=== PATIENT | female | born 1955 | race Caucasian/White ===

== ENCOUNTER → 2016-05-19 | Outpatient (CLI) | payer BC ==
[~2016-05-19] MED LIST: ACYC1CAP8 PO; AMIT10TA6 PO; ASCA500 PO; B-COTAB18 PO; CALC500C3; CONJ0.453 PO; CYCL5TAB PO; METH4PAK PO; MULT-506 PO; OMEG10002 PO; OXYC1TAB3 PO; PRLSR20 PO; PYRI100T4 PO; ZNTT/150 PO; [UNRECOGNIZED DRUG - CODE] PO
[2016-05-19 14:00] LABS: URINE APPEARANCE CLEAR (CLEAR); URINE BILIRUBIN NEG (NEG); URINE COLOR YELLOW; URINE EPITHELIAL CELL AUTO 0-5 /lpf (0-5); URINE NITRITE NEG (NEG); URINE PH 7.5 (4.5-7.5); URINE SPECIFIC GRAVITY 1.003 (1.000-1.030); UROBILINOGEN NEG (NEG)
[2016-05-19 14:04] LABS: MANUAL MICROSCOPIC REQUIRED? NO; REVIEW REQ? NO
== END | disposition home or self-care (01) ==
LOC: C.LABSPEC 11:00
PROVIDERS: ATTEND Nurse Practitioner Family
DX: R39.9 Unspecified symptoms and signs involving the genitourinary system (principal)

== ENCOUNTER 2016-06-25 18:13 | Emergency (ER) | payer BC ==
[~2016-06-25] VITALS: Ht 154.9 cm; Wt 73.4 kg
[~2016-06-25 18:13] MED LIST changes: +ACYC-57 PO; -ACYC1CAP8 PO; -AMIT10TA6 PO; -ASCA500 PO; -B-COTAB18 PO; -CYCL5TAB PO; -METH4PAK PO; -MULT-506 PO; -OMEG10002 PO; -OXYC1TAB3 PO; -PRLSR20 PO; -PYRI100T4 PO; -[UNRECOGNIZED DRUG - CODE] PO
[2016-06-25 18:51] VITALS: TEMP 36.8; Ht 154.9 cm; Wt 73.4 kg
[2016-06-25] MEDS ORDERED: DEXAMETHASONE SOD INJ 10 MG/ML VIAL IV STA (19:40)
[2016-06-25] MEDS ORDERED: KETOROLAC TROMETHAMINE 30 MG/ML VIAL IV STA (19:40)
[2016-06-25] MEDS ORDERED: ASCA500 PO (20:10)
[2016-06-25] MEDS ORDERED: AMIT10TA6 PO (20:10)
[2016-06-25] MEDS ORDERED: PRLSR20 PO (20:10)
[2016-06-25] MEDS ORDERED: MULT-506 PO (20:10)
[2016-06-25] MEDS ORDERED: PYRI100T4 PO (20:10)
[2016-06-25] MEDS ORDERED: CYCL5TAB PO (20:10)
[2016-06-25] MEDS ORDERED: [UNRECOGNIZED DRUG - CODE] PO (20:10)
[2016-06-25] MEDS ORDERED: B-COTAB18 PO (20:10)
[2016-06-25] MEDS ORDERED: OMEG10002 PO (20:10)
[2016-06-25 20:21] LABS: HEMATOCRIT 35.1 % (37-47); MEAN CELL VOLUME 81.6 fL (80-100); MEAN CORPUSCULAR HEMOGLOBIN 27.4 pg (25-34); MEAN CORPUSCULAR HGB CONC 33.6 g/dl (32-36); PLATELET COUNT 358 K/uL (130-400); WHITE BLOOD COUNT 9.77 K/uL (4.8-10.8)
--- NOTE | 2016-06-25 20:35 | DIAGNOSTIC IMAGING REPORT ---
L-SPINE MIN 4 VIEWS ROUTINE CLINICAL HISTORY: Low back pain with radiation to right leg COMPARISON: None FINDINGS: Vertebral body heights are maintained. There is mild rightward curvature of the lumbar spine. No fracture or suspicious lesion is present. There is minimal disc space narrowing at L5-S1. There is mild facet arthrosis within the lumbar spine at several levels. Pelvic calcifications likely reflect phleboliths. IMPRESSION: 1. No acute lumbar spine fracture or subluxation. 2. Mild multilevel degenerative disc disease and facet arthrosis. Electronically signed by: Jignesh Fontenot M.D. 06/25/2016 8:34 PM Dictated Date/Time: 06/25/2016 8:33 PM
[2016-06-25 20:39] LABS: BUN/CREATININE RATIO 10.8 (10-20); CALCIUM 8.9 mg/dl (8.5-10.1); CREATININE 0.84 mg/dl (0.60-1.20); MAGNESIUM 2.2 mg/dl (1.8-2.4); POTASSIUM 3.6 mmol/L (3.5-5.1)
[2016-06-25 20:42] LABS: ALB/GLOB RATIO 1.1 (0.9-2)
[2016-06-25 20:43] LABS: BASO % 0.5 %; BASO ABS # 0.05 K/uL (0-0.2); COMPLETE YES; EOS % 2.4 %; IG% 0.3 %; LYMPH % 37.4 %; LYMPH ABS # 3.65 K/uL (1.2-3.4); NEUT % 50.4 %
--- NOTE | 2016-06-25 21:33 | DIAGNOSTIC IMAGING REPORT ---
RIGHT LOWER EXTREMITY VENOUS DOPPLER CLINICAL HISTORY: Right lower extremity pain COMPARISON STUDY: No previous studies for comparison. TECHNIQUE: Sonography of the deep venous system of the right lower extremity was performed. Compression and augmentation were evaluated. FINDINGS: The common femoral, superficial femoral and popliteal veins were compressible. Augmentation was normal. Flow was shown within the deep calf vessels. IMPRESSION: No evidence of deep venous thrombus within the right lower extremity. Electronically signed by: Jignesh Fontenot M.D. 06/25/2016 9:32 PM Dictated Date/Time: 06/25/2016 9:31 PM
[2016-06-25] MEDS ORDERED: OXYCODONE IR HOME PACK PO STA (21:56)
[2016-06-25] MEDS ORDERED: OXYC1TAB3 PO (21:58)
[2016-06-25] MEDS ORDERED: METH4PAK PO (21:58)
--- NOTE | 2016-06-25 22:00 | EMERGENCY ROOM VISIT NOTE ---
History First contact with patient: 19:19 Chief Complaint: LEG PAIN,LEG INJURY Stated Complaint: BURNING THROBBING PAIN ON R HIP,LIVER,THIGH,LEG History of Present Illness The patient is a 60 year old female who presents to the Emergency Room via private vehicle accompanied by female friend who identifies as a chiropractor with complaints of "burning and throbbing pain on right hip, thigh, leg". The patient states that she had low back pain 2 weeks ago, and developed cramps in the buttocks region and into her thigh. She states that the leg pain radiating down the leg began today when she woke up. She feels as though she has trouble standing and walking secondary to the pain and burning/throbbing in the right leg. She is accompanied by her friend who drove her here whom is also a chiropractor. The chiropractor states that she auscultated her groin region and believes she heard a bruit. She is concerned about a clot in this region. The patient rates the right lower extremity pain as an 8/10. The patient denies any fevers, chills, chest pain, shortness of breath, nausea, vomiting, lower extremity weakness, bowel or bladder incontinence, numbness or tingling in the genital region, urinary symptoms, trauma, falls, history of PE or DVT. Patient did recently stop taking hormones. Review of Systems A complete 6-point Review of Systems was discussed with the patient, with pertinent positives and negatives listed in the History of Present Illness. All remaining Review of Systems questions can be considered negative unless otherwise specified. Past Medical/Surgical History Psoriasis, facelift, left shoulder surgery, Family History Heart disease, cancer, lung disease, gallbladder disease Social History Smoking Status: Never Smoker Marital Status: single Occupation Status: employed Current/Historical Medications Scheduled Acyclovir (Zovirax), 400 MG PO DAILY Amitriptyline Hcl (Elavil), 20 MG PO DAILY Ascorbic Acid (Vitamin C), 1 TAB PO DAILY B-Complex Vitamins (Vitamin B Complex), 1 TAB PO DAILY Cyclobenzaprine Hcl (Flexeril), Unknown Dose PO TID Methylprednisolone (Medrol Dosepak), 0 PO DAILY Multiple Vitamin (Multivitamin Iron-Free), 1 TAB PO 6XWK Multivitamin (Multivitamin), 1 TAB PO WK Heath-3 Fatty Acids (Fish Oil), 1 TAB PO DAILY Omeprazole (Prilosec), 1 TAB PO DAILY Pyridoxine (Vitamin B6), 1 TAB PO DAILY Scheduled PRN Oxycodone Ir (Roxicodone Ir), 1-2 TAB PO Q4H PRN for Pain Allergies Coded Allergies: Conjugated Estrogens (Verified Allergy, Intermediate, VAG BURNING AND RASH , ABD PAIN, 06/25/16) Physical Exam Vital Signs Date Time Temp Pulse Resp B/P Pulse Ox O2 Delivery O2 Flow Rate FiO2 06/25/16 22:18 75 18 133/76 96 06/25/16 18:51 36.8 85 18 125/81 98 Room Air Physical Exam VITAL SIGNS - Vital signs and nursing notes were reviewed. Patient is afebrile , normotensive, non-tachycardic and is saturating well on room air 98%. GENERAL -60-year-old female appearing her stated age who is in no acute distress. Communicates well with provider and answers questions appropriately. SKIN - Without rashes. HEAD - NC/AT. EYES - Sclera anicteric. Palpebral conjunctiva pink and moist with no injection noted. EARS - No deformities of external structures noted on gross examination bilaterally. NOSE - Midline and without cyanosis. No epistaxis or purulent drainage noted. Septum midline without deviation or septal hematoma noted. MOUTH/OROPHARYNX - Without perioral cyanosis. NECK - Neck with FROM. Supple to palpation. No lymphadenopathy noted. No nuchal rigidity. LUNGS - Chest wall symmetric without accessory muscle use, intercostals retractions, or central cyanosis. Normal vesicular breath sounds CTA B/L. No wheezes, rales, or rhonchi appreciated. CARDIAC - RRR with S1/S2. No murmur, rubs, or gallops appreciated. MUSCULOSKELETAL: No bony tenderness in the spine or hip. There is tenderness to palpation overlying the musculature of the right lower extremity. EXTREMITIES - No clubbing or peripheral cyanosis. No pretibial edema present. WNL dorsalis pedis pulses palpated in the right lower extremity. Positive straight leg raise on the right. Negative on the left. +5/5 strength noted in UE/LE bilaterally. NEUROLOGIC - Cranial nerves II through XII grossly intact. Sensory intact to light touch throughout. Patellar reflexes +2/4. PSYCH - Pt is very pleasant and interacts well with examiner. Medical Decision & Procedures ER Provider Diagnostic Interpretation: RIGHT LOWER EXTREMITY VENOUS DOPPLER CLINICAL HISTORY: Right lower extremity pain COMPARISON STUDY: No previous studies for comparison. TECHNIQUE: Sonography of the deep venous system of the right lower extremity was performed. Compression and augmentation were evaluated. FINDINGS: The common femoral, superficial femoral and popliteal veins were compressible. Augmentation was normal. Flow was shown within the deep calf vessels. IMPRESSION: No evidence of deep venous thrombus within the right lower extremity. Electronically signed by: Jignesh Fontenot M.D. 06/25/2016 9:32 PM Dictated Date/Time: 06/25/2016 9:31 PM L-SPINE MIN 4 VIEWS ROUTINE CLINICAL HISTORY: Low back pain with radiation to right leg COMPARISON: None FINDINGS: Vertebral body heights are maintained. There is mild rightward curvature of the lumbar spine. No fracture or suspicious lesion is present. There is minimal disc space narrowing at L5-S1. There is mild facet arthrosis within the lumbar spine at several levels. Pelvic calcifications likely reflect phleboliths. IMPRESSION: 1. No acute lumbar spine fracture or subluxation. 2. Mild multilevel degenerative disc disease and facet arthrosis. Electronically signed by: Jignesh Fontenot M.D. 06/25/2016 8:34 PM Dictated Date/Time: 06/25/2016 8:33 PM Laboratory Results 06/25/16 19:55 Red Blood Count 4.30, Mean Corpuscular Volume 81.6, Mean Corpuscular Hemoglobin 27.4, Mean Corpuscular Hemoglobin Concent 33.6, Mean Platelet Volume 10.0, Neutrophils (%) (Auto) 50.4, Lymphocytes (%) (Auto) 37.4, Monocytes (%) (Auto) 9.0, Eosinophils (%) (Auto) 2.4, Basophils (%) (Auto) 0.5, Neutrophils # (Auto) 4.93, Lymphocytes # (Auto) 3.65, Monocytes # (Auto) 0.88, Eosinophils # (Auto) 0.23, Basophils # (Auto) 0.05 06/25/16 19:55 Test 06/25/16 19:55 White Blood Count 9.77 K/uL (4.8-10.8) Red Blood Count 4.30 M/uL (4.2-5.4) Hemoglobin 11.8 g/dL (12.0-16.0) Hematocrit 35.1 % (37-47) Mean Corpuscular Volume 81.6 fL (80-100) Mean Corpuscular Hemoglobin 27.4 pg (25-34) Mean Corpuscular Hemoglobin Concent 33.6 g/dl (32-36) Platelet Count 358 K/uL (130-400) Mean Platelet Volume 10.0 fL (7.4-10.4) Neutrophils (%) (Auto) 50.4 % Lymphocytes (%) (Auto) 37.4 % Monocytes (%) (Auto) 9.0 % Eosinophils (%) (Auto) 2.4 % Basophils (%) (Auto) 0.5 % Neutrophils # (Auto) 4.93 K/uL (1.4-6.5) Lymphocytes # (Auto) 3.65 K/uL (1.2-3.4) Monocytes # (Auto) 0.88 K/uL (0.11-0.59) Eosinophils # (Auto) 0.23 K/uL (0-0.5) Basophils # (Auto) 0.05 K/uL (0-0.2) RDW Standard Deviation 40.6 fL (36.4-46.3) RDW Coefficient of Variation 13.5 % (11.5-14.5) Immature Granulocyte % (Auto) 0.3 % Immature Granulocyte # (Auto) 0.03 K/uL (0.00-0.02) Red Blood Cell Morphology Unremarkable Anion Gap 7.0 mmol/L (3-11) Est Creatinine Clear Calc Drug Dose 64.4 ml/min Estimated GFR () 86.9 Estimated GFR (Non- 75.0 BUN/Creatinine Ratio 10.8 (10-20) Calcium Level 8.9 mg/dl (8.5-10.1) Magnesium Level 2.2 mg/dl (1.8-2.4) Total Bilirubin 0.3 mg/dl (0.2-1) Aspartate Amino Transf (AST/SGOT) 12 U/L (15-37) Alanine Aminotransferase (ALT/SGPT) 32 U/L (12-78) Alkaline Phosphatase 72 U/L (45-117) Total Protein 7.6 gm/dl (6.4-8.2) Albumin 4.0 gm/dl (3.4-5.0) Globulin 3.6 gm/dl (2.5-4.0) Albumin/Globulin Ratio 1.1 (0.9-2) Medications Administered Medications (Trade) Dose Ordered Sig/Luciana Route Start Time Stop Time Status Last Admin Dose Admin Ketorolac Tromethamine (Toradol Inj) 30 mg NOW STAT IV 06/25/16 19:40 06/25/16 19:43 DC 06/25/16 20:05 30 MG Dexamethasone Sodium Phosphate (Decadron Inj) 10 mg NOW STAT IV 06/25/16 19:40 06/25/16 19:43 DC 06/25/16 20:05 10 MG Oxycodone HCl (Roxicodone Immediate Rel 5MG Home Pack) 1 homepack UD STAT PO 06/25/16 21:56 06/25/16 21:57 DC 06/25/16 22:15 1 HOMEPACK Medical Decision Patient was seen and evaluated as above. After obtaining a thorough history and physical examination IV access was initiated and the above workup was performed. Patient is most likely experiencing lumbar radiculopathy into the right lower extremity. No evidence of cauda equina syndrome. She was given 30 mg of Toradol and 10 mg of Decadron intravenously for her pain and likely inflammation in the lumbar spine. Laboratory results reveals no leukocytosis. There is mild anemia noted. Electrolytes within normal limits. Renal function within normal limits. AST slightly low at 12. No evidence of liver failure. Ultrasound negative for DVT. Results as above. Lumbar results of the radiograph as above. No acute fracture or evidence of acute process. Patient was educated upon these findings. Patient was reevaluated and did not experience much relief from the medications. I do believe that time and rest will help this region. The patient states urine he has appointment with her family doctor as well as a contact center specialist in the near future. She is to see Dr. Sanchez of [facility] in the next week or so. I do not appreciate any emergent findings at this time. She'll be discharged home with a prescription for OxyIR and a Medrol Dosepak. This is to help with pain and inflammation. She already has a Flexeril prescription. She was educated upon management of today's findings, educated upon worrisome symptoms which to return , had questions prior to discharge and was discharged home in good condition. Because the patient had excellent pulses at the distalmost location of the right lower extremity I do not suspect any arterial compromise that is significant at this time. I do not believe that an arterial Dopplers warranted. I do not believe that an MRI at this time is warranted. In the evaluation and treatment of this patient the following differential diagnoses were entertained: Lumbar spine fracture, hip dislocation, hip fracture , lumbar radiculopathy in the right lower extremity, DVT, arterial clot, among others. [place] Drug Monitoring Program Search Results: patient reviewed within database, no issues identified Impression Primary Impression: Low back pain radiating to right leg Additional Impression: Anemia Departure Information Dispostion Home / Self-Care Condition GOOD Prescriptions Oxycodone Ir (Roxicodone Ir) 5 Mg Tab 1-2 TAB PO Q4H Y for Pain, #15 TAB For Initial Treatment Prov: Cong Brennan PA-C 06/25/16 Methylprednisolone (MEDROL DOSEPAK) 4 Mg Davon 0 PO DAILY, #1 PKT Prov: Cong Brennan PA-C 06/25/16 Referrals Chriss Sánchez III, M.D. (PCP) Patient Instructions My [facility] Additional Instructions You have been treated in the Emergency Department for Back Pain. You have been prescribed Oxy IR to be used for pain control. This is a narcotic medication. You cannot drive or consume alcohol while on this medicine. This medicine should only be used for pain that cannot be controlled with over-the- counter pain medicines. You have been prescribed a Medrol Dosepak. Take this medication as prescribed. You should take the COMPLETE course of this medication. This is an anti- inflammatory medicine that will help to minimize your symptoms. For pain control, you can use the following [id number] medicines (if >12 yo): - Regular strength (325mg/tab) Tylenol (acetaminophen) 2 tabs every 4-6 hours as needed. Do not exceed 12 tablets in a 24 hour period. Avoid taking more than 4 grams (4000 mg) of Tylenol per day. This includes any other sources of acetaminophen you may take on a regular basis. - Regular strength (200 mg/tab) Advil (ibuprofen) 1-2 tabs every 4-6 hours as needed. Do not exceed a dose of 3200 mg per day. If this is an acute injury, ice can be applied to the area of pain for the first 3 days to help decrease pain and inflammation. After the first 3 days, a heating pad can be used over the area for continued soothing relief. You should schedule a follow-up appointment in 2-3 days with your Primary Care Provider for further evaluation and treatment of your back pain. Please keep your scheduled appointment with the contact center specialist. Return to the Emergency Department if your current symptoms worsen despite treatment course outlined above, or if you develop any of the following symptoms : intractable pain despite aforementioned treatment course, loss of control of your bowel or bladder, numbness or tingling in your groin, or development of a fever. Problem Qualifiers
[2016-06-25 22:18] VITALS: BP 133/76; PULSE 75; O2SAT 96
== END 2016-06-25 22:19 | disposition home or self-care (01) ==
LOC: C.EDB 18:15 → C.EDD 22:19
DX: M54.5 Low back pain (principal); M79.604 Pain in right leg; D64.9 Anemia, unspecified; Z98.890 Other specified postprocedural states; Z79.899 Other long term (current) drug therapy; Z88.8 Allergy status to other drugs, medicaments and biological substances; Z82.49 Family history of ischemic heart disease and other diseases of the circulatory system; Z80.9 Family history of malignant neoplasm, unspecified; Z83.79 Family history of other diseases of the digestive system

== ENCOUNTER 2021-11-07 01:00 | Observation (INO) ==
[2021-11-07] MEDS ORDERED: SODIUM CHLORIDE 0.9% 1000ML 1,000 ML IV ONE (01:33)
[2021-11-07 01:57] LABS: Basophils # (auto) 0.07 K/uL (0-0.2); Basophils % (auto) 0.6 %; Eosinophils # (auto) 0.18 K/uL (0-0.50); Eosinophils % (auto) 1.4 %; Hematocrit (blood only) 38.7 % (34.1-44.9); Hemoglobin 12.6 g/dl (12.0-16.0); Immature Granulocytes # (auto) 0.05 K/uL (0.00-0.02); Immature Granulocytes % (auto) 0.4 %; Lymphocytes # (auto) 1.89 K/uL (1.2-3.4); Mean Corpuscular Hemoglobin 27.9 pg (25.0-34.0); Mean Corpuscular Hgb Conc 32.6 g/dL (32.0-36.0); Mean Corpuscular Volume 85.6 fL (80.0-100.0); Monocytes # (auto) 0.85 K/uL (0.24-0.82); Monocytes % (auto) 6.8 %; Neutrophils # (auto) 9.52 K/uL (1.4-6.5); Neutrophils % (auto) 75.8 %; Platelet Count 367 K/uL (130-400); RDW Coefficient of Variation 13.2 % (11.5-14.5); RDW Standard Deviation 41.2 fL (36.4-46.3); Red Blood Count 4.52 M/uL (3.93-5.22); White Blood Count 12.56 K/ul (4.8-10.8)
[2021-11-07 02:08] LABS: Albumin Globulin Ratio 1.4 (0.9-2); Albumin Level 4.3 gm/dl (3.4-5.0); BUN Creatinine Ratio 17.6 (10-20); Bilirubin,Total 0.5 mg/dl (0.2-1.0); Calcium 9.4 mg/dl (8.5-10.1); Creatinine Clr Calc Pharmacy 54.2 ml/min; Est GFR (African American) 61.9 ml/min; Est GFR (Non-African American) 53.5 ml/min; Potassium 3.6 mmol/L (3.5-5.1); Total Protein 7.3 gm/dl (6.0-8.3)
[2021-11-07] MEDS ORDERED: KETOROLAC 30 MG/ML VIAL IV ONE (02:43)
--- NOTE | 2021-11-07 02:58 | Emergency Department Note ---
Impression & Plan Acute non-ST elevation myocardial infarction (NSTEMI) The patient will be evaluated by the [facility] Hospitalist. She will be started on a heparin drip ED Provider Note NAME: ALBERT SELLERS AGE: 65 SEX: F ARRIVES VIA: Ambulance INFORMANT: Patient ED PROVIDER(S): Agnes Roberts DO CHIEF COMPLAINT: Vomiting PLAN: Disposition: Admit to the hospital on a heparin drip Condition: Stable MEDICAL DECISION MAKING: This is a 65-year-old female patient who presents to the emergency department after an episode of vomiting that began suddenly. This was followed by chest discomfort that she rates as an 8/10. Patient had a normal-appearing EKG and no cardiac history herself. The patient thought the chest discomfort she was experiencing was secondary to the extreme retching that she had from the vomiting. Patient was noted to have an elevated troponin here in the emergency department. She was given oral aspirin to chew and started on IV heparin drip. The patient has been feeling tired over the past 3 to 4 days. She has noted heartburn/GERD for the past couple of days and started herself on OTC omeprazole. I discussed the case with the [facility] Hospitalist and they will evaluate for further management. Triage Nursing notes reviewed and agree with them. Prior medical records reviewed Vital Signs: reviewed and remarkable Differential diagnosis: Cardiac ischemia, GERD, pancreatitis, gastritis, foodborne illness ER treatment provided: IV normal saline IV Toradol Oral aspirin IV heparin drip Diagnostics interpreted by me: ECG: Normal sinus rhythm at a rate of [address] segment elevation or signs of ischemia. There is no ectopy. Cardiac Monitoring: Normal sinus rhythm at a rate of 74. Laboratory studies: See below Imaging studies: As per my interpretation Portable chest x-ray: No cardiomegaly; no pulmonary consolidation or pleural effusion HPI: 65/F arrives for evaluation of vomiting. The patient had a sudden onset of vomiting at 945 this evening that was followed by an episode of chest pain that she rated as an 8/10. She does describe feeling tired over the past 3-4 days. She also describes having GERD for the last few days for which she started taking [id number] omeprazole. ROS: See above HPI for pertinent positives & negatives. A total of 10 systems reviewed and were otherwise negative. PAST MEDICAL HISTORY:Palpitations/increased heart rate for which she takes met oprolol; migraine; GERD; sleep problems PAST SURGICAL HISTORY:See Below FAMILY HISTORY:See Below SOCIAL HISTORY:See Below HOME MEDICATIONS:See list ALLERGIES:See list VITALS:See Below PHYSICAL EXAMINATION: HEENT: Head - normocephalic and atraumatic. Pupils are equal, round, and reactive to light. Extraocular eye muscles are intact, and sclera are anicteric. Nose - moist nasal mucosa without discharge. Mouth - moist buccal mucosa. Oropharynx is nonerythematous and there is no tonsillar exudate or edema noted. Neck: Supple; no JVD cervical lymphadenopathy Chest: Pain with palpation over the bilateral anterior chest wall Heart: Regular rate and rhythm. There is a normal S1 and S2 with no murmurs, clicks, or gallops appreciated. Lungs: Clear to auscultation bilaterally with no wheezes, rales, or rhonchi. Abdomen: Soft, completely nontender, nondistended, with good bowel sounds. There are no palpable pulsatile masses or hepatosplenomegaly. There is no guarding, rigidity, or rebound noted. Extremities: No evidence of cyanosis, clubbing, or edema. There are easily palpable peripheral pulses. Skin: warm and dry with good turgor and no rashes. Rectal exam: Hemoccult negative stool ED COURSE: Times/Reassessments: 0120: Patient was evaluated in room A10. Complete history and physical was performed. An IV lock was initiated and labs were drawn as above. A twelve-lead EKG was obtained as described above. There was placed for continuous cardiac monitoring. Patient was in a normal sinus rhythm at a rate of 83. Chest x-ray was performed. It was unremarkable. The patient continued to complain of some soreness in her chest from retching so hard with vomiting. I reevaluated the patient and examined her again. She had reproducible discomfort with palpation of the anterior chest wall. She was given a dose of IV Toradol with significant relief of her pain. Patient was noted to have a positive high-sensitivity troponin. She was given 4 baby aspirin to chew. She remained chest pain-free. She had a rectal exam wh ich was Hemoccult negative. Coagulation studies were drawn. She was given a heparin bolus and started on IV heparin drip. I have personally spent greater than 30 minutes of critical care time in the direct management of this patient. This includes bedside care, interpretation of diagnostic studies, and testing, discussion with consultants, patient, and family members, and other required patient management activities. This 30 minutes is in excess of all separately billable procedures. Agnes Roberts DO Past Med/Surg History Medical History Hx of ectopic Migraine headache Recurrent herpes simplex Tachycardia Surgical History Hx of section Hx of shoulder surgery Status post ectopic Family History Father Non-Hodgkin lymphoma Cancer Non-hodgkin's lymphoma Grandfather (Paternal) Lung cancer Aunt Brain cancer Cancer brain Denies family history of Ovarian cancer Prostate cancer Myocardial infarction Breast cancer Colorectal cancer Social History Smoking Status: Never smoker Hx Alcohol Use: No Hx Substance Use: No Preferred Language: Cymraes marital status: Single Current Living Situation: Significant Other current occupational status: employed Feels Safe at Home: Yes caffeine: Yes Dental Care, Regularly: Yes Physical Activity Frequency: 3-4 Times per Week Seatbelt Use: always Sunscreen Use: Yes Allergies Allergies Allergy/AdvReac Type Severity Reaction Status Date / Time estrogens, conjugated Allergy Intermediate VAG Verified 09/28/21 13:02 BURNING AND RASH, ABD PAIN Home Meds Home Medications Medication Instructions Recorded Confirmed mometasone 50 mcg/actuation nasal 1 spray intranasal BID PRN allergy 05/06/20 09/28/21 spray symptoms Previous Rx's Medication Instructions Recorded sumatriptan succinate 50 mg tablet See Rx Instructions PO .COMPLEX 09/05/20 #90 tabs metoprolol succinate 25 mg See Rx Instructions .Route 06/12/21 tablet,extended release 24 hr .COMPLEX #45 tabs zolpidem 5 mg tablet (Ambien) See Rx Instructions .Route 06/12/21 .COMPLEX #45 tabs acyclovir 200 mg capsule 200 mg PO .once daily #90 caps 09/27/21 Results & Data (ED) Vital Signs Vital Signs - 24 hr 11/07/21 01:00 11/07/21 01:38 11/07/21 01:30 Temperature 36.6 C Temperature Source Temporal Artery Scan Pulse Rate 79 Pulse Rate [Right Finger] 74 Respiratory Rate 20 20 Respiratory Effort / Characteristics Respiratory Depth Blood Pressure 146/72 H Blood Pressure [Right Arm] 129/77 Blood Pressure Mean 96 Blood Pressure Mean [Right Arm] 94 Blood Pressure Position Sitting Blood Pressure Position [Right Arm] Sitting Pulse Oximetry 98 98 95 Oxygen Delivery Method Room Air Room Air Room Air Sepsis Recent Fever Within 48 Hours No Sepsis New/Unexplained Change in Mental Status N/A Sepsis Action Taken by Nursing No Action Required 11/07/21 04:06 11/07/21 04:39 Temperature Temperature Source Pulse Rate Pulse Rate [Right Finger] 83 87 Respiratory Rate 20 20 Respiratory Effort / Characteristics Non-Labored Respiratory Depth Normal Blood Pressure Blood Pressure [Right Arm] 116/69 138/78 Blood Pressure Mean Blood Pressure Mean [Right Arm] 84 98 Blood Pressure Position Blood Pressure Position [Right Arm] Sitting Pulse Oximetry 98 97 Oxygen Delivery Method Room Air Room Air Sepsis Recent Fever Within 48 Hours Sepsis New/Unexplained Change in Mental Status Sepsis Action Taken by Nursing Laboratory Data Result diagrams: 11/07/21 01:07 11/07/21 01:07 Lab Results 11/07/21 11/07/21 11/07/21 Range/Units 01:07 01:07 01:07 WBC 12.56 H (4.8-10.8) K/ul RBC 4.52 (3.93-5.22) M/uL Hgb 12.6 (12.0-16.0) g/dl Hct 38.7 (34.1-44.9) % MCV 85.6 (80.0-100.0) fL MCH 27.9 (25.0-34.0) pg MCHC 32.6 (32.0-36.0) g/dL RDW Std Deviation 41.2 (36.4-46.3) fL RDW Coeff of Timo 13.2 (11.5-14.5) % Plt Count 367 (130-400) K/uL MPV 11.0 (9.4-12.3) fL Immature Gran % (Auto) 0.4 % Neut % (Auto) 75.8 % Lymph % (Auto) 15.0 % Bay % (Auto) 6.8 % Eos % (Auto) 1.4 % Baso % (Auto) 0.6 % Neut # (Auto) 9.52 H (1.4-6.5) K/uL Lymph # (Auto) 1.89 (1.2-3.4) K/uL Bay # (Auto) 0.85 H (0.24-0.82) K/uL Eos # (Auto) 0.18 (0-0.50) K/uL Baso # (Auto) 0.07 (0-0.2) K/uL Immature Gran # (Auto) 0.05 H (0.00-0.02) K/uL PT (9.0-12.0) Seconds INR (0.9-1.1) APTT (21.0-31.0) Seconds PTT Ratio Sodium 139 (136-145) mmol/L Potassium 3.6 (3.5-5.1) mmol/L Chloride 102 (98-107) mmol/L Carbon Dioxide 26 (21-32) mmol/L Anion Gap 11 (3-11) BUN 19 (6-23) mg/dl Creatinine 1.08 (0.6-1.2) mg/dl Est Cr Clr Drug Dosing 54.2 ml/min Est GFR ( Amer) 61.9 ml/min Est GFR (Non-Af Amer) 53.5 ml/min BUN/Creatinine Ratio 17.6 (10-20) Glucose 124 H (70-99(Fasting)) mg/dl Calcium 9.4 (8.5-10.1) mg/dl Total Bilirubin 0.5 (0.2-1.0) mg/dl AST 24 (13-39) U/L ALT 31 (7-52) U/L Alkaline Phosphatase 80 (34-104) U/L Troponin I High Sens 134.3 H* (0-14) pg/ml Total Protein 7.3 (6.0-8.3) gm/dl Albumin 4.3 (3.4-5.0) gm/dl Globulin 3.0 (2.5-4.0) gm/dl Albumin/Globulin Ratio 1.4 (0.9-2) Lipase 44 (11-82) U/L Urine Color Urine Appearance (Clear) Urine pH (4.5-7.5) Ur Specific [place] (1.000-1.030) Urine Protein (Negative) Urine Glucose (UA) (Negative) Urine Ketones (Negative) Urine Blood (Negative) Urine Nitrite (Negative) Urine Bilirubin (Negative) Urine Urobilinogen (Negative) Ur Leukocyte Esterase (Negative) SARS-CoV-2, RNA, NAAT (NEGATIVE) 11/07/21 11/07/21 11/07/21 Range/Units 01:07 03:00 04:22 WBC (4.8-10.8) K/ul RBC (3.93-5.22) M/uL Hgb (12.0-16.0) g/dl Hct (34.1-44.9) % MCV (80.0-100.0) fL MCH (25.0-34.0) pg MCHC (32.0-36.0) g/dL RDW Std Deviation (36.4-46.3) fL RDW Coeff of Timo (11.5-14.5) % Plt Count (130-400) K/uL MPV (9.4-12.3) fL Immature Gran % (Auto) % Neut % (Auto) % Lymph % (Auto) % Bay % (Auto) % Eos % (Auto) % Baso % (Auto) % Neut # (Auto) (1.4-6.5) K/uL Lymph # (Auto) (1.2-3.4) K/uL Bay # (Auto) (0.24-0.82) K/uL Eos # (Auto) (0-0.50) K/uL Baso # (Auto) (0-0.2) K/uL Immature Gran # (Auto) (0.00-0.02) K/uL PT 10.3 (9.0-12.0) Seconds INR 1.0 (0.9-1.1) APTT 26.5 (21.0-31.0) Seconds PTT Ratio 1.0 Sodium (136-145) mmol/L Potassium (3.5-5.1) mmol/L Chloride (98-107) mmol/L Carbon Dioxide (21-32) mmol/L Anion Gap (3-11) BUN (6-23) mg/dl Creatinine (0.6-1.2) mg/dl Est Cr Clr Drug Dosing ml/min Est GFR ( Amer) ml/min Est GFR (Non-Af Amer) ml/min BUN/Creatinine Ratio (10-20) Glucose (70-99(Fasting)) mg/dl Calcium (8.5-10.1) mg/dl Total Bilirubin (0.2-1.0) mg/dl AST (13-39) U/L ALT (7-52) U/L Alkaline Phosphatase (34-104) U/L Troponin I High Sens (0-14) pg/ml Total Protein (6.0-8.3) gm/dl Albumin (3.4-5.0) gm/dl Globulin (2.5-4.0) gm/dl Albumin/Globulin Ratio (0.9-2) Lipase (11-82) U/L Urine Color Yellow Urine Appearance Clear (Clear) Urine pH 7.0 (4.5-7.5) Ur Specific [place] 1.014 (1.000-1.030) Urine Protein Negative (Negative) Urine Glucose (UA) Negative (Negative) Urine Ketones Negative (Negative) Urine Blood Negative (Negative) Urine Nitrite Negative (Negative) Urine Bilirubin Negative (Negative) Urine Urobilinogen Negative (Negative) Ur Leukocyte Esterase Negative (Negative) SARS-CoV-2, RNA, NAAT NEGATIVE (NEGATIVE) Administered Medications Heparin Sodium/Dextrose (Heparin Sodium/Dextrose) 25,000 units in 500 mls @ 0.02 mls/hr IV .Q24H [facility]; Protocol Stop: 12/07/21 04:44 Last Admin: 11/07/21 05:04 Dose: 1,200 units/hr, 24 mls/hr Documented By: NARGIS Co-signed By: MARTHA Discontinued Medications Aspirin (Aspirin Chew 324 Mg) 324 mg PO NOW STA Stop: 11/07/21 04:15 Last Admin: 11/07/21 04:23 Dose: 324 mg Documented By: MARTHA Heparin Sodium (Porcine) (Heparin Sod (Porcine) 1000 Unit/Ml) 1 units IV NOW ONE Stop: 11/07/21 04:32 Last Admin: 11/07/21 05:04 Dose: 5,000 units Documented By: NARGIS Co-signed By: MARTHA Heparin Sodium/Dextrose (Heparin Iv Adult Wt-Based Standard With Bolus Protocol) 1 each IV NOW STA; Protocol Stop: 11/07/21 04:16 Last Admin: 11/07/21 05:06 Dose: 1 each Documented By: MARTHA Sodium Chloride (Nss 1000ml) 1,000 mls @ 999 mls/hr IV .Q1H1M ONE Stop: 11/07/21 02:33 Last Infusion: 11/07/21 02:39 Dose: 0 mls/hr Documented By: Admin: 11/07/21 01:42 Dose: 999 mls/hr Documented By: MARTHA Ketorolac Tromethamine (Ketorolac 30 Mg/Ml Vial) 30 mg IV NOW ONE Stop: 11/07/21 02:44 Last Admin: 11/07/21 02:52 Dose: 30 mg Documented By: MARTHA Ondansetron HCl (Ondansetron Inj 2 Mg/Ml 2 Ml Vial) 4 mg IV NOW STA Stop: 11/07/21 05:00 Last Admin: 11/07/21 05:07 Dose: 4 mg Documented By: MARTHA Ondansetron HCl (Ondansetron Inj 2 Mg/Ml 2 Ml Vial) Confirm Administered Dose 4 mg .ROUTE .STK-MED ONE Stop: 11/07/21 05:02 Last Admin: 11/07/21 05:05 Dose: 4 mg Documented By: NARGIS Discharge Plan Visit Data Chief Complaint: Vomiting ED Provider: Agnes Roberts Discharge Problem: Acute non-ST elevation myocardial infarction (NSTEMI) Forms Stand Alone Forms: [facility] Prescriptions Prescriptions: No Action sumatriptan succinate 50 mg tablet See Rx Instructions PO .COMPLEX Qty: 90 0RF Dose Instruction: take 1 tab at onset of headache; if no relief may repeat 1 tab in 2hr; max = 4 tabs/day (24hr) PO Rx Instructions: take 1 tab at onset of headache; if no relief may repeat 1 tab in 2hr; max = 4 tabs/day (24hr) PO acyclovir 200 mg capsule 200 mg PO .once daily Qty: 90 1RF mometasone 50 mcg/actuation spray,non-aerosol 1 spray intranasal BID PRN (Reason: allergy symptoms) Rx Instructions: administer into each nostril metoprolol succinate 25 mg tablet extended release 24 hr See Rx Instructions .ROUTE .COMPLEX Qty: 45 3RF Rx Instructions: Take 1/2 tablet by mouth daily in the evening. zolpidem [Ambien] 5 mg tablet See Rx Instructions .ROUTE .COMPLEX Qty: 45 3RF Rx Instructions: Take 1 tablet by mouth every day at bedtime as needed for sleep (may repeat dose x 1 as needed) Referrals Referrals: Paula Kc MD [Primary Care Provider] -
[2021-11-07 03:37] LABS: Appearance Urine Clear (Clear); Bilirubin Urine Negative (Negative); Blood Urine Negative (Negative); Color Urine Yellow; Glucose Urine UA Negative (Negative); Ketones Urine Negative (Negative); Leukocyte Esterase Urine Negative (Negative); Nitrite Urine Negative (Negative); Protein Urine Negative (Negative); Specific Gravity Urine 1.014 (1.000-1.030); Urobilinogen Urine Negative (Negative)
[2021-11-07] MEDS ORDERED: ASPIRIN CHEW 324 MG PO STA (04:14)
[2021-11-07] MEDS ORDERED: Heparin IV Adult Wt-Based Standard WITH Bolus Protocol IV STA (04:15)
[2021-11-07] MEDS ORDERED: HEPARIN SOD (PORCINE) 1000 UNIT/ML IV ONE (04:31)
--- NOTE | 2021-11-07 04:35 | History & Physical Report ---
Date of Service November 07, 2021 Assessment & Plan (1) Acute non-ST elevation myocardial infarction (NSTEMI): Plan: 65yo female with a history of palpitations, osteoarthritis, migraine presents with a one-day history of chest pain, nausea, and vomiting. Chest pain, nausea, vomiting suspected secondary to NSTEMI Patient presented with a one-day history of the above symptoms Vitals on admission notable for mildly elevated BP (140s/70s), no tachycardia or tachypnea, afebrile, spO2 adequate on room air Labs on admission notable for mild leukocytosis (12.6). No anemia, platelets wnl, no electrolyte abnormalities, LFTs wnl, lipase wnl; UA without sign of infection EKG: NSR without overt ischemic change Admission hsTroponin 134.3, repeat pending Symptoms suspected secondary to NSTEMI Admit to med/telemetry In ED, patient started on heparin gtt, administered ASA 324mg, and given NSS 1L bolus (x1), antiemetics, and ketorolac 30mg IV (x1) Cardiology consulted Daily EKG Continue to monitor HSV: continue home acyclovir Migraine: continue home meds FEN: NPO pending possible catheterization, NSS @ 80mL/hr (x1 bag ordered) Code status: full code DVT ppx: SCDs Consults: cardiology Dispo: med/telemetry (2) Nausea: (3) Recurrent herpes simplex: History of Present Illness Primary Care Provider: Paula Kc MD 65yo female with a history of palpitations, osteoarthritis, and migraine presents with a one-day history of chest pain, nausea, and vomiting. Symptoms began suddenly around 21:45 on 11/06. Patient reports vomiting for about two hours before nausea/vomiting resolved, but patient's chest pain continued. CP is described as central, dull pain/pressure, and does not radiate. Also endorses mild SOB. Denies fever, headache, vision changes, palpitations, abdominal pain, or other symptoms including dysuria, hematochezia, melena, dizziness, numbness, tingling, weakness, or other symptoms. Denies recent illness. No travel within the past two weeks. Upon arrival, vitals were notable for mildly elevated BP (140s/70s), no tachycardia or tachypnea, afebrile, spO2 adequate on room air. EKG: NSR without overt ischemic change. Initial labs were notable for mild leukocytosis (12.6). No anemia, platelets wnl, no electrolyte abnormalities, LFTs wnl, lipase wnl. UA without sign of infection. In the ED, patient was administered an NSS bolus 1L (x1), ASA 324mg, ketorolac 30mg IV (x1), and started on a heparin drip. Surrogate decision-maker in case of an emergency: boyfriend Steven (cell: [phone]) Allergies Allergy/AdvReac Type Severity Reaction Status Date / Time estrogens, conjugated Allergy Intermediate VAG Verified 09/28/21 13:02 BURNING AND RASH, ABD PAIN [id number] Allergy Rash Unverified 11/07/21 07:00 [From [facility] Pen] rimegepant [From [facility] ODT] Allergy Nausea Unverified 11/07/21 07:00 Home Medications Medication Instructions Recorded Confirmed Type mometasone 50 mcg/actuation nasal 1 spray intranasal BID PRN allergy 05/06/20 11/07/21 History spray symptoms sumatriptan succinate 50 mg tablet See Rx Instructions PO .COMPLEX 09/05/20 11/07/21 Rx #90 tabs metoprolol succinate 25 mg See Rx Instructions .Route 06/12/21 11/07/21 Rx tablet,extended release 24 hr .COMPLEX #45 tabs zolpidem 5 mg tablet (Ambien) See Rx Instructions .Route 06/12/21 11/07/21 Rx .COMPLEX #45 tabs acyclovir 200 mg capsule 200 mg PO .once daily #90 caps 09/27/21 11/07/21 Rx aluminum-mag hydroxide-simethicone 5 ml PO Q6H PRN indigestion #3,000 11/07/21 Rx 400 mg-400 mg-40 mg/5 mL oral susp mL (Maalox Maximum Strength) aspirin 81 mg tablet,delayed 81 mg PO DAILY 30 days #30 tabs 11/07/21 Rx release famotidine 20 mg tablet 20 mg PO BID 2 weeks #28 tabs 11/07/21 Rx pantoprazole 40 mg tablet,delayed 40 mg PO BID 14 days #28 tabs 11/07/21 Rx release Past Med/Surg History Medical History Hx of ectopic Migraine headache Recurrent herpes simplex Tachycardia Surgical History Hx of section Hx of shoulder surgery Status post ectopic Family History Father Non-Hodgkin lymphoma Cancer Non-hodgkin's lymphoma Grandfather (Paternal) Lung cancer Aunt Brain cancer Cancer brain Denies family history of Ovarian cancer Prostate cancer Myocardial infarction Breast cancer Colorectal cancer Social History Smoking Status: Never smoker Hx Alcohol Use: No Hx Substance Use: No Preferred Language: Kazakh Communication Ability: Effective Computer Aided Drafter Required: No Beliefs That Will Affect Care: None marital status: Single Current Living Situation: Other Current Living Situation Comment: lives with boyfriend current occupational status: employed Feels Safe at Home: Yes caffeine: Yes Dental Care, Regularly: Yes Physical Activity Frequency: 3-4 Times per Week Seatbelt Use: always Sunscreen Use: Yes Assistive Devices: Hearing Aid - Bilateral Physical Exam Physical Exam: Constitutional: well-appearing, no acute distress HEENT: NCAT, no conjunctival injection CV: regular rhythm, no murmur appreciated, extremities well-perfused, no LE edema Resp: CTABL, no wheezes/rales/rhonchi appreciated, no increased work of breathing GI: soft, nondistended, nontender, BS normoactive MSK: mild right calf tenderness with palpation without increased swelling, no increased warmth to palpation, no overlying erythema; left calf nontender Skin: warm, dry, no rash appreciated Neuro: alert, oriented, no focal neurologic deficit appreciated Results & Data Results & Data ([facility]) Vital Signs (Past 12 Hours) Vital Signs Temp Pulse Pulse Resp BP BP Pulse Ox 11/07/21 04:06 83 20 116/69 98 11/07/21 01:30 74 20 129/77 95 11/07/21 01:38 98 11/07/21 01:00 36.6 C 79 20 146/72 H 98 O2 Del Method 11/07/21 04:06 Room Air 11/07/21 01:30 Room Air 11/07/21 01:38 Room Air 11/07/21 01:00 Room Air Supervising Physician Co-Signing Physician Notes Attending addendum: I have physically seen this patient, have supervised the medical residents activities, and agree with the H&P unless as otherwise noted. Assessment and Plan: NSTEMI/hypertension The patient will be admitted to telemetry for serial cardiac enzymes, serial EKG's, cardiac rhythm monitoring and a 2-D echocardiogram with Dopplers. Troponin 134.3 on admission EKG with normal sinus rhythm and no acute ST-T changes Given aspirin 324 mg, Toradol 30 mg IV x1, Bard normal saline 1 L bolus and started on heparin drip by the ED NSS at 80 mils per hour x1 L Consult cardiology Dr. 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
[2021-11-07 04:45] LABS: Prothrombin Time 10.3 Seconds (9.0-12.0)
[2021-11-07] MEDS ORDERED: HEPARIN SODIUM/DEXTROSE 25,000 UNITS/500 ML BAG IV SCH (04:45)
[2021-11-07 04:59] LABS: Partial Thromboplastin Time 26.5 Seconds (21.0-31.0)
[2021-11-07] MEDS ORDERED: ONDANSETRON INJ 2 MG/ML 2 ML VIAL IV STA (04:59)
[2021-11-07] MEDS ORDERED: ONDANSETRON INJ 2 MG/ML 2 ML VIAL ONE (05:01)
[2021-11-07] MEDS ORDERED: SODIUM CHLORIDE 0.9% 1000ML 1,000 ML IV SCH (05:45)
[2021-11-07] MEDS ORDERED: MELATONIN 3 MG TAB PO PRN (06:05)
--- NOTE | 2021-11-07 07:02 | XRay Report ---
XR chest 1V portable CLINICAL HISTORY: Atypical chest pain. COMPARISON STUDY: Chest radiograph April 18, 2021. FINDINGS: Elevation of the right hemidiaphragm is noted. There may be right lower lung volume loss. T here is no pneumothorax or pleural effusion. Right infrahilar opacity is noted. Cardiac size is at up per limits of normal. There is no evidence for pulmonary edema. IMPRESSION: Elevation of the right hemidiaphragm with right infrahilar opacity and possible volume lo ss. This may reflect atelectasis or consolidation. A follow-up chest CT with contrast is recommended to exclude the possibility of an underlying lesion. This finding will be called/faxed to ordering pro vider at time of dictation. ACT 112: Negative or not required by law. Electronically signed by: Jignesh Fontenot M.D. 11/07/2021 7:01 AM
[2021-11-07 07:26] LABS: Chol HDL Ratio 3.1 (0-5)
[2021-11-07 07:29] LABS: Troponin I High Sensitivity 527.4 pg/ml (0-14)
[2021-11-07 07:39] LABS: Estimated Average Glucose 117 mg/dl; Hemoglobin A1C 5.7 % (4.5-5.6)
[2021-11-07] MEDS ORDERED: OPTIRAY 300 100mL IV ONE (08:05)
[2021-11-07] MEDS ORDERED: ACYCLOVIR 200 MG CAP PO SCH (09:00)
--- NOTE | 2021-11-07 10:50 | XCELERA ---
[id number]
--- NOTE | 2021-11-07 10:53 | CT Scan Report ---
CT OF THE CHEST WITH IV CONTRAST CLINICAL HISTORY: Evaluate possible lesion. COMPARISON STUDY: Chest radiographs April 18, 2021 and November 07, 2021. TECHNIQUE: Following IV administration of 94 mL of Optiray, helical axial images of the chest were o btained. Sagittal and coronal reconstructions were viewed as well as maximal intensity projections o n an independent 3-D workstation. Automated exposure control was utilized for the study. A dose low ering technique was utilized adhering to the principles of ALARA. CT DOSE: 275.99 mGy.cm FINDINGS: 1.2 cm left lobe thyroid nodule is noted. There is additional peripherally calcified left lobe thyroid nodule. No enlarged axillary, mediastinal or hilar lymph nodes are present. There is no pericardial effusion. There is no thoracic lymphadenopathy. Size of the heart is at the upper limits of normal. There are trace bilateral pleural effusions. There is no pneumothorax. No suspicious pulmo nary nodules are noted. The possible abnormality on chest radiograph is due to to epicardial fat pad and elevation of the right hemidiaphragm. No consolidation to suggest pneumonia. Central airways are patent. No acute fracture or suspicious lesion within the bony structures is noted. A right hepatic l obe cyst is noted. There is hepatic steatosis. Diverticulosis of the splenic flexure of the colon is noted. IMPRESSION: 1. No suspicious findings within the chest. Possible abnormality on chest radiograph from earlier tod ay was due to prominent epicardial fat pad and mild elevation of the right hemidiaphragm. 2. No consolidation to suggest pneumonia. 3. Trace bilateral pleural effusions. ACT 112: Negative or not required by law. Electronically signed by: Jignesh Fontenot M.D. 11/07/2021 10:51 AM
[2021-11-07 11:39] LABS: Partial Thromboplastin Ratio > 5.1
[2021-11-07 11:50] LABS: Partial Thromboplastin Time > 139.0 Seconds (21.0-31.0)
[2021-11-07] MEDS ORDERED: niCARdipine HCL INJ 2.5 MG/ML 10 ML AMP ONE (11:56)
[2021-11-07] MEDS ORDERED: HEPARIN (PORCINE) 1000 UNIT/ML 10 ML (CATH LAB USE ONLY) ONE (11:56)
[2021-11-07] MEDS ORDERED: fentaNYL citrate 100 MCG/2 ML VIAL ONE (11:56)
[2021-11-07] MEDS ORDERED: NITROGLYCERIN/D5W 100MCG/ML 20ML SYR ONE (11:56)
[2021-11-07] MEDS ORDERED: MIDAZOLAM HCL 1 MG/ML 2ML VIAL ONE (11:56)
--- NOTE | 2021-11-07 12:13 | Pre Anesthesia Assessment ---
Date of Service November 07, 2021 Pre Sedation Assessment Vital Signs Temp Pulse Pulse Resp BP BP Pulse Ox 11/07/21 10:02 86 16 110/78 94 11/07/21 08:53 86 20 119/94 97 11/07/21 08:13 98.6 F 84 20 120/63 96 11/07/21 06:00 68 20 110/67 98 11/07/21 04:39 87 20 138/78 97 11/07/21 04:06 83 20 116/69 98 11/07/21 01:30 74 20 129/77 95 11/07/21 01:38 98 11/07/21 01:00 97.9 F 79 20 146/72 H 98 O2 Del Method 11/07/21 10:02 Room Air 11/07/21 08:53 Room Air 11/07/21 08:13 Room Air 11/07/21 06:00 11/07/21 04:39 Room Air 11/07/21 04:06 Room Air 11/07/21 01:30 Room Air 11/07/21 01:38 Room Air 11/07/21 01:00 Room Air Cardiovascular RRR, no murmur, no edema Respiratory normal respiratory effort, lungs clear to auscultation Pre-Sedation Airway Assessment Smoking Status: Never smoker Hx Sleep Apnea: No Short, Thick Neck: No Thyromental Distance: > or= 3.5 Finger Breadths Oral Cavity: + WNL Mallampati Class: III ASA: ASA3 NPO Status Date of Last Intake of Fluids: 11/06/21 Date of Last Intake of Solid Food: 11/06/21 Procedure Planning Contraindications for Sedation: none Current Medications Reviewed: Yes Notes The planned sedation has been discussed with the patient. Informed Consent was obtained. I have identified the patient, determined the appropriateness of sedation and have assessed the patient immediately prior to the procedure. All medicine(s) and interventions are by my order.
--- NOTE | 2021-11-07 12:32 | Post Anesthesia Assessment ---
Date of Service November 07, 2021 Post Sedation Assessment Vital Signs Temp Pulse Pulse Resp BP BP Pulse Ox 11/07/21 10:02 86 16 110/78 94 11/07/21 08:53 86 20 119/94 97 11/07/21 08:13 98.6 F 84 20 120/63 96 11/07/21 06:00 68 20 110/67 98 11/07/21 04:39 87 20 138/78 97 11/07/21 04:06 83 20 116/69 98 11/07/21 01:30 74 20 129/77 95 11/07/21 01:38 98 11/07/21 01:00 97.9 F 79 20 146/72 H 98 O2 Del Method 11/07/21 10:02 Room Air 11/07/21 08:53 Room Air 11/07/21 08:13 Room Air 11/07/21 06:00 11/07/21 04:39 Room Air 11/07/21 04:06 Room Air 11/07/21 01:30 Room Air 11/07/21 01:38 Room Air 11/07/21 01:00 Room Air Recovery Score Activity: Moves 4 extremities Respiration: Deep Breath/Cough Circulation: +/-20% PreAnes Value Consciousness: Fully Awake Oxygen Saturation: O2 needed for >90% Discharge Sedation Level of Care: Fast Track Phase II Post Sedation Plan On clinical assessment, the patient appears to have tolerated the sedation without complications. Patient is recovering as anticipated. Patient will continue to be monitored by nursing and may be discharged when sedation discharge criteria are met per below protocol. Upon Completions of procedure up to 15 minutes continue every 5 minute vital signs and the P.A.R. score; then discharge to a Phase I or Fast Track to Phase II per the following guidelines: * Discharge Patient to appropriate Phase II area if PAR is 8 or greater or return to pre- procedure baseline. The post - procedure orders will be as directed. * If PAR score is less than 8 or not return to pre-procedure baseline then patient will follow Phase I monitoring till PAR is reached for Phase II. The Phase I may be done in procedure room or may call to secure a Phase I area. * If naloxone or flumazenil are used for reversal, hold in Phase I for continued monitoring from when last reversal dose was given for a minimum of 60 minutes or longer pending the nurse and/or physician discretion of patient condition before discharge to Phase II. Please call the Sedation Physician to re-evaluate and complete post-note for discharge to Phase II area. Do NOT discharge from procedure sedation or Phase 1 until post- sedation evaluation note is complete by procedure /sedation MD Sedation Discharge Instructions to be given to the patient at discharge to home.
--- NOTE | 2021-11-07 12:45 | Cardiac Catheterization ---
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 Cardiac Status Clinical evaluation leading to the procedure CAD Presenation: Non STEMI Anginal Classification: CCS IV Diagnostic Physicians Name: Aman Chaves MD Closure Device Recommendations: Medical Therapy and/or Counseling Cardiac Cath Procedure Full Procedure Date November 07, 2021 Pre-Procedure Diagnosis Pre-Procedure Diagnosis: Non STEMI AUC Score AUC Score: 8 Post-Procedure Diagnosis Post-Procedure Diagnosis: Normal Coronary Arteries and Normal Intracardiac Pressures Procedure(s) Performed Procedure(s) Performed: Coronary Angiography and Left Heart Cath E Commerce Marketing Manager Aman Chaves MD Rv Repairer(s) Soil Sampler Estimated Blood Loss Estimated Blood Loss: 10 Medication(s) Medication(s): Fentanyl, Lidocaine 1%, Nicardipine, Nitroglycerin and Versed Summary of Findings Indication: Suspected ACS Access: 6 Fr right radial artery Catheters: [place] Findings: LM -normal caliber, no significant disease LAD -large caliber, no significant disease, wraps around apex, gives off 2 small to medium diagonals without disease. Circumflex -normal caliber, no STEMI disease, large OM 2 without disease. RCA -dominant, medium caliber, no significant disease. Small distal right PLB with mild disease. LVEDP -15 Arterial Closure: TR band Summary: 1. Essentially normal coronary arteries 2. Normal intracardiac filling pressure Recommendations: No high risk CAD to explain presentation. Symptoms/wall motion abnormality possibly related to myocarditis versus vasospasm. Troponin may also represent demand ischemia from noncardiac process. Can discontinue heparin infusion. Continue metoprolol and ASCVD risk factor modification. Hemodynamics Rest Ao:: 100/63/100 Final Ao: 104/57/78 LV: 97/15 Recommendations Recommendations: Medical Therapy and/or Counseling Specimens Specimens: None Radiation Exposure (mGy) 470 Contrast (mls) 30 Drains Drains: None Anesthesia Moderate Procedural Complication(s) None Disposition PCU I attest to the content of the Intraoperative Record and any orders documented therein. Any exceptions are noted below. [facility] Card Cath Procedure Codes Cardiac Catheterization Procedure 1: Cardiovascular Cath Procedures: 86266 Coronaries and LHC (+/-LV) Moderate Sedation Procedure 1: Sedation/Anesthesia: 38004 Mod Sedation by the same physician;Init15 Min Child Age 5 & Up PG Care Time/CCT Total # of Minutes Spent Total Time Spent with Patient: Total time spent is greater than 50% in coordination of care (as documented) at patient's floor/unit and/or counseling patient:
[2021-11-07] MEDS ORDERED: ondansetron HCL 6 MG in DEXTROSE 5% 50 ML IV PRN (13:45)
--- NOTE | 2021-11-07 14:12 | Communication Note ---
Date of Service: November 07, 2021
--- NOTE | 2021-11-07 14:51 | Electrocardiogram Report ---
Test Reason : Blood Pressure : / mmHG Vent. Rate : 075 BPM Atrial Rate : 075 BPM P-R Int : 178 ms QRS Dur : 082 ms QT Int : 394 ms P-R-T Axes : 073 044 060 degrees QTc Int : 439 ms Normal sinus rhythm Normal ECG When compared with ECG of 18-APR-2021 09:51, No significant change was found Confirmed by Michele Schuster ([id number]) on 11/07/2021 2:51:10 PM Referred By: REFERRED SELF Confirmed By:Michele Schuster
--- NOTE | 2021-11-07 17:11 | Discharge Summary ---
Date of Service November 07, 2021 Admission HPI Per Admitting Provider 65yo female with a history of palpitations, osteoarthritis, and migraine presents with a one-day history of chest pain, nausea, and vomiting. Symptoms began suddenly around 21:45 on 11/06. Patient reports vomiting for about two hours before nausea/vomiting resolved, but patient's chest pain continued. CP is described as central, dull pain/pressure, and does not radiate. Also endorses mild SOB. Denies fever, headache, vision changes, palpitations, abdominal pain, or other symptoms including dysuria, hematochezia, melena, dizziness, numbness, tingling, weakness, or other symptoms. Denies recent illness. No travel within the past two weeks. Upon arrival, vitals were notable for mildly elevated BP (140s/70s), no tachycardia or tachypnea, afebrile, spO2 adequate on room air. EKG: NSR without overt ischemic change. Initial labs were notable for mild leukocytosis (12.6). No anemia, platelets wnl, no electrolyte abnormalities, LFTs wnl, lipase wnl. UA without sign of infection. In the ED, patient was administered an NSS bolus 1L (x1), ASA 324mg, ketorolac 30mg IV (x1), and started on a heparin drip. Surrogate decision-maker in case of an emergency: boyfrienjacqueline Harris (cell: [phone]) Principal Diagnosis Chest pain due to GERD Discharge Exam GENERAL: A&Ox3. NAD. HEENT: PERRL, EOMI. Moist mucous membranes. NECK: No JVD. No lymphadenopathy. CHEST/LUNGS: CTAB A/P. No crackles, wheezes, rales, rhonchi. HEART: RRR. No m/g/r. No carotid bruits. ABDOMEN: NT/ND, soft. BS+ x4 EXTREMITIES: No cyanosis, no clubbing, no edema SKIN: Warm and dry. No rashes or lesions. PSYCHIATRIC: Euthymic affect, no SI, no pressured speech, no hallucinations NEUROLOGIC: No FND. CN II-XII grossly intact. Discharge Data Allergies Allergy/AdvReac Type Severity Reaction Status Date / Time estrogens, conjugated Allergy Intermediate VAG Verified 09/28/21 13:02 BURNING AND RASH, ABD PAIN galcanezumab-gnlm Allergy Rash Unverified 11/07/21 07:00 [From Emgality Pen] rimegepant [From [employer]ur[employer] ODT] Allergy Nausea Unverified 11/07/21 07:00 Consultations 11/07/21 04:14 ED Decision to Admit Stat 11/07/21 07:00 Consult Cardiology Routine Procedures Performed Operation Date: 11/07/21 12:00 Actual Procedures p Cath, Left with Cors and Vent - Trae Chaves MD s Cineradiography w/Routine Exam - Trae Chaves MD Ordered Studies 11/07/21 07:29 CT chest diagnostic w con Routine 11/07/21 09:08 CL Cath Imgs for PACS use only Routine Hospital Course (1) Acute non-ST elevation myocardial infarction (NSTEMI): 65yo female with a history of palpitations, osteoarthritis, migraine presents with a one-day history of chest pain, nausea, and vomiting. Chest pain, nausea, vomiting Vitals on admission notable for mildly elevated BP (140s/70s), no tachycardia or tachypnea, afebrile, spO2 adequate on room air Labs on admission notable for mild leukocytosis (12.6). No anemia, platelets wnl, no electrolyte abnormalities, LFTs wnl, lipase wnl; UA without sign of infection EKG: NSR without overt ischemic change Initial troponin mildly elevated and repeat had trended up somewhat downtrended at time of discharge Symptoms suspected secondary to NSTEMI initially In ED, patient started on heparin gtt, administered ASA 324mg, and given NSS 1L bolus (x1), antiemetics, and ketorolac 30mg IV (x1) Cardiology consulted patient was taken to catheterization, which showed essentially normal coronary arteries except for small distal right PLB with mild disease; recommendation for daily baby aspirin Due to no significant coronary artery disease, symptoms thought to be more related to GI reflux/inflammation as such, will be discharged on pantoprazole 40 mg twice daily, famotidine 20 mg twice daily, Maalox as needed for next 2 weeks Recommend follow-up with PCP for discussion and continued care, as well as potential discontinuation of GERD medications HSV: continue home acyclovir Migraine: continue home meds Dispo: Home self care (2) Nausea: (3) Recurrent herpes simplex: Total Time Total Time Spent Total Time Spent (In Minutes): <30 Discharge Plan Discharge Items Patient Disposition: Home - Self-Care Reason For Visit: NSTEMI Discharge Diagnosis: Chest pain secondary to GERD Activity: Per Instructions section Non-emergency contact: Primary Care Provider Call non-emergency contact if: you have any medication questions and your symptoms worsen Follow-up/Referrals: Paula Kc MD [Primary Care Provider] - 11/17/21 11:30 am Diet: Heart Healthy Addtl Attending Provider Instructions: You were admitted to [facility] due to chest pain. This was initially concerning for possible cardiac involvement, especially with a mild elevation in your troponin, which is a marker that can be elevated due to cardiac damage. While your EKG was normal your history was concerning and Cardiology was consulted. You were taken to catheterization, which fortunately showed no significant blockage of your coronary arteries. While there was a very mild blockage in a small artery of your heart, this is unlikely to have caused your symptoms. However, to be safe it is recommended that you start a baby aspirin daily. We believe that your chest symptoms were more related to gastrointestinal causes such as heartburn, especially in the setting of your nausea and vomiting for several days preceding the episode. It is likely that your troponin elevation was due to something called "demand ischemia", which is when stress to your body can in turn stress your heart enough that it suffers some minimal, non-lasting damage. Due to the above, we will start you on several medications to help with reflux/heartburn and possible gastric inflammation. Over time it is likely that you may be able to taper off some or all of these medications. For this we recommend that you follow up with your PCP to discuss your care going forward. Please continue to take all your other medications as previously prescribed. If you develop any worsening symptoms or new & concerning symptoms, please return to the hospital for reevaluation. Pending Studies at Discharge: No Stand-Alone Forms: [employer] Smoking Cessation Medications and DC Order Prescriptions: New pantoprazole 40 mg tablet,delayed release (DR/EC) 40 mg PO BID 14 Days Qty: 28 0RF famotidine 20 mg tablet 20 mg PO BID 14 Days Qty: 28 0RF alum-mag hydroxide-simeth [Maalox Maximum Strength] 400-400-40 mg/5 mL suspension 5 ml PO Q6H PRN (Reason: indigestion) Qty: 3000 0RF aspirin 81 mg tablet,delayed release (DR/EC) 81 mg PO DAILY 30 Days Qty: 30 0RF Continued sumatriptan succinate 50 mg tablet See Rx Instructions PO .COMPLEX Qty: 90 0RF Dose Instruction: take 1 tab at onset of headache; if no relief may repeat 1 tab in 2hr; max = 4 tabs/day (24hr) PO Rx Instructions: take 1 tab at onset of headache; if no relief may repeat 1 tab in 2hr; max = 4 tabs/day (24hr) PO acyclovir 200 mg capsule 200 mg PO .once daily Qty: 90 1RF mometasone 50 mcg/actuation spray,non-aerosol 1 spray intranasal BID PRN (Reason: allergy symptoms) Rx Instructions: administer into each nostril metoprolol succinate 25 mg tablet extended release 24 hr See Rx Instructions .ROUTE .COMPLEX Qty: 45 3RF Rx Instructions: Take 1/2 tablet by mouth daily in the evening. zolpidem [Ambien] 5 mg tablet See Rx Instructions .ROUTE .COMPLEX Qty: 45 3RF Rx Instructions: Take 1 tablet by mouth every day at bedtime as needed for sleep (may repeat dose x 1 as needed) Discharge Orders: Discharge Order (Routine); Ordered 11/07/21 Ordered By: Breezy CastanonJohn Admission Data Admit Date/Time: 11/07/21 05:14 Attending Provider: Baldemar Carranza Admit Provider: Alexandro Drummond Primary Care Provider: Paula Kc Other Providers: Jonathan Davey ; Michele Schuster Other Interventions: Discharge Summary Assessment (RN) Last Done: 11/07/21 18:08 Supervising Physician Co-Signing Physician Notes I personally examined the patient and verified all walsh points of history and exam, discussed case, and agree with decision making with Dr Castanon. Feeling better. Eating well. Cath noted, cardiology also did note a little bit of very small vessel diseaserecommended aspirin. No contraindications to discharge. Vitals noted, in general she is awake and alert pleasant no distress. HEENT normocephalic atraumatic mucous membranes moist. Breathing unlabored no accessory muscle use good effort. Skin shows no rashes no pallor or icterus. Neuro without focal deficits. Chest painalmost certainly upper GI given that it happened after rather vigorous vomiting, and cath was clean for culprit lesions. Did a very small sized vessel diseaseaspirin. Safe/stable for home. Troponin predominantly appears to been spurious. Acid suppression for short time to assist with GI distress symptoms, otherwise safe/stable for home. otherwise as above Resident Activity Tracking Resident Involvement: Resident Care Provided Care Provided: Adult [facility] Medicine
--- NOTE | 2021-11-07 19:37 | Billing Data ---
Date of Service November 07, 2021 Coding Level of Care Code D/C DAY MANAGEMENT <30 MINS
[2021-11-07] MEDS ORDERED: METOPROLOL SUCC 25MG EXT REL TAB PO SCH (21:00)
--- NOTE | 2021-11-08 01:00 | Billing Data ---
Date of Service November 08, 2021 Coding Level of Care Code 72081 Initial Inpt Care Lvl 2
--- NOTE | 2021-11-09 11:31 | Cardiology Consultation ---
Date of Consultation November 09, 2021 Assessment & Plan (1) Acute non-ST elevation myocardial infarction (NSTEMI): 2. Preserved LV function with new septal wall motion abnormality 3. Palpitations 4. GERD Patient with acute onset vomiting followed by new central chest pain. Troponin elevated/uptrending and new wall motion abnormality on Echo. Elevated suspicion for ACS and recommend additional risk stratification with cardiac catheterization. Discussed risks/benefits of procedure with patient and she is willing to proceed. Plan to perform around lunch time unless recurrent symptoms. Keep NPO. Heparin on until called for procedure. History of Present Illness Attending Physician: Baldemar Carranza DO History of Present Illness Ms. Houston is a very pleasant 65-year-old woman seen today for suspected ACS. Patient followed by cardiology for palpitations, carotid plaque, prior atypical chest pain. Last seen by Gil Yeager 05/2021, me 02/2018. Holter/cardiac event monitor 2018 asymptomatic rare PACs/PVCs. Echo 02/2018 LVEF 55%, mild LVH, DD2, no valve pathology. Recurrent palpitations recently. Event monitor 05/2021 without significant ectopy, events correlated with sinus tachycardia. Other medical history is remarkable for GERD, recurrent migraines, low back pain and osteoarthritis. Admitted overnight with acute onset nausea/vomiting for about 2 hours. After vomiting developed central, non-radiating chest pressure. No other associated symptoms. ECG sinus without ST changes. HsTrop 130--> 520 this morning. No recurrent chest pain. Tele unremarkable. Repeat echo shows preserved LV function with new anteroseptal/septal hypokinesis. Allergies Allergy/AdvReac Type Severity Reaction Status Date / Time estrogens, conjugated Allergy Intermediate VAG Verified 09/28/21 13:02 BURNING AND RASH, ABD PAIN galcanezumab-gnlm Allergy Rash Unverified 11/07/21 07:00 [From Emgality Pen] rimegepant [From [facility] ODT] Allergy Nausea Unverified 11/07/21 07:00 Home Medications Medication Instructions Recorded Confirmed Type mometasone 50 mcg/actuation nasal 1 spray intranasal BID PRN allergy 05/06/20 11/07/21 History spray symptoms metoprolol succinate 25 mg See Rx Instructions .Route 06/12/21 11/07/21 Rx tablet,extended release 24 hr .COMPLEX #45 tabs zolpidem 5 mg tablet (Ambien) See Rx Instructions .Route 06/12/21 11/07/21 Rx .COMPLEX #45 tabs acyclovir 200 mg capsule 200 mg PO .once daily #90 caps 09/27/21 11/07/21 Rx aluminum-mag hydroxide-simethicone 5 ml PO Q6H PRN indigestion #3,000 11/07/21 Rx 400 mg-400 mg-40 mg/5 mL oral susp mL (Maalox Maximum Strength) aspirin 81 mg tablet,delayed 81 mg PO DAILY 30 days #30 tabs 11/07/21 Rx release famotidine 20 mg tablet 20 mg PO BID 2 weeks #28 tabs 11/07/21 Rx pantoprazole 40 mg tablet,delayed 40 mg PO BID 14 days #28 tabs 11/07/21 Rx release sumatriptan succinate 50 mg tablet See Rx Instructions PO .COMPLEX 11/09/21 Rx #90 tabs Patient History Medical History Hx of ectopic Migraine headache Recurrent herpes simplex Tachycardia Surgical History Hx of section Hx of shoulder surgery Status post ectopic Family History Father Non-Hodgkin lymphoma Cancer Non-hodgkin's lymphoma Grandfather (Paternal) Lung cancer Aunt Brain cancer Cancer brain Denies family history of Ovarian cancer Prostate cancer Myocardial infarction Breast cancer Colorectal cancer Social History Smoking Status: Never smoker Hx Alcohol Use: No Hx Substance Use: No Preferred Language: Moldovan Communication Ability: Effective Airport Traffic Controller Required: No Beliefs That Will Affect Care: None marital status: Single Current Living Situation: Other Current Living Situation Comment: lives with boyfriend current occupational status: employed Feels Safe at Home: Yes caffeine: Yes Dental Care, Regularly: Yes Physical Activity Frequency: 3-4 Times per Week Seatbelt Use: always Sunscreen Use: Yes Assistive Devices: Hearing Aid - Bilateral Review of Systems Review of Systems: All systems reviewed & are unremarkable except as noted in HPI & below Physical Exam Physical Exam: General: Comfortable HEENT: Sclerae anicteric, Mask in place Lungs: Clear to auscultation bilaterally, no crackles or wheezes Cardiac: Regular rate and rhythm, no murmurs. Vascular: 2+ radial, DP pulses. No bruits Abdomen: Soft, nontender Extremities: Well perfused, no peripheral edema Neuro: Nonfocal Psych: Alert orient x3, normal affect and mood PG Care Time/CCT Total # of Minutes Spent Total Time Spent with Patient: Total time spent is greater than 50% in coordination of care (as documented) at patient's floor/unit and/or counseling patient: Coding Level of Care Code 39053 Office/OBS Consult Lvl 4 Diagnoses Acute non-ST elevation myocardial infarction (NSTEMI) I21.4
== END 2021-11-07 19:40 | disposition home or self-care (01) ==
LOC: ED 01:00 → SUATTDRO 05:14 → EDINP 05:14 → INTOOBSV 05:14 → 1E 06:13

== ENCOUNTER 2024-06-09 12:07 | Observation (INO) ==
[2024-06-09 13:24] LABS: Basophils % (auto) 1.1 %; Eosinophils # (auto) 0.62 K/uL (0.00-0.50); Eosinophils % (auto) 7.1 %; Hematocrit (blood only) 36.5 % (37.0-47.0); Hemoglobin 11.8 g/dl (12.0-16.0); Immature Granulocytes # (auto) 0.02 K/uL (0.01-0.20); Immature Granulocytes % (auto) 0.2 %; Lymphocytes # (auto) 2.45 K/uL (1.20-3.40); Lymphocytes % (auto) 28.1 %; Mean Corpuscular Hemoglobin 26.9 pg (25.0-34.0); Mean Corpuscular Hgb Conc 32.3 g/dL (32.0-36.0); Mean Corpuscular Volume 83.1 fL (80.0-100.0); Mean Platelet Volume 10.8 fL (9.4-12.4); Monocytes # (auto) 0.83 K/uL (0.11-0.59); Monocytes % (auto) 9.5 %; Platelet Count 348 K/uL (130-400); RDW Coefficient of Variation 13.2 % (11.5-14.5); Red Blood Count 4.39 M/uL (4.20-5.40); White Blood Count 8.72 K/ul (4.8-10.8)
[2024-06-09 13:33] LABS: Albumin Globulin Ratio 1.6 (0.9-2); Albumin Level 4.4 gm/dl (3.4-5.0); BUN Creatinine Ratio 13.2 (10-20); Bilirubin,Total 0.3 mg/dl (0.2-1.0); Calcium 9.1 mg/dl (8.6-10.3); Creatinine Clr Calc Pharmacy 49.3 ml/min; Globulin 2.7 gm/dl (2.5-4.0); Potassium 4.2 mmol/L (3.5-5.1); Total Protein 7.1 gm/dl (6.0-8.3)
--- NOTE | 2024-06-09 13:55 | Emergency Department Note ---
History of Present Illness General Chief complaint: Abdominal Pain Stated complaint: ABD PAIN, GASTRO INSISTIED SHE COME TO HOSPITAL Time Seen by Provider: 06/09/24 13:53 History of Present Illness This is a 68-year-old female that presents to the emergency department via private vehicle with complaints of "abdominal pain". The patient notes that she was recommended to present here by her shoeshiner. Patient notes that she has had abdominal pain and nausea since Saturday. No trauma. No injury. Last bowel movement was yesterday. Reportedly she notes possible SBO identified on CT at [facility] Saturday. No fevers or respiratory symptoms. Patient notes that she was at her PCP office yesterday and subsequently GI specialist office today and was noted to be hypotensive and therefore was referred over. Per review of the EMR patient had a systolic blood pressure 88/58 at 11:22 AM and then 93/58 at 11:25 AM. Per review of the EMR there is an uploaded CT scan from 06/06/2024 which does show constipation. There is no comment of bowel obstruction on this CT scan of the abdomen/pelvis with IV contrast. Home Medications Medication Instructions Recorded Confirmed Type cholecalciferol (vitamin D3) 25 25 mcg PO QPM 09/07/22 06/09/24 History mcg (1,000 unit) capsule magnesium oxide 400 mg (241.3 mg 400 mg PO QPM 09/07/22 06/09/24 History magnesium) tablet aspirin 81 mg tablet,delayed 81 mg PO HS 12/20/22 06/09/24 History release riboflavin (vitamin B2) 100 mg 200 mg PO QPM 12/20/22 06/09/24 History tablet melatonin 3 mg tablet 3 mg PO HS 12/24/22 06/09/24 History acyclovir 200 mg capsule 200 mg PO QPM #90 caps 06/11/23 06/09/24 Rx metoprolol succinate 25 mg 12.5 mg (1/2 x 25 mg) PO QPM #90 06/11/23 06/09/24 Rx tablet,extended release 24 hr tabs venlafaxine 25 mg tablet 25 mg PO BID #180 tabs 06/11/23 06/09/24 Rx odqvpiswej-fnzpvcjkklnye-cikrrkmr 1 cap PO Q8H PRN pain #30 caps 08/01/23 06/09/24 Rx 50 mg-300 mg-40 mg capsule (Fioricet) ketoconazole 2 % shampoo 1 applic topical .COMPLEX #120 mL 11/05/23 06/09/24 Rx CBD 2 tab PO HS 11/11/23 06/09/24 History mecobalamin (vitamin B12) 500 mcg 500 mcg PO DAILY 11/11/23 06/09/24 History chewable tablet triamcinolone acetonide 55 mcg 2 spray intranasal DAILY PRN Nasal 11/11/23 06/09/24 History nasal spray aerosol (Nasacort) Congestion ondansetron 4 mg disintegrating 4 mg PO Q8H PRN nausea and 06/08/24 06/09/24 Rx tablet vomiting #20 tabs sucralfate 1 gram tablet 1 g PO ACHS #136 tabs 06/08/24 06/09/24 Rx famotidine 20 mg tablet 40 mg PO BID 06/09/24 06/09/24 History omeprazole 20 mg capsule,delayed 40 mg PO HS 06/09/24 06/09/24 History release zolpidem 5 mg tablet (Ambien) 5 mg PO HS PRN Sleep 06/09/24 06/09/24 History Allergies Allergy/AdvReac Type Severity Reaction Status Date / Time rimegepant [From [facility] ODT] Allergy Severe Nausea, Verified 06/09/24 17:26 migraine estrogens, conjugated Allergy Intermediate VAG Verified 06/09/24 17:26 BURNING AND RASH [id number]-vfrm Allergy Intermediate rash and Verified 06/09/24 17:26 [From Ajovy Syringe] not feeling well sumatriptan Allergy Intermediate Chest Pain Verified 06/09/24 17:26 galcanezumab-gnlm Allergy Mild Rash Verified 06/09/24 17:26 [From Emgality Pen] nickel Allergy Mild redness, Verified 06/09/24 17:26 swelling, itching with E[place] lamotrigine [From Lamictal] AdvReac Severe hypotension, Verified 06/09/24 17:26 palpitations birch trees Allergy Unknown Unknown Uncoded 06/09/24 17:26 sycamore tree Allergy Unknown Unknown Uncoded 06/09/24 17:26 Past Med/Surg History Problem List (Updated 06/09/24 @ 20:36 by Cong Brennan PA-C) Decreased oral intake (Acute) Nausea (Acute) Acute upper abdominal pain (Acute) Abdominal pain Epigastric abdominal pain (Acute) Ruptured Bakers cyst Cellulitis of right lower extremity Arthralgia of multiple joints Contact dermatitis Pruritus Chronic rhinitis Angioedema Liver cyst Calcific tendinitis of right shoulder Encounter for pre-operative examination PVC (premature ventricular contraction) PAC (premature atrial contraction) History of kidney stones last episode 03/2022 History of diverticulitis 2021 Migraine headache (Chronic) Axillary lump Hearing loss Decreased rectal sphincter tone Encounter for preventive health examination Routine health maintenance Palpitations Non-healing skin lesion Osteoarthritis of right patellofemoral joint Sinus tachycardia Carpal tunnel syndrome Trochanteric bursitis, left hip Insomnia Carotid artery plaque Locking of right knee Iliotibial band syndrome of right side Asymmetrical hearing loss Thyroid nodule greater than or equal to 1 cm in diameter incidentally noted on imaging study Encounter for examination following treatment at hospital Mild CAD Abnormal echocardiogram Atopic dermatitis Diverticulosis Celiac artery compression syndrome Insomnia Paresthesia of both lower extremities Bilateral ankle pain Knee pain, bilateral Lower back pain Heartburn Metabolic syndrome Peripheral neuropathic pain b/l LEs Medication adverse effect Headache, chronic migraine without aura History of colon polyps BENIGN Fatty liver monitored by PCP Medical History Hiatal hernia GERD (gastroesophageal reflux disease) controlled, stable per pt History of non-ST elevation myocardial infarction (NSTEMI) 10/2021-no stents TMJ (temporomandibular joint disorder) denies clicking or locking CAD (coronary artery disease) nonobstructive, follows with Dr. 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 HX POLYP AND REMOVED History of colonoscopy History of plastic surgery X3, facial, liposuctions History of cardiac cath [facility] NOV 07 2021...VERY SMALL MILD BLOCKAGE PER PT , NO STENT(S) Status post ectopic Laparoscopy with excision of ectopic Hx of shoulder surgery left, rotator cuff repair 2012 Hx of section Family History Father Non-Hodgkin lymphoma Heart disease Cancer Non-hodgkin's lymphoma Grandfather (Paternal) Lung cancer Cancer Aunt Brain cancer Cancer brain Mother Vascular dementia Grandmother (Maternal) Heart disease Grandfather (Maternal) Heart disease Grandmother (Paternal) Cancer Other No family history of adverse response to anesthesia Denies family history of Ovarian cancer Prostate cancer Myocardial infarction Breast cancer Colorectal cancer Social History Smoking Status: Never smoker Second Hand Exposure: Yes (As a child. 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, [employer] How many Children do You have: 1 Feels Safe at Home: Yes Childhood Exposure to Second-Hand Smoke: Yes Diet: regular caffeine: Yes during the past year weight has: remained stable Dental Care, Regularly: Yes Physical Activity Frequency: Does not Exercise Seatbelt Use: always Sunscreen Use: Yes Do you think of yourself as: straight/heterosexual Sexual Activity: has been sexually active within the last 12 months Gender Identity: Female Assistive Devices: Glasses and Hearing Aid - Bilateral Review of Systems A total of 10 systems reviewed and were otherwise negative Physical Exam Vital Signs Vital Signs - 24 hr 06/09/24 12:20 06/09/24 13:50 06/09/24 14:49 Temperature 36.3 C L Temperature Source Temporal Artery Scan Pulse Rate 60 58 L Pulse Rate [Left Finger] 77 Pulse Rhythm Regular Pulse Strength Normal Respiratory Rate 20 18 Respiratory Effort / Characteristics Respiratory Depth Normal Respiratory Pattern Blood Pressure 119/71 Blood Pressure [Left Arm] 115/76 Blood Pressure Mean 87 Blood Pressure Mean [Left Arm] 89 Pulse Oximetry 95 98 Oxygen Delivery Method Room Air Sepsis Recent Fever Within 48 Hours No Sepsis New/Unexplained Change in Mental Status N/A Sepsis Action Taken by Nursing No Action Required 06/09/24 16:40 06/09/24 17:32 06/09/24 19:00 Temperature Temperature Source Pulse Rate Pulse Rate [Left Finger] 72 61 71 Pulse Rhythm Pulse Strength Respiratory Rate 20 20 14 Respiratory Effort / Characteristics Non-Labored Spontaneous Respiratory Depth Normal Respiratory Pattern Regular Blood Pressure Blood Pressure [Left Arm] 133/72 125/61 135/66 Blood Pressure Mean Blood Pressure Mean [Left Arm] 92 82 89 Pulse Oximetry 98 98 94 Oxygen Delivery Method Room Air Room Air Sepsis Recent Fever Within 48 Hours Sepsis New/Unexplained Change in Mental Status Sepsis Action Taken by Nursing 06/09/24 20:00 Temperature Temperature Source Pulse Rate Pulse Rate [Left Finger] 57 L Pulse Rhythm Pulse Strength Respiratory Rate 14 Respiratory Effort / Characteristics Non-Labored Spontaneous Respiratory Depth Normal Respiratory Pattern Regular Blood Pressure Blood Pressure [Left Arm] 112/45 L Blood Pressure Mean Blood Pressure Mean [Left Arm] 67 Pulse Oximetry 92 Oxygen Delivery Method Room Air Sepsis Recent Fever Within 48 Hours Sepsis New/Unexplained Change in Mental Status Sepsis Action Taken by Nursing VITAL SIGNS - Vital signs and nursing notes were reviewed. Stable and afebrile. GENERAL -68-year-old female appearing her stated age who is in no acute distress. Communicates well with provider and answers questions appropriately. SKIN - Without rashes. No meningeal or petechial rash. HEAD - NC/AT. EYES - PERRL with EOMI bilaterally. Sclera anicteric. EARS - No deformities of external structures noted on gross examination bilaterally. NOSE - Midline and without cyanosis. No epistaxis or purulent drainage noted. MOUTH/OROPHARYNX - Without perioral cyanosis. NECK - Neck with FROM. No nuchal rigidity. LUNGS - Chest wall symmetric without accessory muscle use, intercostals retractions, or central cyanosis. Normal vesicular breath sounds CTA B/L. No wheezes, rales, or rhonchi appreciated. CARDIAC - RRR ABDOMEN - Abdominal contour normal without pulsations or visible masses. BS normoactive all four quadrants. No tenderness, palpable masses, hepatosplenomegaly, or ascites noted. EXTREMITIES - No clubbing or peripheral cyanosis. +5/5 strength noted in UE/LE bilaterally. NEUROLOGIC - Cranial nerves II through XII grossly intact. PSYCH -alert, oriented and pleasant on exam Course Administered Medications Discontinued Medications Acetaminophen (Acetaminophen 325 Mg Tab) 650 mg PO NOW STA Stop: 06/09/24 14:27 Last Admin: 06/09/24 15:20 Dose: 650 mg Documented By: QUILEUTE Al Hydrox/Mg Hydrox/Simethicone (Aluminum/Magnesium Susp 30 Ml Udc) 15 ml PO NOW STA Stop: 06/09/24 18:28 Last Admin: 06/09/24 18:32 Dose: 15 ml Documented By: QUILEUTE Sodium Chloride (Nss) 1,000 mls @ 999 mls/hr IV .Q1H1M ONE Stop: 06/09/24 15:19 Last Infusion: 06/09/24 15:38 Dose: Infused Documented By: Admin: 06/09/24 14:37 Dose: 999 mls/hr Documented By: QUILEUTE Famotidine (Pepcid 20mg Iv Push) 20 mg in 5 mls @ 2.5 mls/min IV NOW STA Stop: 06/09/24 18:28 Last Admin: 06/09/24 18:34 Dose: 2.5 mls/min Documented By: QUILEUTE Ioversol (Optiray 320 100ml) 93 ml IV ONCE ONE Stop: 06/09/24 15:46 Last Admin: 06/09/24 15:45 Dose: 93 ml Documented By: ALYSIA Ondansetron HCl (Ondansetron Inj 2 Mg/Ml 2 Ml Vial) 4 mg IV NOW STA Stop: 06/09/24 14:27 Last Admin: 06/09/24 14:37 Dose: 4 mg Documented By: QUILEUTE Sucralfate (Sucralfate 1 Gm/10 Ml Udc) 1 gm PO NOW STA Stop: 06/09/24 18:28 Last Admin: 06/09/24 18:32 Dose: 1 gm Documented By: QUILEUTE Medical Decision Making Laboratory Data 06/09/24 12:29 06/09/24 12:29 Lab Results 06/09/24 06/09/24 06/09/24 Range/Units 12:29 14:00 15:22 WBC 8.72 (4.8-10.8) K/ul RBC 4.39 (4.20-5.40) M/uL Hgb 11.8 L (12.0-16.0) g/dl Hct 36.5 L (37.0-47.0) % MCV 83.1 (80.0-100.0) fL MCH 26.9 (25.0-34.0) pg MCHC 32.3 (32.0-36.0) g/dL RDW Std Deviation 40.0 (36.4-46.3) fL RDW Coeff of Timo 13.2 (11.5-14.5) % Plt Count 348 (130-400) K/uL MPV 10.8 (9.4-12.4) fL Immature Gran % (Auto) 0.2 % Neut % (Auto) 54.0 % Lymph % (Auto) 28.1 % [place] % (Auto) 9.5 % Eos % (Auto) 7.1 % Baso % (Auto) 1.1 % Neut # (Auto) 4.70 (1.40-6.50) K/uL Lymph # (Auto) 2.45 (1.20-3.40) K/uL [place] # (Auto) 0.83 H (0.11-0.59) K/uL Eos # (Auto) 0.62 H (0.00-0.50) K/uL Baso # (Auto) 0.10 (0.00-0.20) K/uL Immature Gran # (Auto) 0.02 (0.01-0.20) K/uL Sodium 133 L (136-145) mmol/L Potassium 4.2 (3.5-5.1) mmol/L Chloride 100 (98-107) mmol/L Carbon Dioxide 29 (21-32) mmol/L Anion Gap 4 (3-11) BUN 14 (6-23) mg/dl Creatinine 1.06 (0.6-1.2) mg/dl Est Cr Clr Drug Dosing 49.3 ml/min eGFR 56.87 BUN/Creatinine Ratio 13.2 (10-20) Glucose 88 (70-99(Fasting)) mg/dl Calcium 9.1 (8.6-10.3) mg/dl Total Bilirubin 0.3 (0.2-1.0) mg/dl AST 17 (13-39) U/L ALT 15 (7-52) U/L Alkaline Phosphatase 86 (34-104) U/L Troponin I High Sens 2.5 (0-14) pg/ml Total Protein 7.1 (6.0-8.3) gm/dl Albumin 4.4 (3.4-5.0) gm/dl Globulin 2.7 (2.5-4.0) gm/dl Albumin/Globulin Ratio 1.6 (0.9-2) Lipase 33 (11-82) U/L Urine Color Yellow Urine Appearance Clear (Clear) Urine pH 6.0 (4.5-7.5) Ur Specific [place] 1.018 (1.000-1.030) Urine Protein Negative (Negative) Urine Glucose (UA) Negative (Negative) Urine Ketones Negative (Negative) Urine Blood Negative (Negative) Urine Nitrite Negative (Negative) Urine Bilirubin Negative (Negative) Urine Urobilinogen Negative (Negative) Ur Leukocyte Esterase 1+ H (Negative) Urine WBC (Auto) 0-5 (0-5) /hpf Urine RBC (Auto) 0-2 (0-2) /hpf U Hyaline Cast (Auto) 0-2 (0-2) /lpf U Epithel Cells (Auto) 0-2 (0-2) /hpf Urine Bacteria (Auto) None Seen (None Seen) Adenovirus (PCR) Not Detected (NotDetected) B. pertussis DNA (PCR) Not Detected (NotDetected) B.parapertussis DNA PCR Not Detected (NotDetected) C. pneumoniae DNA (PCR) Not Detected (NotDetected) Coronavirus OC43 (PCR) Not Detected (NotDetected) Coronavirus HKU1 (PCR) Not Detected (NotDetected) Coronavirus 229E (PCR) Not Detected (NotDetected) SARS-CoV-2 (PCR) Not Detected (NotDetected) Coronavirus NL63 (PCR) Not Detected (NotDetected) Human Metapneumovir PCR Not Detected (NotDetected) Influenza Type A (PCR) Not Detected (NotDetected) Influenza Type B (PCR) Not Detected (NotDetected) M. pneumoniae (PCR) Not Detected (NotDetected) Parainfluenza 1 (PCR) Not Detected (NotDetected) Parainfluenza 2 (PCR) Not Detected (NotDetected) Parainfluenza 3 (PCR) Not Detected (NotDetected) Parainfluenza 4 (PCR) Not Detected (NotDetected) RSV (PCR) Not Detected (NotDetected) Entero/Rhino (PCR) Not Detected (NotDetected) Imaging Data Radiologist's Impression: Abdomen/Pelvis CT 06/09/24 14:[address] WITH IV CONTRAST CT DOSE: 1134.83 mGy.cm HISTORY: Abd pain, nausea, hypotension (prehospital) TECHNIQUE: Multiaxial CT images of the abdomen and pelvis were performed following the IV administration of 90 cc of Optiray, A dose lowering technique was utilized adhering to the principles of ALARA. COMPARISON STUDY: 05/29/2019 FINDINGS: ABDOMEN: Small cyst lateral right hepatic lobe is stable. Otherwise the liver, gallbladder, spleen, pancreas, and adrenal glands are unremarkable. Kidneys show no hydronephrosis or calculi. There are mild atherosclerotic calcifications. No abdominal aortic aneurysm. Pelvis: Uterus and adnexa are grossly unremarkable. Urinary bladder is decompressed. There is moderate retained stool. There is mild colonic diverticulosis. No acute diverticulitis. No bowel inflammation or obstruction. Normal appendix. No free fluid, free air, or abscess. No enlarged adenopathy. Osseous structures: No acute osseous findings. IMPRESSION: No acute findings. ACT 112: Negative or not required by law. The above report was generated using voice recognition software. It may contain grammatical, syntax or spelling errors. Electronically signed by: Benoit Worrell M.D. 06/09/2024 4:00 PM Chest X-Ray 06/09/24 14:26 XR chest 1V portable CLINICAL HISTORY: Upper abd pain COMPARISON STUDY: 11/14/2021 FINDINGS: Heart size and pulmonary vasculature are normal. No effusion, consolidation, or pneumothorax. IMPRESSION: No acute findings. ACT 112: Negative or not required by law. Electronically signed by: Benoit Worrell M.D. 06/09/2024 2:48 PM Gallbladder Ultrasound 06/09/24 16:09 Clinical history: Right upper quadrant pain Technique: Sonography was performed of the right upper quadrant of the abdomen Comparison is made to the liver ultrasound dated 05/29/2023 Findings: There is fatty infiltration of the liver. There is an unchanged 1.7 cm simple appearing cyst in the right hepatic lobe anteriorly. No definite liver mass is seen. There is normal directional flow in the main portal vein Multiple gallstones are present. The gallbladder wall is of normal thickness. No definite sonographic Mercedes sign was detected. There is no intrahepatic or extrahepatic bile duct dilatation. The common bile duct measures 5 mm The right kidney demonstrates normal size and echogenicity. There is no hydronephrosis. No definite renal calculus or mass is seen The visualized pancreas, aorta, and IVC appear unremarkable. No ascites is seen Impression: 1. Cholelithiasis without evidence of acute cholecystitis 2. Small hepatic cyst, unchanged 3. Unchanged fatty infiltration of the liver Electronically signed by George Garcia 06-09-2024 5:34 PM MDM Narrative Patient was seen and evaluated as above in room A12b. Review was performed of triage nursing notes and vital signs. I did review pertinent previous visits and patient history. After obtaining a thorough history and physical examination the above work up was performed. Patient presents to us today for evaluation of upper abdominal pain, nausea. Pain is worse with eating/drinking. EKG per my interpretation reveals normal sinus rhythm at a rate of 63 bpm. QTc 423. QRS 84. No ST elevation on this rhythm tracing. Options of care were discussed with the patient. IV access was established. Labs were drawn. There is no leukocytosis. There is mild anemia noted with hemoglobin at 11.8. Mild hyponatremia 133. No evidence of kidney or liver failure. Troponin x 1 within normal range and noting duration of symptoms is not indicative of ACS. Lipase normal. Urinalysis reveals 1+ leukocytes without urinary symptoms. BioFire panel was negative. Chest x-ray per my interpretation was negative for acute process. Radiology report is as above also noting no acute findings. CT scan of the abdomen/pelvis was reconsidered noting the patient's ongoing symptoms and hypotension earlier today. CT scan results as above. This was essentially negative. I did elect to proceed then with a gallbladder ultrasound which did show cholelithiasis without evidence of cholecystitis. Patient while here in the ED was medicated with IV fluids for hydration, IV Zofran for nausea, oral acetaminophen for pain, sucralfate, Pepcid and GI cocktail. Noting patient's ongoing symptoms I do believe that further evaluation and management the inpatient setting is warranted. I discussed the case with GI, Dr. Means at 6:35 PM. Clear liquids at this time and n.p.o. after midnight. GI will come evaluate the patient. Consultation order placed. I discussed the case with the hospitalist service. Please refer to further documentation regarding her stay. GCS: 15 In the evaluation and treatment of this patient the following differential diagnoses were entertained: Gastritis, gastric ulcer, cholecystitis, pancreatitis, ACS, dissection, PE, among others. Impression & Plan Acute upper abdominal pain, Nausea, Decreased oral intake Discharge Plan Visit Data Chief Complaint: Abdominal Pain Stated Complaint: ABD PAIN, GASTRO INSISTIED SHE COME TO HOSPITAL ED Provider: Chip Duval ED Midlevel Provider: Cong Brennan Discharge Problem: Acute upper abdominal pain, Nausea, Decreased oral intake Patient Disposition: Admitted As Inpatient Condition: Good Discharge Instructions Interventions: ED Discharge Assessment Last Done: 06/09/24 20:16 Prescriptions Prescriptions: No Action cholecalciferol (vitamin D3) 25 mcg (1,000 unit) capsule 25 mcg PO QPM magnesium oxide 400 mg (241.3 mg magnesium) tablet 400 mg PO QPM metoprolol succinate 25 mg tablet extended release 24 hr 12.5 mg PO QPM Qty: 90 3RF Rx Instructions: Take 1/2 tablet by mouth daily in the evening. venlafaxine 25 mg tablet 25 mg PO BID Qty: 180 3RF acyclovir 200 mg capsule 200 mg PO QPM Qty: 90 3RF vhrdqxuqja-kcxmqyaxcadho-hrid [Fioricet] 50-300-40 mg capsule 1 cap PO Q8H PRN (Reason: pain) Qty: 30 0RF sucralfate 1 gram tablet 1 g PO ACHS Qty: 136 0RF aspirin 81 mg tablet,delayed release (DR/EC) 81 mg PO HS riboflavin (vitamin B2) 100 mg tablet 200 mg PO QPM ketoconazole 2 % shampoo 1 applic topical .COMPLEX Qty: 120 4RF Rx Instructions: Wash scalp 2 times weekly. Let sit for 3-5 minutes prior to rinsing.; ondansetron 4 mg tablet,disintegrating 4 mg PO Q8H PRN (Reason: nausea and vomiting) Qty: 20 0RF triamcinolone acetonide [Nasacort] 55 mcg aerosol,spray 2 spray intranasal DAILY PRN (Reason: Nasal Congestion) Rx Instructions: administer into each nostril mecobalamin (vitamin B12) 500 mcg tablet,chewable 500 mcg PO DAILY CBD 2 tab PO HS Patient Comments: Takes 50-100mg a day Rx Instructions: GUMMIES FOR KNEE PAIN melatonin 3 mg Tablet 3 mg PO HS famotidine 20 mg tablet 40 mg PO BID Rx Instructions: PER PT "NEW ORDER" omeprazole 20 mg capsule,delayed release(DR/EC) 40 mg PO HS Rx Instructions: PER PT "NEW ORDER". zolpidem [Ambien] 5 mg tablet 5 mg PO HS PRN (Reason: Sleep) Rx Instructions: (may repeat dose x 1 as needed)
[2024-06-09 14:18] LABS: Appearance Urine Clear (Clear); Bacteria Urine Automated None Seen (None Seen); Bilirubin Urine Negative (Negative); Blood Urine Negative (Negative); Cast Urine Automated 0-2 /lpf (0-2); Color Urine Yellow; Epithelial Cell Urine Auto 0-2 /hpf (0-2); Glucose Urine UA Negative (Negative); Ketones Urine Negative (Negative); Leukocyte Esterase Urine 1+ (Negative); Nitrite Urine Negative (Negative); Protein Urine Negative (Negative); RBC Urine Automated 0-2 /hpf (0-2); Specific Gravity Urine 1.018 (1.000-1.030); Urobilinogen Urine Negative (Negative); WBC Urine Automated 0-5 /hpf (0-5)
[2024-06-09] MEDS: ONDANSETRON INJ 2 MG/ML 2 ML VIAL IV STA (14:37)
[2024-06-09] MEDS: SODIUM CHLORIDE 0.9% 1,000 ML IV ONE (14:37)
--- NOTE | 2024-06-09 14:50 | XRay Report ---
XR chest 1V portable CLINICAL HISTORY: Upper abd pain COMPARISON STUDY: 11/14/2021 FINDINGS: Heart size and pulmonary vasculature are normal. No effusion, consolidation, or pneumothora x. IMPRESSION: No acute findings. ACT 112: Negative or not required by law. Electronically signed by: Benoit Worrell M.D. 06/09/2024 2:48 PM
--- NOTE | 2024-06-09 14:58 | Electrocardiogram Report ---
Test Reason : Blood Pressure : */* mmHG Vent. Rate : 63 BPM Atrial Rate : 63 BPM P-R Int : 198 ms QRS Dur : 84 ms QT Int : 414 ms P-R-T Axes : 61 23 43 degrees QTcB Int : 423 ms Normal sinus rhythm Normal ECG When compared with ECG of 27-Dec-2022 14:44, No significant change was found Confirmed by Aman Ricketts ([id number]) on 06/09/2024 2:57:44 PM Referred By: REFERRED SELF Confirmed By: Aman Ricketts
[2024-06-09 15:03] LABS: Troponin I High Sensitivity 2.5 pg/ml (0-14)
[2024-06-09] MEDS: ACETAMINOPHEN 325 MG TAB PO STA (15:20)
[2024-06-09] MEDS: OPTIRAY 320 100ml IV ONE (15:45)
--- NOTE | 2024-06-09 16:02 | CT Scan Report ---
ABDOMEN AND PELVIS CT WITH IV CONTRAST CT DOSE: 1134.83 mGy.cm HISTORY: Abd pain, nausea, hypotension (prehospital) TECHNIQUE: Multiaxial CT images of the abdomen and pelvis were performed following the IV administrat ion of 90 cc of Optiray, A dose lowering technique was utilized adhering to the principles of ALARA. COMPARISON STUDY: 05/29/2019 FINDINGS: ABDOMEN: Small cyst lateral right hepatic lobe is stable. Otherwise the liver, gallbladder, spleen, p ancreas, and adrenal glands are unremarkable. Kidneys show no hydronephrosis or calculi. There are mi ld atherosclerotic calcifications. No abdominal aortic aneurysm. Pelvis: Uterus and adnexa are grossly unremarkable. Urinary bladder is decompressed. There is moderat e retained stool. There is mild colonic diverticulosis. No acute diverticulitis. No bowel inflammatio n or obstruction. Normal appendix. No free fluid, free air, or abscess. No enlarged adenopathy. Osseous structures: No acute osseous findings. IMPRESSION: No acute findings. ACT 112: Negative or not required by law. The above report was generated using voice recognition software. It may contain grammatical, syntax o r spelling errors. Electronically signed by: Benoit Worrell M.D. 06/09/2024 4:00 PM
[2024-06-09 16:22] LABS: Adenovirus PCR Not Detected (NotDetected); Bordetella parapertussis PCR Not Detected (NotDetected); Bordetella pertussis PCR Not Detected (NotDetected); Chlamydia pneumoniae PCR Not Detected (NotDetected); Coronavirus 229E PCR Not Detected (NotDetected); Coronavirus CoV-2 (COVID19)PCR Not Detected (NotDetected); Coronavirus HKU1 PCR Not Detected (NotDetected); Coronavirus NL63 PCR Not Detected (NotDetected); Coronavirus OC43PCR Not Detected (NotDetected); Human Metapneumovirus PCR Not Detected (NotDetected); Influenza A PCR Not Detected (NotDetected); Influenza B PCR Not Detected (NotDetected); Mycoplasma pneumoniae PCR Not Detected (NotDetected); Parainfluenza Virus 1 PCR Not Detected (NotDetected); Parainfluenza Virus 2 PCR Not Detected (NotDetected); Parainfluenza Virus 3 PCR Not Detected (NotDetected); Parainfluenza Virus 4 PCR Not Detected (NotDetected); Respiratory Syncytial VirusPCR Not Detected (NotDetected); Rhinovirus/Enterovirus PCR Not Detected (NotDetected)
--- NOTE | 2024-06-09 17:35 | Ultrasound Report ---
Clinical history: Right upper quadrant pain Technique: Sonography was performed of the right upper quadrant of the abdomen Comparison is made to the liver ultrasound dated 05/29/2023 Findings: There is fatty infiltration of the liver. There is an unchanged 1.7 cm simple appearing cyst in the right hepatic lobe anteriorly. No definite liver mass is seen. There is normal directional flow in the main portal vein Multiple gallstones are present. The gallbladder wall is of normal thickness. No definite sonographic Mercedes sign was detected. There is no intrahepatic or extrahepatic bile duct dilatation. The common bile duct measures 5 mm The right kidney demonstrates normal size and echogenicity. There is no hydronephrosis. No definite renal calculus or mass is seen The visualized pancreas, aorta, and IVC appear unremarkable. No ascites is seen Impression: 1. Cholelithiasis without evidence of acute cholecystitis 2. Small hepatic cyst, unchanged 3. Unchanged fatty infiltration of the liver Electronically signed by George Garcia 06-09-2024 5:34 PM
[2024-06-09] MEDS: SUCRALFATE 1 GM/10 ML UDC PO STA (18:32)
[2024-06-09] MEDS: ALUMINUM/MAGNESIUM SUSP 30 ML UDC PO STA (18:32)
[2024-06-09] MEDS: FAMOTIDINE 20MG IV PUSH 20 MG/5 ML SYR IV STA (18:34)
--- NOTE | 2024-06-09 19:20 | History & Physical Report ---
Date of Service June 09, 2024 Assessment & Plan (1) Abdominal pain: Plan 68-year-old female PMHx diverticulitis, renal calculi, CAD, PVCs, celiac artery compression, insomnia presenting for abdominal pain x 4-5 days. ED evaluation reveals no leukocytosis, stable H&H 11.8/36.5, sodium 133, LFTs WNL, lipase 33; UA WNL with infection; BioFire negative; CTAP without acute findings; CXR without acute findings; gallbladder ultrasound cholelithiasis without evidence of acute cholecystitis, small hepatic cyst unchanged, unchanged fatty infiltrate of liver; EKG NSR at 63 bpm. #Abdominal pain Patient with 4 recent visit regarding abdominal pain, initially [facility] (06/06) for concerns of PUD/gastritis/esophagitis and discharged on Carafate, pepcid, and PPI. Evaluated by PCP 06/08 and trialed on zofran in addition. GI + general surgery evaluate patient for gallstones. Seen by GI day of arrival and increased famotidine, omeprazole, carafate, and started miralax; was found to be hypotensive during appointment. CT without obstruction or acute findings, revealing moderate retained stool. History of gastritis, celiac artery compression syndrome, and diverticulitis. Suspect symptoms combination of such. - CBC w/o leukocytosis, H/H stable 11.8/36.5 - CBC am - CMP grossly WNL; lipase 33- LFTs am - CTAP without acute findings; gallstone US reveals cholelithiasis without evidence of acute cholecystitis - Clear liquids now, NPO midnight - Protonix 40mg IV BID; continue outpatient GI meds - famotidine, ondansetron, sucralfate - LR @ 80 mL/hr - GI consulted- appreciate input + recs #Palpitations- Metoprolol #Insomnia- Ambien #Migraines- Fioricet, Venlafaxine, Riboflavin, magnesium Dispo: Admit, med/tele VTE prophylaxis: SCDs This document was dictated utilizing Zimride. Please excuse any grammatical errors that may be secondary to use of this software. Admission and Anticipated Discharge Date Admission Date: 06/09/2024 History of Present Illness Chief Complaint: Abdominal pain Primary Care Provider: Paula Kc MD 68-year-old female PMHx diverticulitis, renal calculi, CAD, PVCs, celiac artery compression, insomnia presenting for abdominal pain x 5 days MANAGER BAR. Patient was seen at outpatient GI appointment on the day of arrival in which she was found to be hypotensive and this is why she was encouraged to come to the ED. States that she has been having abdominal pain that comes in waves but over the past 5 days, the pain worsened and became more severe. She started to experience sharp pain in her central abdomen that did not originally radiate, but then as the days progressed it started to move to the RUQ. States that she has had an "ulcerated stomach" identified approximately 2 years ago on endoscopy, but no other concerns since then. 3 days MANAGER BAR she was evaluated at [facility] for chest pressure that was thought to be GI in nature rather than cardiovascular. She then saw her PCP 1 day MANAGER BAR who encouraged her to follow up with GI. On the day of arrival patient was seen by GI and initially was to be managed as outpatient with a bowel regimen and her usual medications, but when they checked her BP, she was hypotensive in the 80s. States that her current pain is still sharp and located throughout her abdomen now. Has had issues with constipation in the past. Has had episodes of nausea without vomiting. Does feel that her symptoms revolve around eating, stating that she starts to have pain and nausea as soon as she eats but she has not had any vomiting. Did have some dizziness the day of arrival but states it is mainly with positional changes and she reports poor intake over the days leading to admission. Denies F/C. No chest pain, SOB, palpitations, numbness/tingling, INGRAM, or URI symptoms. States she tries to stay away from IBU and takes Tylenol and CBD for pain/headache. ED evaluation reveals no leukocytosis, stable H&H 11.8/36.5, sodium 133, LFTs WNL, lipase 33; UA WNL with infection; BioFire negative; CTAP without acute findings; CXR without acute findings; gallbladder ultrasound cholelithiasis without evidence of acute cholecystitis, small hepatic cyst unchanged, unchanged fatty infiltrate of liver; EKG NSR at [address] Nguyễn's attestation for adjustments/additions to treatment plan. Allergies Allergy/AdvReac Type Severity Reaction Status Date / Time rimegepant [From [facility] ODT] Allergy Severe Nausea, Verified 06/09/24 17:26 migraine estrogens, conjugated Allergy Intermediate VAG Verified 06/09/24 17:26 BURNING AND RASH [id number] Allergy Intermediate rash and Verified 06/09/24 17:26 [From Ajovy Syringe] not feeling well sumatriptan Allergy Intermediate Chest Pain Verified 06/09/24 17:26 [id number] Allergy Mild Rash Verified 06/09/24 17:26 [From Emgality Pen] nickel Allergy Mild redness, Verified 06/09/24 17:26 swelling, itching with E[place] lamotrigine [From Lamictal] AdvReac Severe hypotension, Verified 06/09/24 17:26 palpitations birch trees Allergy Unknown Unknown Uncoded 06/09/24 17:26 sycamore tree Allergy Unknown Unknown Uncoded 06/09/24 17:26 Home Medications Medication Instructions Recorded Confirmed Type cholecalciferol (vitamin D3) 25 25 mcg PO QPM 09/07/22 06/09/24 History mcg (1,000 unit) capsule magnesium oxide 400 mg (241.3 mg 400 mg PO QPM 09/07/22 06/09/24 History magnesium) tablet aspirin 81 mg tablet,delayed 81 mg PO HS 12/20/22 06/09/24 History release riboflavin (vitamin B2) 100 mg 200 mg PO QPM 12/20/22 06/09/24 History tablet melatonin 3 mg tablet 3 mg PO HS 12/24/22 06/09/24 History acyclovir 200 mg capsule 200 mg PO QPM #90 caps 06/11/23 06/09/24 Rx metoprolol succinate 25 mg 12.5 mg (1/2 x 25 mg) PO QPM #90 06/11/23 06/09/24 Rx tablet,extended release 24 hr tabs venlafaxine 25 mg tablet 25 mg PO BID #180 tabs 06/11/23 06/09/24 Rx oxubwocanx-yszrudehovqlk-opoenvoe 1 cap PO Q8H PRN pain #30 caps 08/01/23 06/09/24 Rx 50 mg-300 mg-40 mg capsule (Fioricet) ketoconazole 2 % shampoo 1 applic topical .COMPLEX #120 mL 11/05/23 06/09/24 Rx CBD 2 tab PO HS 11/11/23 06/09/24 History mecobalamin (vitamin B12) 500 mcg 500 mcg PO DAILY 11/11/23 06/09/24 History chewable tablet triamcinolone acetonide 55 mcg 2 spray intranasal DAILY PRN Nasal 11/11/23 06/09/24 History nasal spray aerosol (Nasacort) Congestion ondansetron 4 mg disintegrating 4 mg PO Q8H PRN nausea and 06/08/24 06/09/24 Rx tablet vomiting #20 tabs sucralfate 1 gram tablet 1 g PO ACHS #136 tabs 06/08/24 06/09/24 Rx famotidine 20 mg tablet 40 mg PO BID 06/09/24 06/09/24 History omeprazole 20 mg capsule,delayed 40 mg PO HS 06/09/24 06/09/24 History release zolpidem 5 mg tablet (Ambien) 5 mg PO HS PRN Sleep 06/09/24 06/09/24 History Past Med/Surg History Problem List Decreased oral intake (Acute) Nausea (Acute) Acute upper abdominal pain (Acute) Abdominal pain Epigastric abdominal pain (Acute) Ruptured Bakers cyst Cellulitis of right lower extremity Arthralgia of multiple joints Contact dermatitis Pruritus Chronic rhinitis Angioedema Liver cyst Calcific tendinitis of right shoulder Encounter for pre-operative examination PVC (premature ventricular contraction) PAC (premature atrial contraction) History of kidney stones last episode 03/2022 History of diverticulitis 2021 Migraine headache (Chronic) Axillary lump Hearing loss Decreased rectal sphincter tone Encounter for preventive health examination Routine health maintenance Palpitations Non-healing skin lesion Osteoarthritis of right patellofemoral joint Sinus tachycardia Carpal tunnel syndrome Trochanteric bursitis, left hip Insomnia Carotid artery plaque Locking of right knee Iliotibial band syndrome of right side Asymmetrical hearing loss Thyroid nodule greater than or equal to 1 cm in diameter incidentally noted on imaging study Encounter for examination following treatment at hospital Mild CAD Abnormal echocardiogram Atopic dermatitis Diverticulosis Celiac artery compression syndrome Insomnia Paresthesia of both lower extremities Bilateral ankle pain Knee pain, bilateral Lower back pain Heartburn Metabolic syndrome Peripheral neuropathic pain b/l LEs Medication adverse effect Headache, chronic migraine without aura History of colon polyps BENIGN Fatty liver monitored by PCP Medical History Hiatal hernia GERD (gastroesophageal reflux disease) controlled, stable per pt History of non-ST elevation myocardial infarction (NSTEMI) 10/2021-no stents TMJ (temporomandibular joint disorder) denies clicking or locking CAD (coronary artery disease) nonobstructive, follows with Dr. 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 HX POLYP AND REMOVED History of colonoscopy History of plastic surgery X3, facial, liposuctions History of cardiac cath [facility] NOV 07 2021...VERY SMALL MILD BLOCKAGE PER PT , NO STENT(S) Status post ectopic Laparoscopy with excision of ectopic Hx of shoulder surgery left, rotator cuff repair 2012 Hx of section Family History Father Non-Hodgkin lymphoma Heart disease Cancer Non-hodgkin's lymphoma Grandfather (Paternal) Lung cancer Cancer Aunt Brain cancer Cancer brain Mother Vascular dementia Grandmother (Maternal) Heart disease Grandfather (Maternal) Heart disease Grandmother (Paternal) Cancer Other No family history of adverse response to anesthesia Denies family history of Ovarian cancer Prostate cancer Myocardial infarction Breast cancer Colorectal cancer Social History Smoking Status: Never smoker Second Hand Exposure: Yes (As a child. 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[employer], [employer] How many Children do You have: 1 Feels Safe at Home: Yes Childhood Exposure to Second-Hand Smoke: Yes Diet: regular caffeine: Yes during the past year weight has: remained stable Dental Care, Regularly: Yes Physical Activity Frequency: Does not Exercise Seatbelt Use: always Sunscreen Use: Yes Do you think of yourself as: straight/heterosexual Sexual Activity: has been sexually active within the last 12 months Gender Identity: Female Assistive Devices: Glasses and Hearing Aid - Bilateral Review of Systems Review of Systems: All systems reviewed & are unremarkable except as noted in Subjective Physical Exam Physical Exam: General: No acute distress Skin: Warm and dry Head: Normocephalic, atraumatic Eyes: PERRL, conjunctivae clear, sclera non-icteric ENT: External ear and ear canal without swelling; nose atraumatic; good dentition, tongue normal appearance, pharynx normal Neck: Supple, no LAD Cardio: RRR, no M/G/R, S1 and S2 normal Resp: No respiratory distress, Lungs CTA in all lobes bilaterally, no wheezes, rales, or rhonchi Abdomen: Soft, symmetric, tenderness to palpation L side abdomen, slight tenderness at epigastric region; No masses or hepatosplenomegaly; Bowel sounds normoactive MSK: No deformities; pulses palpable and equal; no edema. Neuro: Awake, alert; Sensation intact bilaterally; CN grossly intact Psych: Appropriate mood and affect; good judgement and insight. Fidgeting throughout visit. Results & Data Results & Data Vital Signs (Past 12 Hours) Vital Signs Temp Pulse Pulse Resp BP BP Pulse Ox 06/09/24 17:32 61 20 125/61 98 06/09/24 16:40 72 20 133/72 98 06/09/24 14:49 58 L 06/09/24 13:50 77 18 115/76 98 06/09/24 12:20 36.3 C L 60 20 119/71 95 O2 Del Method 06/09/24 17:32 Room Air 06/09/24 16:40 06/09/24 14:49 06/09/24 13:50 06/09/24 12:20 Room Air Laboratory Results 06/09/24 06/09/24 06/09/24 15:22 14:00 12:29 WBC 8.72 RBC 4.39 Hgb 11.8 L Hct 36.5 L MCV 83.1 MCH 26.9 MCHC 32.3 RDW Std Deviation 40.0 RDW Coeff of Timo 13.2 Plt Count 348 MPV 10.8 Immature Gran % (Auto) 0.2 Neut % (Auto) 54.0 Lymph % (Auto) 28.1 [place] % (Auto) 9.5 Eos % (Auto) 7.1 Baso % (Auto) 1.1 Neut # (Auto) 4.70 Lymph # (Auto) 2.45 [place] # (Auto) 0.83 H Eos # (Auto) 0.62 H Baso # (Auto) 0.10 Immature Gran # (Auto) 0.02 Sodium 133 L Potassium 4.2 Chloride 100 Carbon Dioxide 29 Anion Gap 4 BUN 14 Creatinine 1.06 Est Cr Clr Drug Dosing 49.3 eGFR 56.87 BUN/Creatinine Ratio 13.2 Glucose 88 Calcium 9.1 Total Bilirubin 0.3 AST 17 ALT 15 Alkaline Phosphatase 86 Troponin I High Sens 2.5 Total Protein 7.1 Albumin 4.4 Globulin 2.7 Albumin/Globulin Ratio 1.6 Lipase 33 Urine Color Yellow Urine Appearance Clear Urine pH 6.0 Ur Specific [place] 1.018 Urine Protein Negative Urine Glucose (UA) Negative Urine Ketones Negative Urine Blood Negative Urine Nitrite Negative Urine Bilirubin Negative Urine Urobilinogen Negative Ur Leukocyte Esterase 1+ H Urine WBC (Auto) 0-5 Urine RBC (Auto) 0-2 U Hyaline Cast (Auto) 0-2 U Epithel Cells (Auto) 0-2 Urine Bacteria (Auto) None Seen Adenovirus (PCR) Not Detected B. pertussis DNA (PCR) Not Detected B.parapertussis DNA PCR Not Detected C. pneumoniae DNA (PCR) Not Detected Coronavirus OC43 (PCR) Not Detected Coronavirus HKU1 (PCR) Not Detected Coronavirus 229E (PCR) Not Detected SARS-CoV-2 (PCR) Not Detected Coronavirus NL63 (PCR) Not Detected Human Metapneumovir PCR Not Detected Influenza Type A (PCR) Not Detected Influenza Type B (PCR) Not Detected M. pneumoniae (PCR) Not Detected Parainfluenza 1 (PCR) Not Detected Parainfluenza 2 (PCR) Not Detected Parainfluenza 3 (PCR) Not Detected Parainfluenza 4 (PCR) Not Detected RSV (PCR) Not Detected Entero/Rhino (PCR) Not Detected Diagnostic Findings Abdomen/Pelvis CT 06/09/24 14:[address] WITH IV CONTRAST CT DOSE: 1134.83 mGy.cm HISTORY: Abd pain, nausea, hypotension (prehospital) TECHNIQUE: Multiaxial CT images of the abdomen and pelvis were performed following the IV administration of 90 cc of Optiray, A dose lowering technique was utilized adhering to the principles of ALARA. COMPARISON STUDY: 05/29/2019 FINDINGS: ABDOMEN: Small cyst lateral right hepatic lobe is stable. Otherwise the liver, gallbladder, spleen, pancreas, and adrenal glands are unremarkable. Kidneys show no hydronephrosis or calculi. There are mild atherosclerotic calcifications. No abdominal aortic aneurysm. Pelvis: Uterus and adnexa are grossly unremarkable. Urinary bladder is decompressed. There is moderate retained stool. There is mild colonic diverticulosis. No acute diverticulitis. No bowel inflammation or obstruction. Normal appendix. No free fluid, free air, or abscess. No enlarged adenopathy. Osseous structures: No acute osseous findings. IMPRESSION: No acute findings. ACT 112: Negative or not required by law. The above report was generated using voice recognition software. It may contain grammatical, syntax or spelling errors. Electronically signed by: Benoit Worrell M.D. 06/09/2024 4:00 PM Chest X-Ray 06/09/24 14:26 XR chest 1V portable CLINICAL HISTORY: Upper abd pain COMPARISON STUDY: 11/14/2021 FINDINGS: Heart size and pulmonary vasculature are normal. No effusion, consolidation, or pneumothorax. IMPRESSION: No acute findings. ACT 112: Negative or not required by law. Electronically signed by: Benoit Worrell M.D. 06/09/2024 2:48 PM Gallbladder Ultrasound 06/09/24 16:09 Clinical history: Right upper quadrant pain Technique: Sonography was performed of the right upper quadrant of the abdomen Comparison is made to the liver ultrasound dated 05/29/2023 Findings: There is fatty infiltration of the liver. There is an unchanged 1.7 cm simple appearing cyst in the right hepatic lobe anteriorly. No definite liver mass is seen. There is normal directional flow in the main portal vein Multiple gallstones are present. The gallbladder wall is of normal thickness. No definite sonographic Mercedes sign was detected. There is no intrahepatic or extrahepatic bile duct dilatation. The common bile duct measures 5 mm The right kidney demonstrates normal size and echogenicity. There is no hydronephrosis. No definite renal calculus or mass is seen The visualized pancreas, aorta, and IVC appear unremarkable. No ascites is seen Impression: 1. Cholelithiasis without evidence of acute cholecystitis 2. Small hepatic cyst, unchanged 3. Unchanged fatty infiltration of the liver Electronically signed by George Garcia 06-09-2024 5:34 PM Medications Administered Sucralfate 1g po Ondansetron 4mg IV Famotidine 20mg IV Al hydrox/Mg hydrox/Sim 15mL po Acetaminophen 650mg po 1L NSS ECG Additional Comments: cc: ~ DICTATED BY: Aman Ricketts MD Test Reason : Blood Pressure : */* mmHG Vent. Rate : 63 BPM Atrial Rate : 63 BPM P-R Int : 198 ms QRS Dur : 84 ms QT Int : 414 ms P-R-T Axes : 61 23 43 degrees QTcB Int : 423 ms Normal sinus rhythm Normal ECG When compared with ECG of 27-Dec-2022 14:44, No significant change was found Confirmed by Aman Ricketts ([id number]) on 06/09/2024 2:57:44 PM Referred By: REFERRED SELF Confirmed By: Aman Ricketts Code Status & VTE Plan Code Status Full Supervising Physician Co-Signing Physician Notes Patient seen and examined, chart reviewed, case discussed with CASSIE Israel and I agree with the assessment and plan as above. In brief, patient is a 68yo male with history of diverticulitis, renal calculi, celiac artery compression, gastritis presenting with 4-5 days of abdominal pain - mostly post-prandial, associated nausea. Also with episodes of RUQ throbbing pain. She has been seen several times for this discomfort. Had low blood pressure today and was sent to the ER. On exam patient is resting comfortably, NAD +S1/S2, regular, no m/r/g Lungs CTA anteriorly Abd soft, mildly tender in the mid-abdomen with no rebound or guarding Ext - no edema Labs and images reviewed Assessment/Plan Abdominal pain - etiology unclear. Patient with multiple possible etiologies for abdominal pain. Post-prandial in nature raises concern for possible ulcer, possible celiac artery compression -Continue Protonix 40mg IV BID -Continue Sucralfate, Zofran Pepcid -Gentle hydration -GI consultation appreciated -Remainder as above PG Care Time/CCT Total # of Minutes Spent Total Time Spent with Patient: Total time spent is greater than 50% in coordination of care (as documented) at patient's floor/unit and/or counseling patient: Coding Level of Care Code 84814 INT INP/OBS CARE MIN Diagnoses Abdominal pain R10.9
[2024-06-09] MEDS: LACTATED RINGER'S 1,000 ML IV SCH (21:39)
[2024-06-09] MEDS ORDERED: BUTALBITAL/ACETAMIN/CAFFEINE TAB PO PRN (21:48)
[2024-06-09] MEDS: PANTOprazole 40 MG/10 ML SYR IV SCH (22:21)
[2024-06-09] MEDS: MAGNESIUM OXIDE 400 MG TAB PO SCH (22:21)
[2024-06-09] MEDS: VENLAFAXINE HCL 50 MG TAB PO SCH (22:22)
[2024-06-09] MEDS: POLYETHYLENE (MIRALAX) 17 GM PACK PO SCH (22:22)
[2024-06-09] MEDS: ASPIRIN 81 MG ECTAB PO SCH (22:22)
[2024-06-09] MEDS: MELATONIN 3 MG TAB PO SCH (22:22)
[2024-06-09] MEDS: FAMOTIDINE 40 MG TABLET PO SCH (22:23)
[2024-06-09] MEDS: SUCRALFATE 1 GM TAB PO SCH (22:23)
[2024-06-09] MEDS: METOPROLOL SUCC 25MG EXT REL TAB PO SCH (22:23)
[2024-06-09] MEDS: ACYCLOVIR 200 MG CAP PO SCH (22:23)
--- NOTE | 2024-06-10 07:49 | Hospitalist Progress Note ---
Date of Service June 10, 2024 Assessment & Plan (1) Abdominal pain: Plan 68-year-old female PMHx diverticulitis, renal calculi, CAD, PVCs, celiac artery compression, insomnia presenting for abdominal pain x 4-5 days. ED evaluation reveals no leukocytosis, stable H&H 11.8/36.5, sodium 133, LFTs WNL, lipase 33; UA WNL with infection; BioFire negative; CTAP without acute findings; CXR without acute findings; gallbladder ultrasound cholelithiasis without evidence of acute cholecystitis, small hepatic cyst unchanged, unchanged fatty infiltrate of liver; EKG NSR at 63 bpm. Sent by GI office, BP 88/58 and recheck 93/58 with reports of feeling dizzy. Worse after eating reported. * 4 recent visit regarding abdominal pain, initially [facility] (06/06) for concerns of PUD/gastritis/esophagitis and discharged on Carafate, pepcid, and PPI. Evaluated by PCP 06/08 and trialed on zofran in addition. GI + general surgery evaluate patient for gallstones. Seen by GI day of arrival and increased famotidine, omeprazole, carafate, and started miralax; was found to be hypotensive during appointment. CT without obstruction or acute findings, revealing moderate retained stool. History of gastritis, celiac artery compression syndrome, and diverticulitis. Suspect symptoms combination of such. #Abdominal pain Hx PUD. Pain worse after eating since this past Saturday. Denied recent NSAIDs, no blood/melena reported and hgb stable ?PUD, celiac artery compression? passed stone vs other --was told scan at [facility] noting likely component of gastritis/peptic ulcer disease -- did review imaging and noted several small GB calculi and mild constipation but no acute keshia CTAP on admission without acute keshia, notes mild constipation (no stones noted) RUQ US cholelithiasis without acute keshia, small cyst. LFTs wnl, lipase 33 Continued on Protonix IV BID, famotidine, zofran, carafate IVF, NPO, GI consulted HIDA scan ordered * 1. No evidence for acute cholecystitis. * -2. Delayed visualization of small bowel activity, a nonspecific finding which can be due to sphincter spasm, sphincter dysfunction or partial common bile duct obstruction. Findings could be correlated with obstructive liver function tests. ?passed stone, spincter of Oddi dysfunction, ?need for ERCP/EUS -- message to GI but will order diet for now. Clear--> adv as tolerated Bentyl added for possible colic type pain, monitor response Also notable taking CBD for knees, not knee. Recent started THC gummies ~4months ago and cannot r/o contribution but reports acute issues began this past Saturday but does note issues with constipation at baseline and bowel regimen added/monitoring. Continue pain control as needed Labs/exam in AM Continued inpatient stay #Palpitations - reported issue, TSH wnl in the past 30 days and remains on metoprolol -BPs stable, IVF support and BP 121/70 and will monitor #Insomnia - Ambien continued #Migraines - Fioricet, Venlafaxine, Riboflavin, magnesium avialable, does report some headache with carafate but discussed continuing. VTE prophylaxis: SCDs, avoid chemoproph for now w/ concerns possible PUD vs other/possible EGD in AM Dispo: continued inpatient stay, pending further recs by GI for HIDA. Diet ordered/monitoring response. Continue medical therapy as ordered for now Admission and Anticipated Discharge Date Admission Date: June 09, 2024 Supervising Physician Co-Signing Physician Notes The patient was not seen by me. The chart was reviewed. Case discussed with RAY Ghotra. Agree with assessment and plan Subjective Eval this morning, resting in bed. Hasn't eaten anything in 2-3 days, last BM on Saturday. Takes miralax at times at home for constipation. Reports improvement in pain since H2/carafate/ppi but increased headache w/ carafate and hx migraines. Poor sleep, discussed could contribute to headache but would continue carafate given hx ulcers and pain after eating. Reports feeling hungry, discussed HIDA scan and consideration for Bentyl pending results if normal for biliary colic. She is not happy about not eating, but also discussed her concerns for ongoing pain Has been using CBD gummies a year for knee pain but recent 4 months ago started 3mg THC gummies as well. Discussed could have contributing but acute pain started Saturday. No recent sick contacts/eating out or concerns for food poisoning. No CP/SOB. Questions/concerns addressed at this time. Physical Exam 2 Physical Exam: General: 68 yo female laying in bed, NAD but reporting she is hungry Head atraumatic,normocephalic, mm slightly dry, trachea midline Resp even/unlabored, no wheezing/rales, on room air CV RRR, no significant m/r/g, no pitting edema, pulses present GI: +BS, +tenderness RUQ/LLQ but also generalized, voluntary guarding but no rigidity/peritoneal signs : no ortez MSK/Neuro: nonfocal, not confused, answering questions appropriately Psych: AOx3, cooperative Results & Data Results & Data Vital Signs (Past 12 Hours) Vital Signs Temp Pulse Pulse Resp BP Pulse Ox O2 Del Method 06/10/24 07:24 36.6 C 71 18 116/70 96 Room Air 06/10/24 03:44 36.5 C 66 20 99/59 L 94 Room Air 06/09/24 23:40 36.5 C 72 20 115/67 93 Room Air 06/09/24 22:48 72 06/09/24 20:30 36.5 C 57 L 18 112/60 93 Room Air 06/09/24 20:00 57 L 14 112/45 L 92 Room Air Laboratory Results 06/10/24 07:46 06/10/24 07:57 Diagnostic Findings Abdomen/Pelvis CT 06/09/24 14:[address] WITH IV CONTRAST CT DOSE: 1134.83 mGy.cm HISTORY: Abd pain, nausea, hypotension (prehospital) TECHNIQUE: Multiaxial CT images of the abdomen and pelvis were performed following the IV administration of 90 cc of Optiray, A dose lowering technique was utilized adhering to the principles of ALARA. COMPARISON STUDY: 05/29/2019 FINDINGS: ABDOMEN: Small cyst lateral right hepatic lobe is stable. Otherwise the liver, gallbladder, spleen, pancreas, and adrenal glands are unremarkable. Kidneys show no hydronephrosis or calculi. There are mild atherosclerotic calcifications. No abdominal aortic aneurysm. Pelvis: Uterus and adnexa are grossly unremarkable. Urinary bladder is decompressed. There is moderate retained stool. There is mild colonic diverticulosis. No acute diverticulitis. No bowel inflammation or obstruction. Normal appendix. No free fluid, free air, or abscess. No enlarged adenopathy. Osseous structures: No acute osseous findings. IMPRESSION: No acute findings. ACT 112: Negative or not required by law. The above report was generated using voice recognition software. It may contain grammatical, syntax or spelling errors. Electronically signed by: Benoit Worrell M.D. 06/09/2024 4:00 PM Chest X-Ray 06/09/24 14:26 XR chest 1V portable CLINICAL HISTORY: Upper abd pain COMPARISON STUDY: 11/14/2021 FINDINGS: Heart size and pulmonary vasculature are normal. No effusion, consolidation, or pneumothorax. IMPRESSION: No acute findings. ACT 112: Negative or not required by law. Electronically signed by: Benoit Worrell M.D. 06/09/2024 2:48 PM Gallbladder Ultrasound 06/09/24 16:09 Clinical history: Right upper quadrant pain Technique: Sonography was performed of the right upper quadrant of the abdomen Comparison is made to the liver ultrasound dated 05/29/2023 Findings: There is fatty infiltration of the liver. There is an unchanged 1.7 cm simple appearing cyst in the right hepatic lobe anteriorly. No definite liver mass is seen. There is normal directional flow in the main portal vein Multiple gallstones are present. The gallbladder wall is of normal thickness. No definite sonographic Mercedes sign was detected. There is no intrahepatic or extrahepatic bile duct dilatation. The common bile duct measures 5 mm The right kidney demonstrates normal size and echogenicity. There is no hydronephrosis. No definite renal calculus or mass is seen The visualized pancreas, aorta, and IVC appear unremarkable. No ascites is seen Impression: 1. Cholelithiasis without evidence of acute cholecystitis 2. Small hepatic cyst, unchanged 3. Unchanged fatty infiltration of the liver Electronically signed by George Garcia 06-09-2024 5:34 PM Hepatobiliary Scan Nuclear Medicine 06/10/24 10:25 NUCLEAR MEDICINE HEPATOBILIARY SCAN CLINICAL HISTORY: Abdominal pain. COMPARISON: CT of the abdomen and pelvis and right upper quadrant ultrasound June 09, 2024. TECHNIQUE: 5.1 mCi of technetium 99m Choletec IV was injected at 1:34 PM on June 10, 2024. Immediately following injection, imaging of the abdomen was carried out for 60 minutes in the anterior projection. FINDINGS: Hepatic uptake of radiotracer is prompt and homogeneous. Activity is identified within the gallbladder at 10 minutes. Common bile duct activity is confidently identified at 60 minutes. Small bowel activity was identified at 120 minutes. IMPRESSION: 1. No evidence for acute cholecystitis. 2. Delayed visualization of small bowel activity, a nonspecific finding which can be due to sphincter spasm, sphincter dysfunction or partial common bile duct obstruction. Findings could be correlated with obstructive liver function tests. ACT 112: Negative or not required by law. Electronically signed by: Jignesh Fontenot M.D. 06/10/2024 3:47 PM PG Care Time/CCT Total # of Minutes Spent Total Time Spent with Patient: Total time spent is greater than 50% in coordination of care (as documented) at patient's floor/unit and/or counseling patient: Coding Level of Care Code 14414 SUB INP/OBS CARE 3/50MIN Diagnoses Abdominal pain R10.9
[2024-06-10 08:51] LABS: Hematocrit (blood only) 36.5 % (37.0-47.0); Hemoglobin 11.9 g/dl (12.0-16.0); Mean Corpuscular Hemoglobin 27.1 pg (25.0-34.0); Mean Corpuscular Hgb Conc 32.6 g/dL (32.0-36.0); Mean Corpuscular Volume 83.1 fL (80.0-100.0); Mean Platelet Volume 10.7 fL (9.4-12.4); Platelet Count 324 K/uL (130-400); RDW Coefficient of Variation 13.3 % (11.5-14.5); RDW Standard Deviation 40.4 fL (36.4-46.3); Red Blood Count 4.39 M/uL (4.20-5.40); White Blood Count 7.58 K/ul (4.8-10.8)
[2024-06-10] MEDS: CYANOCOBALAMIN (B-12) 500 MCG TABLET PO SCH (09:05)
[2024-06-10 09:06] LABS: Albumin Level 3.9 gm/dl (3.4-5.0); BUN Creatinine Ratio 7.5 (10-20); Bilirubin Direct 0.1 mg/dl (0-0.2); Bilirubin,Total 0.5 mg/dl (0.2-1.0); Calcium 8.8 mg/dl (8.6-10.3); Creatinine Clr Calc Pharmacy 49.3 ml/min; Magnesium 2.3 mg/dl (1.7-2.4); Total Protein 6.3 gm/dl (6.0-8.3)
--- NOTE | 2024-06-10 11:28 | Gastrointestinal Consultation ---
<Statement entered by Ziggy Means MD - 06/10/24 18:25> I have reviewed the history, physical exam, lab and imaging findings as dictated by the mid-level provider, made any necessary modifications, and agree with the stated assessment and recommendations. A total of 60 minutes was spent in the review, direct observation, decision making and discussion of this case with the patient/family and other providers. Ziggy Means MD Date of Consultation June 10, 2024 Assessment & Plan (1) Nausea: (2) Epigastric abdominal pain: The basis of this reportedly relatively new onset left-sided abdominal pain and now nausea is unclear; ? biliary (stones, relative obstruction loosely suggested by HIDA result today); peptic; undertreated constipation, MALS, other ischemic, functional. Plan -Continue IV Protonix, Pepcid 20 mg BID & Carafate before meals and at bedtime -Eliminate/prevent constipation as best as possible -Observe p.o. liquid tolerance and symptom control; if improved and stable could discharge on p.o. regimen and arrange follow-up -Further recommendations pending clinical course if not improving; could consider MRCP, vascular evaluation, surgical evaluation for cholecystectomy History of Present Illness Reason for Consultation: Nausea Attending Physician: Ilya Amaya MD History of Present Illness Patient is a 68 yo female with acute on chronic nausea. She was in the ED at [facility] on 06/06/24 for epigastric abdominal pain. Reportedly she had a CT that indicated constipation and gallstones. She was told she may have gastritis, PUD, & esophagitis. She was started on Omeprazole 20 mg daily, Pepcid 20 mg QHS, and Carafate 1 gm QID. She had been using Pepto too. She presented to the outpatient GI clinic on 06/09/24 and saw Kingston Dow PA-C. She was hypotensive and reported she felt dizzy so then went to the ED at [facility]. She had a CT scan of the abdomen/pelvis that was unremarkable (stones are actually seen in gallbladder on review of images). US showed cholelithiasis, but otherwise normal. She notes postprandial nausea. No vomiting. Appetite decreased due to this. LFTs unremarkable. She takes CBD daily for the past 4 months. Has a fairly long history of GI/abdominal issues. Dates typical GERD symptoms along with epigastric burning to her early 40s; generally good response to preventative control with PPI acid suppression. She had an EGD in 2021 that was performed for nausea. She was noted to have gastritis with punctate ulcerations; gastric biopsies negative, but no findings to explain the severity of her symptoms at that time. She had used some NSAIDs prior to that time but little to none since. She improved then gradually transitioned off PPI due to H2 blockers so as not to use PPI long-term. During one of her GI evaluations at [facility], the possibility of MALS was raised blood follow-up unclear. She also had bouts of diverticulitis in the past; latest colonoscopy was also in 2021 and showed diverticulosis only. The longstanding typical GERD symptoms of epig astric and chest burning have remained generally well-controlled. But, she says over the last several months, she has developed a different mid left abdominal deep ache that seems different than her prior symptoms. It has typically been intermittent and short-lived, sometimes associated with eating and/or the active bowel movements (he has a partially treated constipation tendency and has also h ad evaluation for ? dyssynergic defecation/rectocele). There typically was no nausea with the left sided abdominal pain until this past week when the pain became more persistent and nausea more prominent, leading to this admission. Allergies Allergy/AdvReac Type Severity Reaction Status Date / Time rimegepant [From Nurtec ODT] Allergy Severe Nausea, Verified 06/09/24 17:26 migraine estrogens, conjugated Allergy Intermediate VAG Verified 06/09/24 17:26 BURNING AND RASH [id number] Allergy Intermediate rash and Verified 06/09/24 17:26 [From Ajovy Syringe] not feeling well sumatriptan Allergy Intermediate Chest Pain Verified 06/09/24 17:26 [id number] Allergy Mild Rash Verified 06/09/24 17:26 [From Emgality Pen] nickel Allergy Mild redness, Verified 06/09/24 17:26 swelling, itching with EARRINGS lamotrigine [From Lamictal] AdvReac Severe hypotension, Verified 06/09/24 17:26 palpitations birch trees Allergy Unknown Unknown Uncoded 06/09/24 17:26 sycamore tree Allergy Unknown Unknown Uncoded 06/09/24 17:26 Home Medications Medication Instructions Recorded Confirmed Type cholecalciferol (vitamin D3) 25 25 mcg PO QPM 09/07/22 06/09/24 History mcg (1,000 unit) capsule magnesium oxide 400 mg (241.3 mg 400 mg PO QPM 09/07/22 06/09/24 History magnesium) tablet aspirin 81 mg tablet,delayed 81 mg PO HS 12/20/22 06/09/24 History release riboflavin (vitamin B2) 100 mg 200 mg PO QPM 12/20/22 06/09/24 History tablet melatonin 3 mg tablet 3 mg PO HS 12/24/22 06/09/24 History acyclovir 200 mg capsule 200 mg PO QPM #90 caps 06/11/23 06/09/24 Rx metoprolol succinate 25 mg 12.5 mg (1/2 x 25 mg) PO QPM #90 06/11/23 06/09/24 Rx tablet,extended release 24 hr tabs venlafaxine 25 mg tablet 25 mg PO BID #180 tabs 06/11/23 06/09/24 Rx dtbxpfnqpv-wcqzpxnpygjce-ushruxap 1 cap PO Q8H PRN pain #30 caps 08/01/23 06/09/24 Rx 50 mg-300 mg-40 mg capsule (Fioricet) ketoconazole 2 % shampoo 1 applic topical .COMPLEX #120 mL 11/05/23 06/09/24 Rx CBD 2 tab PO HS 11/11/23 06/09/24 History mecobalamin (vitamin B12) 500 mcg 500 mcg PO DAILY 11/11/23 06/09/24 History chewable tablet triamcinolone acetonide 55 mcg 2 spray intranasal DAILY PRN Nasal 11/11/23 06/09/24 History nasal spray aerosol (Nasacort) Congestion ondansetron 4 mg disintegrating 4 mg PO Q8H PRN nausea and 06/08/24 06/09/24 Rx tablet vomiting #20 tabs sucralfate 1 gram tablet 1 g PO ACHS #136 tabs 06/08/24 06/09/24 Rx famotidine 20 mg tablet 40 mg PO BID 06/09/24 06/09/24 History omeprazole 20 mg capsule,delayed 40 mg PO HS 06/09/24 06/09/24 History release zolpidem 5 mg tablet (Ambien) 5 mg PO HS PRN Sleep 06/09/24 06/09/24 History Patient History Medical History Hiatal hernia GERD (gastroesophageal reflux disease) controlled, stable per pt History of non-ST elevation myocardial infarction (NSTEMI) 10/2021-no stents TMJ (temporomandibular joint disorder) denies clicking or locking CAD (coronary artery disease) nonobstructive, follows with Dr. 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 HX POLYP AND REMOVED History of colonoscopy History of plastic surgery X3, facial, liposuctions History of cardiac cath [facility] NOV 07 2021...VERY SMALL MILD BLOCKAGE PER PT , NO STENT(S) Status post ectopic Laparoscopy with excision of ectopic Hx of shoulder surgery left, rotator cuff repair 2012 Hx of section Family History Father Non-Hodgkin lymphoma Heart disease Cancer Non-hodgkin's lymphoma Grandfather (Paternal) Lung cancer Cancer Aunt Brain cancer Cancer brain Mother Vascular dementia Grandmother (Maternal) Heart disease Grandfather (Maternal) Heart disease Grandmother (Paternal) Cancer Other No family history of adverse response to anesthesia Denies family history of Ovarian cancer Prostate cancer Myocardial infarction Breast cancer Colorectal cancer Social History Smoking Status: Never smoker Second Hand Exposure: Yes (As a child. 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, [employer] How many Children do You have: 1 Feels Safe at Home: Yes Childhood Exposure to Second-Hand Smoke: Yes Diet: regular caffeine: Yes during the past year weight has: remained stable Dental Care, Regularly: Yes Physical Activity Frequency: Does not Exercise Seatbelt Use: always Sunscreen Use: Yes Do you think of yourself as: straight/heterosexual Sexual Activity: has been sexually active within the last 12 months Gender Identity: Female Assistive Devices: Glasses Review of Systems Constitutional: no fever and no chills Gastrointestinal: + abdominal pain and + nausea Psychiatric: no problem reported Physical Exam Constitutional: well developed Respiratory: normal respiratory effort Gastrointestinal (Abdomen): normal bowel sounds, soft, nontender, no hepatosplenomegaly Psychiatric: Orientation: alert and oriented x 3 Results & Data Vital Signs (Past 12 Hours) Vital Signs Temp Pulse Pulse Resp BP Pulse Ox O2 Del Method 06/10/24 11:03 36.8 C 75 18 121/70 97 Room Air 06/10/24 10:58 Room Air 06/10/24 09:10 69 06/10/24 07:24 36.6 C 71 18 116/70 96 Room Air 06/10/24 03:44 36.5 C 66 20 99/59 L 94 Room Air 06/09/24 23:40 36.5 C 72 20 115/67 93 Room Air PG Care Time/CCT Total # of Minutes Spent Total Time Spent with Patient: Total time spent is greater than 50% in coordination of care (as documented) at patient's floor/unit and/or counseling patient: Coding Level of Care Code 22499 INT INP/OBS CARE 3/75MIN Diagnoses Nausea R11.0 Epigastric abdominal pain R10.13
--- NOTE | 2024-06-10 15:49 | Nuclear Medicine Report ---
NUCLEAR MEDICINE HEPATOBILIARY SCAN CLINICAL HISTORY: Abdominal pain. COMPARISON: CT of the abdomen and pelvis and right upper quadrant ultrasound June 09, 2024. TECHNIQUE: 5.1 mCi of technetium 99m Choletec IV was injected at 1:34 PM on June 10, 2024. Immedia tely following injection, imaging of the abdomen was carried out for 60 minutes in the anterior proje ction. FINDINGS: Hepatic uptake of radiotracer is prompt and homogeneous. Activity is identified within the gallbladder at 10 minutes. Common bile duct activity is confidently identified at 60 minutes. Small bowel activity was identified at 120 minutes. IMPRESSION: 1. No evidence for acute cholecystitis. 2. Delayed visualization of small bowel activity, a nonspecific finding which can be due to sphincter spasm, sphincter dysfunction or partial common bile duct obstruction. Findings could be correlated w ith obstructive liver function tests. ACT 112: Negative or not required by law. Electronically signed by: Jignesh Fontenot M.D. 06/10/2024 3:47 PM
[2024-06-10] MEDS: POLYETHYLENE (MIRALAX) 17 GM PACK PO SCH (21:14)
[2024-06-10] MEDS: SENNA 8.6 MG TAB PO SCH (21:16)
[2024-06-10] MEDS: DOCUSATE SODIUM 100 MG CAP PO SCH (21:16)
[2024-06-10] MEDS: ZOLPIDEM TARTRATE 5 MG TAB PO PRN (21:16)
[2024-06-11 06:34] LABS: Hematocrit (blood only) 34.2 % (37.0-47.0); Hemoglobin 11.2 g/dl (12.0-16.0); Mean Corpuscular Hemoglobin 27.2 pg (25.0-34.0); Mean Corpuscular Hgb Conc 32.7 g/dL (32.0-36.0); Mean Platelet Volume 10.5 fL (9.4-12.4); Platelet Count 317 K/uL (130-400); RDW Coefficient of Variation 13.2 % (11.5-14.5); RDW Standard Deviation 39.9 fL (36.4-46.3); Red Blood Count 4.12 M/uL (4.20-5.40); White Blood Count 7.72 K/ul (4.8-10.8)
[2024-06-11] MEDS: ONDANSETRON INJ 2 MG/ML 2 ML VIAL IV PRN (06:50)
--- NOTE | 2024-06-11 07:14 | Hospitalist Progress Note ---
Date of Service June 11, 2024 Assessment & Plan (1) Abdominal pain: Plan 68-year-old female PMHx diverticulitis, renal calculi, CAD, PVCs, celiac artery compression, insomnia presenting for abdominal pain x 4-5 days. ED evaluation reveals no leukocytosis, stable H&H 11.8/36.5, sodium 133, LFTs WNL, lipase 33; UA WNL with infection; BioFire negative; CTAP without acute findings; CXR without acute findings; gallbladder ultrasound cholelithiasis without evidence of acute cholecystitis, small hepatic cyst unchanged, unchanged fatty infiltrate of liver; EKG NSR at 63 bpm. Sent by GI office, BP 88/58 and recheck 93/58 with reports of feeling dizzy. Worse after eating reported. * 4 recent visit regarding abdominal pain, initially [facility] (06/06) for concerns of PUD/gastritis/esophagitis and discharged on Carafate, pepcid, and PPI. Evaluated by PCP 06/08 and trialed on zofran in addition. GI + general surgery evaluate patient for gallstones. Seen by GI day of arrival and increased famotidine, omeprazole, carafate, and started miralax; was found to be hypotensive during appointment. CT without obstruction or acute findings, revealing moderate retained stool. History of gastritis, celiac artery compression syndrome, and diverticulitis. Suspect symptoms combination of such. #Abdominal pain Hx PUD. Pain worse after eating since this past Saturday. Denied recent NSAIDs, no blood/melena reported and hgb stable. ?PUD, celiac artery compression? sphincter of Oddi dysfunction/CBD obstruction vs other? Imaging at [facility] w/ small stones/mild constipation but no acute keshia CTAP on admission no acute keshia, mild constipation RUQ US w/ stones but no actue keshia, notes small cyst LFTs remain wnl, lipase 33 HIDA scan on 06/10 with no acute keshia but did note Delayed visualization of small bowel activity, a nonspecific finding which can be due to sphincter spasm, sphincter dysfunction or partial common bile duct obstruction. Findings could be correlated with obstructive liver function tests. ?sphincter of Oddi dysfunction vs other? Had advanced diet to full liquids this morning but worsening pain/nausea (but no vomiting) and backed to clear liquids for now and remains on PPI BID, pepcid. Carafate on hold as unable to toletate. Bentyl not helpful for patient Bowel regimen continued, small BM yesterday. Agreeable to suppository today/monitor Waiting determination from GI about MRCP vs EGD Monitor repeat exam, appreciate assistance/recs from GI Ongoing inpatient stay Hypotension - in GI office, IVF provided and tolerating clears and will remain off for now and BPs remaining stable, 131/66 at present #Palpitations reported issue, TSH wnl in the past 30 days and remains on metoprolol. tele stable/HR controlled #Insomnia - Ambien continued #Migraines Fioricet, Venlafaxine, Riboflavin, magnesium avialable, does report some headache with carafate but discussed continuing however will place on hold for now improvement in headache today VTE prophylaxis: SCDs, avoid chemoproph for now w/ concerns possible PUD vs other/possible EGD in AM. Ambulation encouraged Dispo: continued inpatient stay, possible EGD vs MRCP pending GI evaluation. Continue clear liquid diet for now Notable also taking CBD/THC gummies (?ordering online) but does not believe contributing to her acute pain since this past Saturday Admission and Anticipated Discharge Date Admission Date: June 09, 2024 Supervising Physician Co-Signing Physician Notes The patient was not seen by me. The chart was reviewed. Case discussed with RAY Ghotra. Agree with assessment and plan Subjective EVal around lunch, had increased pain following full liquid diet immediately after eating. Diet backed to fulls, ongoing issue but a little better. Waiting determination from GI about MRCP vs EGD. No autumn on exam but could consider if noted on EGD. Discussed HIDA scan, possible sphincter of oddi dysfunction. Moved bowels, small yesterday. Remains on bowel regimen. Agreeable to suppository to help get things moving as well and will monitor. Physical Exam 2 Physical Exam: General: 68 yo female sitting up in bed, eating a popsicle, reporting ongoing pain but better than this morning at least Head atraumatic, normocephalic, mmm, trachea midline Resp: clear, no wheezing/rales, on room air CV; RRR, no m/r/g, no pitting edema GI: +BS, +tenderness epigastric/RUQ, slight to LLQ/palpable stool but remains soft and without guarding/rigidity MSK/Neuro: nonfocal, moves all extremities, not confused Psych: AOx3 Results & Data Results & Data Vital Signs (Past 12 Hours) Vital Signs Temp Pulse Pulse Pulse Resp BP Pulse Ox 06/11/24 06:48 63 06/11/24 03:40 36.4 C L 68 16 115/58 L 96 06/10/24 22:38 36.8 C 63 16 107/64 96 06/10/24 21:59 70 06/10/24 20:15 79 O2 Del Method 06/11/24 06:48 06/11/24 03:40 Room Air 06/10/24 22:38 Room Air 06/10/24 21:59 06/10/24 20:15 Laboratory Results 06/11/24 06:07 06/11/24 06:07 LFTs wnl Iron studies wnl Diagnostic Findings Hepatobiliary Scan Nuclear Medicine 06/10/24 10:25 NUCLEAR MEDICINE HEPATOBILIARY SCAN CLINICAL HISTORY: Abdominal pain. COMPARISON: CT of the abdomen and pelvis and right upper quadrant ultrasound June 09, 2024. TECHNIQUE: 5.1 mCi of technetium 99m Choletec IV was injected at 1:34 PM on June 10, 2024. Immediately following injection, imaging of the abdomen was carried out for 60 minutes in the anterior projection. FINDINGS: Hepatic uptake of radiotracer is prompt and homogeneous. Activity is identified within the gallbladder at 10 minutes. Common bile duct activity is confidently identified at 60 minutes. Small bowel activity was identified at 120 minutes. IMPRESSION: 1. No evidence for acute cholecystitis. 2. Delayed visualization of small bowel activity, a nonspecific finding which can be due to sphincter spasm, sphincter dysfunction or partial common bile duct obstruction. Findings could be correlated with obstructive liver function tests. ACT 112: Negative or not required by law. Electronically signed by: Jignesh Fontenot M.D. 06/10/2024 3:47 PM PG Care Time/CCT Total # of Minutes Spent Total Time Spent with Patient: Total time spent is greater than 50% in coordination of care (as documented) at patient's floor/unit and/or counseling patient: Coding Level of Care Code 06809 SUB INP/OBS CARE 3/50MIN Diagnoses Abdominal pain R10.9
[2024-06-11 07:15] LABS: Ferritin 64.2 ng/ml (8-388)
[2024-06-11 07:40] LABS: Albumin Level 3.7 gm/dl (3.4-5.0); BUN Creatinine Ratio 8.5 (10-20); Bilirubin Direct 0.1 mg/dl (0-0.2); Bilirubin,Total 0.5 mg/dl (0.2-1.0); Calcium 8.6 mg/dl (8.6-10.3); Creatinine Clr Calc Pharmacy 55.6 ml/min; Total Protein 5.9 gm/dl (6.0-8.3)
[2024-06-11] MEDS: DICYCLOMINE HCL 10 MG CAP PO PRN (09:15)
[2024-06-11] MEDS: ACETAMINOPHEN 500 MG TAB PO PRN (09:16)
--- NOTE | 2024-06-11 11:16 | Gastroenterology Progress Note ---
<Statement entered by Ziggy Means MD - 06/11/24 17:11> I have reviewed the history, physical exam, lab and imaging findings as dictated by the mid-level provider, made any necessary modifications, and agree with the stated assessment and recommendations. A total of 35 minutes was spent in the review, direct observation, decision making and discussion of this case with the patient/family and other providers. Ziggy Means MD Date of Service June 11, 2024 Assessment & Plan (1) Nausea: (2) Acute upper abdominal pain: Plan -Continue IV Protonix and Famotidine -Plan for EGD & MRCP Admission and Anticipated Discharge Date Admission Date: June 09, 2024 Subjective Patient is a 68 yo female with nausea and epigastric pain. HIDA reviewed yesterday with findings of uncertain significance. Patient's labs largely unremarkable. She notes nausea & worsening epigastric pain today. She cannot tolerate the Carafate. She continues on IV Protonix & Famotidine. Review of Systems Gastrointestinal: + abdominal pain and + nausea Physical Exam Constitutional: well developed Respiratory: normal respiratory effort Cardiovascular: Rate/Rhythm: regular rate Gastrointestinal (Abdomen): normal bowel sounds, soft, nontender, no hepatosplenomegaly Psychiatric: Orientation: alert and oriented x 3 Results & Data Results & Data Vital Signs (Past 12 Hours) Vital Signs Temp Pulse Pulse Resp BP Pulse Ox O2 Del Method 06/11/24 07:35 36.7 C 64 17 118/70 97 Room Air 06/11/24 06:48 63 06/11/24 03:40 36.4 C L 68 16 115/58 L 96 Room Air PG Care Time/CCT Total # of Minutes Spent Total Time Spent with Patient: Total time spent is greater than 50% in coordination of care (as documented) at patient's floor/unit and/or counseling patient: Coding Level of Care Code 96337 SUB INP/OBS CARE 3/50MIN Diagnoses Nausea R11.0 Acute upper abdominal pain R10.10
[2024-06-11] MEDS: bisacodyL 10 MG SUPP PR STA (12:57)
[2024-06-11] MEDS: LACTATED RINGER'S 500 ML IV SCH (22:57)
[2024-06-11] MEDS: PROCHLORPERAZINE 5 MG in SYRINGE 4 ML IV ONE (22:57)
--- NOTE | 2024-06-12 07:59 | Hospitalist Progress Note ---
Date of Service June 12, 2024 Assessment & Plan (1) Abdominal pain: Plan 68-year-old female PMHx diverticulitis, renal calculi, CAD, PVCs, celiac artery compression, insomnia presenting for abdominal pain x 4-5 days. ED evaluation reveals no leukocytosis, stable H&H 11.8/36.5, sodium 133, LFTs WNL, lipase 33; UA WNL with infection; BioFire negative; CTAP without acute findings; CXR without acute findings; gallbladder ultrasound cholelithiasis without evidence of acute cholecystitis, small hepatic cyst unchanged, unchanged fatty infiltrate of liver; EKG NSR at 63 bpm. Sent by GI office, BP 88/58 and recheck 93/58 with reports of feeling dizzy. Worse after eating reported. * 4 recent visit regarding abdominal pain, initially [facility] (06/06) for concerns of PUD/gastritis/esophagitis and discharged on Carafate, pepcid, and PPI. Evaluated by PCP 06/08 and trialed on zofran in addition. GI + general surgery evaluate patient for gallstones. Seen by GI day of arrival and increased famotidine, omeprazole, carafate, and started miralax; was found to be hypotensive during appointment. CT without obstruction or acute findings, revealing moderate retained stool. History of gastritis, celiac artery compression syndrome, and diverticulitis. Suspect symptoms combination of such. #Abdominal pain Hx PUD. Pain worse after eating since this past Saturday. No recent NSAID use (but does have Fioricet for migraines) but no bleeding/melena reported and hgb stable. No leukocytosis/fever or significant electrolyte abn Prior [facility] CTAP w/ small stones, no keshia. Similar finding on admission CTAP, RUQ w/o stones noted but also no acute keshia (notes small hepatic cyst) LFTs remain wnl and lipase was 33 GI consulted Remains on PPI and pepcid BID. Carafate on hold per patient preference HIDA completed 06/11 without acute keshia but noted delayed visualization of small bowel activity, nonspecific but ?sphincter spasm/dysfunction or partial CBD obstruction could be related NPO at midnight, IVF ordered MRCP for this morning without evidence for acute keshia/biliary dilatation or pancreatic duct dilatation. ?passed stone (reports sister passed one in the past). Planning for EGD this afternoon for additional eval, further recs pending but patient does appear improved and ?if needed time for medications to work. Did move bowels as well (now reporting was loose, probably from prior constipation, ?underling irritable bowel) Possible dc in AM pending EGD/tolerance of diet Hypotension - in GI office, resolved w/ IVF and continues while NPO for EGD. BP 120/53 #Palpitations reported issue, TSH wnl in the past 30 days and remains on metoprolol. tele stable/HR controlled #Insomnia Ambien continued, reported better sleep last night #Migraines Fioricet, Venlafaxine, Riboflavin, magnesium avialable, does report some headache with carafate and continues on hold improvement in headache today and better sleep last evening VTE prophylaxis: SCDs, avoid chemoproph for now w/ concerns possible PUD vs other/possible EGD in AM. Ambulation encouraged Dispo: continued inpatient stay, EGD this afternoon and further recs pending however hopeful dc 06/13 pending course Admission and Anticipated Discharge Date Admission Date: June 09, 2024 Supervising Physician Co-Signing Physician Notes The patient was not seen by me. The chart was reviewed. Case discussed with RAY Ghotra. Agree with assessment and plan Subjective Eval this morning, visiting with her neighbor. Less painful today but still having epigastric discomfort but less tender on exam. Moved bowels, then diarrhea, can occur after constipation. Plan for EGD this afternoon, IVF continued and pending results will order diet/consider dc tomorrow. Patient anxious about dc too early and discussed will see how the course goes but also possible passed stone. Interestingly , she notes her sister has passed a stone in the past as well. Physical Exam 2 Physical Exam: General: 68 yo female visiting with her roommate, appears better today but ongoing epigastric pain HEENT: Head atraumatic, normocephalic, mm improved trachea midline Resp: clear, no wheezing/rales, on room air CV; RRR, no m/r/g, no pitting edema GI: +BS, decreased epigastric tenderness, no overt guarding/rebound and abdomen remains SOFT MSK/Neuro: nonfocal, moves all extremities, not confused Psych: AOx3, anxious at times Results & Data Results & Data Vital Signs (Past 12 Hours) Vital Signs Temp Pulse Pulse Resp BP Pulse Ox O2 Del Method 06/12/24 07:53 36.6 C 66 18 95/62 L 96 Room Air 06/12/24 07:00 63 06/12/24 03:51 36.5 C 61 16 112/69 95 Room Air 06/11/24 23:35 70 06/11/24 23:32 36.5 C 66 18 131/79 94 Room Air Laboratory Results 06/11/24 06:07 06/12/24 08:17 LFTs wnl Diagnostic Findings Cholangiopancreatography MRI 06/12/24 07:18 MRCP CLINICAL HISTORY: epigastric pain; abnormal HIDA TECHNIQUE: Utilizing a 3 Noemí magnet and dedicated coil, multiplanar, multiecho imaging of the upper abdomen was performed utilizing heavily T2 weighted pulsing sequences without IV contrast. COMPARISON STUDY: CT of the abdomen and pelvis and right upper quadrant ultrasound June 09, 2024. FINDINGS: There is no intra or extrahepatic biliary ductal dilatation. The common bile duct measures 5 mm in caliber. No common bile duct calculi are identified. Course and caliber of the main pancreatic duct are normal. The small calcified gallstones on CT of June 09, 2024 are not well-visualized by MRI. No gallbladder wall thickening. No pericholecystic fluid is present. A 1.7 cm right hepatic lobe cyst is noted. There are no suspicious hepatic lesions on unenhanced exam. Spleen, adrenal glands, kidneys and pancreas are unremarkable. There is no hydronephrosis. No abdominal lymphadenopathy or ascites is present. Caliber of visualized small and large bowel are normal. IMPRESSION: 1. No biliary ductal dilatation. No common bile duct calculi identified. 2. No pancreatic ductal dilatation. 3. Small calcified gallstones on CT of June 09, 2024 not well-visualized by MRI. No evidence for acute cholecystitis. ACT 112: Negative or not required by law. Electronically signed by: Jignesh Fontenot M.D. 06/12/2024 10:45 AM PG Care Time/CCT Total # of Minutes Spent Total Time Spent with Patient: Total time spent is greater than 50% in coordination of care (as documented) at patient's floor/unit and/or counseling patient: Coding Level of Care Code 88158 SUB INP/OBS CARE 3/50MIN Diagnoses Abdominal pain R10.9
[2024-06-12] MEDS: FAMOTIDINE 20MG IV PUSH 20 MG/5 ML SYR IV SCH (09:11)
[2024-06-12 09:28] LABS: Albumin Level 4.1 gm/dl (3.4-5.0); BUN Creatinine Ratio 5.8 (10-20); Bilirubin Direct 0.1 mg/dl (0-0.2); Bilirubin,Total 0.6 mg/dl (0.2-1.0); Calcium 8.9 mg/dl (8.6-10.3); Creatinine Clr Calc Pharmacy 50.5 ml/min; Magnesium 2.1 mg/dl (1.7-2.4); Potassium 3.9 mmol/L (3.5-5.1); Total Protein 6.5 gm/dl (6.0-8.3)
--- NOTE | 2024-06-12 10:46 | Magnetic Resonance Report ---
MRCP CLINICAL HISTORY: epigastric pain; abnormal HIDA TECHNIQUE: Utilizing a 3 Noemí magnet and dedicated coil, multiplanar, multiecho imaging of the upper abdomen was performed utilizing heavily T2 weighted pulsing sequences without IV contrast. COMPARISON STUDY: CT of the abdomen and pelvis and right upper quadrant ultrasound June 09, 2024. FINDINGS: There is no intra or extrahepatic biliary ductal dilatation. The common bile duct measures 5 mm in caliber. No common bile duct calculi are identified. Course and caliber of the main pancreati c duct are normal. The small calcified gallstones on CT of June 09, 2024 are not well-visualized by MRI. No gallbladder wall thickening. No pericholecystic fluid is present. A 1.7 cm right hepatic lobe cyst is noted. There are no suspicious hepatic lesions on unenhanced exam. Spleen, adrenal glands, k idneys and pancreas are unremarkable. There is no hydronephrosis. No abdominal lymphadenopathy or asc ites is present. Caliber of visualized small and large bowel are normal. IMPRESSION: 1. No biliary ductal dilatation. No common bile duct calculi identified. 2. No pancreatic ductal dilatation. 3. Small calcified gallstones on CT of June 09, 2024 not well-visualized by MRI. No evidence for acu te cholecystitis. ACT 112: Negative or not required by law. Electronically signed by: Jignesh Fontenot M.D. 06/12/2024 10:45 AM
--- NOTE | 2024-06-12 10:47 | History & Physical Bridge Note ---
<Statement entered by Ziggy Means MD - 06/12/24 13:37> I have reviewed the history, physical exam, lab and imaging findings as dictated by the mid-level provider, made any necessary modifications, and agree with the stated assessment and recommendations. A total of 10 minutes was spent in the review, direct observation, decision making and discussion of this case with the patient/family and other providers. Ziggy Means MD Date of Service June 12, 2024 History & Physical Bridge Note I have reviewed the History & Physical and in the interval since the performance of the History & Physical I have noted the following changes of clinical significance: Patient is off the floor for MRCP at present. Keep NPO for EGD for further evaluation of abdominal pain & nausea.
[2024-06-12] MEDS: LACTATED RINGER'S 1,000 ML IV SCH (11:10)
--- NOTE | 2024-06-12 13:49 | Anesthesiology Consultation ---
Date of Service June 12, 2024 Assessment & Plan Chart Review Chart Review: Acceptable Risk for Surgery Consults Requested none History Surgery Operation Date: 06/12/24 16:30 Proposed Procedures p Esophagogastroduodenoscopy Dr. Means - Ziggy Means MD Height/Weight Height: 5 ft 2 in Weight: 80 kg Allergies Allergy/AdvReac Type Severity Reaction Status Date / Time rimegepant [From [facility] ODT] Allergy Severe Nausea, Verified 06/09/24 17:26 migraine estrogens, conjugated Allergy Intermediate VAG Verified 06/09/24 17:26 BURNING AND RASH [id number] Allergy Intermediate rash and Verified 06/09/24 17:26 [From Ajovy Syringe] not feeling well sumatriptan Allergy Intermediate Chest Pain Verified 06/09/24 17:26 [id number] Allergy Mild Rash Verified 06/09/24 17:26 [From Emgality Pen] nickel Allergy Mild redness, Verified 06/09/24 17:26 swelling, itching with [place] lamotrigine [From Lamictal] AdvReac Severe hypotension, Verified 06/09/24 17:26 palpitations birch trees Allergy Unknown Unknown Uncoded 06/09/24 17:26 sycamore tree Allergy Unknown Unknown Uncoded 06/09/24 17:26 Medications Home Medications Medication Instructions Recorded Confirmed Last Taken cholecalciferol (vitamin D3) 25 25 mcg PO QPM 09/07/22 06/09/24 06/08/24 mcg (1,000 unit) capsule magnesium oxide 400 mg (241.3 mg 400 mg PO QPM 09/07/22 06/09/24 06/08/24 magnesium) tablet aspirin 81 mg tablet,delayed 81 mg PO HS 12/20/22 06/09/24 06/08/24 release riboflavin (vitamin B2) 100 mg 200 mg PO QPM 12/20/22 06/09/24 06/08/24 tablet melatonin 3 mg tablet 3 mg PO HS 12/24/22 06/09/24 06/08/24 acyclovir 200 mg capsule 200 mg PO QPM #90 caps 06/11/23 06/09/24 06/08/24 metoprolol succinate 25 mg 12.5 mg (1/2 x 25 mg) PO QPM #90 06/11/23 06/09/24 06/08/24 tablet,extended release 24 hr tabs venlafaxine 25 mg tablet 25 mg PO BID #180 tabs 06/11/23 06/09/24 06/09/24 08:00 [id number]-ssmbjatohaikq-oyewvmaf 1 cap PO Q8H PRN pain #30 caps 08/01/23 06/09/24 Unknown 50 mg-300 mg-40 mg capsule (Fioricet) ketoconazole 2 % shampoo 1 applic topical .COMPLEX #120 mL 11/05/23 06/09/24 Unknown CBD 2 tab PO HS 11/11/23 06/09/24 06/08/24 mecobalamin (vitamin B12) 500 mcg 500 mcg PO DAILY 11/11/23 06/09/24 06/08/24 chewable tablet triamcinolone acetonide 55 mcg 2 spray intranasal DAILY PRN Nasal 11/11/23 06/09/24 Unknown nasal spray aerosol (Nasacort) Congestion ondansetron 4 mg disintegrating 4 mg PO Q8H PRN nausea and 06/08/24 06/09/24 Unknown tablet vomiting #20 tabs sucralfate 1 gram tablet 1 g PO ACHS #136 tabs 06/08/24 06/09/24 06/09/24 12:00 famotidine 20 mg tablet 40 mg PO BID 06/09/24 06/09/24 06/09/24 08:00 omeprazole 20 mg capsule,delayed 40 mg PO HS 06/09/24 06/09/24 06/08/24 release zolpidem 5 mg tablet (Ambien) 5 mg PO HS PRN Sleep 06/09/24 06/09/24 Unknown Active Medications Generic Name Dose Route Start Last Admin Trade Name Freq PRN Reason Stop Dose Admin Acetaminophen 1,000 mg 06/11/24 07:19 06/11/24 16:12 Acetaminophen 500 Mg Tab PO 07/11/24 07:18 500 mg Q8H PRN Administration fever pain or headache Acyclovir 200 mg 06/09/24 21:37 06/11/24 22:08 Acyclovir 200 Mg Cap PO 07/09/24 21:36 Not Given QPM HALEY Aspirin 81 mg 06/09/24 21:37 06/11/24 22:08 Aspirin 81 Mg Ectab PO 07/09/24 21:36 Not Given HS HALEY Cyanocobalamin 500 mcg 06/10/24 09:00 06/12/24 11:31 Cyanocobalamin (B-12) 500 Mcg Tablet PO 07/10/24 08:59 Not Given DAILY HALEY Dicyclomine HCl 10 mg 06/10/24 07:46 06/11/24 09:15 Dicyclomine Hcl 10 Mg Cap PO 07/10/24 08:59 10 mg TID PRN Administration abdominal spasm Docusate Sodium 100 mg 06/10/24 21:00 06/12/24 11:31 Docusate Sodium 100 Mg Cap PO 07/10/24 20:59 Not Given BID HALEY Famotidine 40 mg 06/09/24 21:37 06/11/24 22:08 Famotidine 40 Mg Tablet PO 07/09/24 21:36 Not Given BID HALEY Pantoprazole Sodium 40 mg in 10 mls @ 5 mls/min 06/09/24 21:37 06/12/24 08:47 Protonix IV 07/09/24 21:36 5 mls/min BID HALEY Administration Famotidine 20 mg in 5 mls @ 2.5 mls/min 06/12/24 08:00 06/12/24 09:11 Pepcid 20mg Iv Push IV 07/12/24 07:59 2.5 mls/min Q12H HALEY Administration Lactated Ringer's 1,000 mls @ 70 mls/hr 06/12/24 09:00 06/12/24 12:12 Lr IV 06/13/24 08:59 0 mls/hr .[id number] HALEY Infusion Magnesium Oxide 400 mg 06/09/24 21:37 06/11/24 22:08 Magnesium Oxide 400 Mg Tab PO 07/09/24 21:36 Not Given QPM HALEY Melatonin 3 mg 06/09/24 21:37 06/11/24 22:08 Melatonin 3 Mg Tab PO 07/09/24 21:36 Not Given HS HALEY Metoprolol Succinate 12.5 mg 06/09/24 21:37 06/11/24 22:08 Metoprolol Succ 25mg Ext Rel Tab PO 07/09/24 21:36 Not Given QPM HALEY Ondansetron HCl 4 mg 06/09/24 21:37 06/11/24 21:38 Ondansetron Inj 2 Mg/Ml 2 Ml Vial IV 07/09/24 21:36 4 mg Q6H PRN Administration Nausea Polyethylene Glycol 17 gm 06/10/24 21:00 06/12/24 08:20 Polyethylene (Miralax) 17 Gm Pack PO 07/10/24 20:59 Not Given BID HALEY Sennosides 8.6 mg 06/10/24 21:00 06/11/24 22:08 Senna 8.6 Mg Tab PO 07/10/24 20:59 Not Given HS HALEY Sucralfate 1 gm 06/09/24 21:37 06/11/24 06:35 Sucralfate 1 Gm Tab PO 07/09/24 21:36 1 gm ACHS HALEY Administration Venlafaxine HCl 25 mg 06/09/24 21:37 06/12/24 11:32 Venlafaxine Hcl 50 Mg Tab PO 07/09/24 21:36 Not Given BID HALEY Zolpidem Tartrate 5 mg 06/09/24 21:37 06/11/24 23:07 Zolpidem Tartrate 5 Mg Tab PO 07/09/24 21:36 5 mg HS PRN Administration Sleep NPO Date Last Intake of Fluids: 06/11/24 Time Last Intake of Fluids: 21:00 Date Last Intake of Solids: 06/09/24 Time Last Intake of Solids: 08:00 Past Medical History Medical History Hiatal hernia GERD (gastroesophageal reflux disease) controlled, stable per pt History of non-ST elevation myocardial infarction (NSTEMI) 10/2021-no stents TMJ (temporomandibular joint disorder) denies clicking or locking CAD (coronary artery disease) nonobstructive, follows with Dr. Mariely CARABALLO cardiology Heart palpitations remote hx-controlled per pt with caffeine and alcohol avoidance Thyroid nodule monitoring by PCP Gastritis hx, 2021, no current/recent issues Migraines hx Tachycardia HX Recurrent herpes simplex not currently active Hx of ectopic 1985 Past Family History Family History Father Non-Hodgkin lymphoma Heart disease Cancer Non-hodgkin's lymphoma Grandfather (Paternal) Lung cancer Cancer Aunt Brain cancer Cancer brain Mother Vascular dementia Grandmother (Maternal) Heart disease Grandfather (Maternal) Heart disease Grandmother (Paternal) Cancer Other No family history of adverse response to anesthesia Denies family history of Ovarian cancer Prostate cancer Myocardial infarction Breast cancer Colorectal cancer Past Surgical History Surgical History History of bilateral cataract extraction History of endoscopy MULTIPLE , ? HX POLYP AND REMOVED History of colonoscopy History of plastic surgery X3, facial, liposuctions History of cardiac cath [facility] NOV 07 2021...VERY SMALL MILD BLOCKAGE PER PT , NO STENT(S) Status post ectopic Laparoscopy with excision of ectopic Hx of shoulder surgery left, rotator cuff repair 2013 Hx of section Social History Smoking Status: Never smoker Do You Dip or Chew Tobacco: No Hx Alcohol Use: No Alcohol type: beer alcohol intake frequency: holidays/special occasions only Hx Substance Use: Yes substance use type: other Substance Use Type Other:: THC gummies Last Used Substance: Days (ago) Physical Exam Vital Signs Last Vital Signs Temp 36.4 C L 06/12/24 12:58 Pulse 70 06/12/24 12:58 Resp 16 06/12/24 12:58 BP 138/56 L 06/12/24 12:58 Pulse Ox 93 06/12/24 12:58 O2 Del Method Room Air 06/12/24 12:58 Testing Laboratory Results 06/11/24 06:07 06/12/24 08:17 Urine Color Yellow 06/09/24 14:00 Urine Appearance Clear (Clear) 06/09/24 14:00 Urine pH 6.0 (4.5-7.5) 06/09/24 14:00 Ur Specific [place] 1.018 (1.000-1.030) 06/09/24 14:00 Urine Protein Negative (Negative) 06/09/24 14:00 Urine Glucose (UA) Negative (Negative) 06/09/24 14:00 Urine Ketones Negative (Negative) 06/09/24 14:00 Urine Nitrite Negative (Negative) 06/09/24 14:00 Ur Leukocyte Esterase 1+ (Negative) H 06/09/24 14:00 Urine WBC (Auto) 0-5 /hpf (0-5) 06/09/24 14:00 Urine RBC (Auto) 0-2 /hpf (0-2) 06/09/24 14:00 U Hyaline Cast (Auto) 0-2 /lpf (0-2) 06/09/24 14:00 U Epithel Cells (Auto) 0-2 /hpf (0-2) 06/09/24 14:00 Urine Bacteria (Auto) None Seen (None Seen) 06/09/24 14:00
--- NOTE | 2024-06-12 14:23 | Anesthesiology Progress Note ---
Date of Service June 12, 2024 Anesthesia Post Procedure Vital Signs Vital Signs: Temp Pulse Pulse Resp BP Pulse Ox O2 Del Method 06/12/24 14:17 77 16 105/61 94 Room Air 06/12/24 12:58 36.4 C L 70 16 138/56 L 93 Room Air 06/12/24 11:40 36.6 C 66 18 120/53 L 91 Room Air 06/12/24 08:00 Room Air 06/12/24 07:53 36.6 C 66 18 95/62 L 96 Room Air 06/12/24 07:00 63 06/12/24 03:51 36.5 C 61 16 112/69 95 Room Air 06/11/24 23:35 70 06/11/24 23:32 36.5 C 66 18 131/79 94 Room Air 06/11/24 19:29 36.6 C 65 18 127/69 93 Room Air 06/11/24 15:44 36.7 C 63 18 118/63 95 Room Air 06/11/24 14:44 78 Pain Intensity Abdomen: Pain Intensity: 2 Transfer of Care Handoff Completed per policy Notes Mental Status: alert / awake / arousable and participated in evaluation Patient Amnestic to Procedure: Yes Nausea / Vomiting: adequately controlled Pain: adequately controlled Airway Patency, RR, SpO2: stable & adequate BP & HR: stable & adequate Hydration State: stable & adequate Anesthetic Complications: no major complications apparent
--- NOTE | 2024-06-12 14:26 | GI REPORT ---
[facility] Patient: ALBERT SELLERS : 1955 Sex at : Female Age: 68 Years Procedure: Upper GI endoscopy Date: 06/12/2024 Attending Physician: Ziggy Means MD Referring MD: Paula Kc MD Indications: - Abdominal pain in the left upper quadrant recent onset; no recent exam - Nausea with vomiting Medications: - Monitored Anesthesia Care Complications: Estimated Blood Loss: - Estimated blood loss: None. Procedure: - The pediatric colonoscope was introduced through the mouth and advanced to the jejunum. - The upper GI endoscopy was accomplished without difficulty. - The patient tolerated the procedure well. Findings: - The examined jejunum was normal. Biopsies were taken with a cold forceps for histology. - Patchy mildly erythematous mucosa was found in the duodenal bulb. No erosions/ulcerations seen. - The exam of the duodenum was otherwise normal. - Biopsies were taken with a cold forceps for histology. - The entire examined stomach was normal. No retained food or fluid. Pylorus patent. A number of benign appearing fundic gland polyps. Gastric biopsies were taken with a cold forceps for histology. - A 2 cm hiatal hernia was present. - A non-obstructing Schatzki ring was found at the gastroesophageal junction along with some distal esophageal scarring. The esophagus was otherwise normal. Impression: - Erythematous bulboduodenopathy. - 2 cm hiatal hernia. - Non-obstructing Schatzki ring. Otherwise normal exam. Recommendation: - Await pathology results. - Observe patient's clinical course. Diet advance as tolerated. - Continue present medications. Procedure Code(s): - 44060, Esophagogastroduodenoscopy, flexible, transoral; with biopsy, single or multiple Diagnosis Code(s): - R10.12, Left upper quadrant pain - R11.2, Nausea with vomiting, unspecified - K31.89, Other diseases of stomach and duodenum - K44.9, Diaphragmatic hernia without obstruction or gangrene - K22.2, Esophageal obstruction CPT(R) - 202 copyright [employer]. All Rights Reserved. The CPT codes, CCI edits and ICD codes generated are intended as suggestions and were generated based on input data. These codes are preliminary and upon plain clothes police officer review may be revised to meet current compliance and payer requirements. The provider is responsible for the final determination of appropriate codes, and modifiers. Ziggy Means MD This document has been electronically signed. Note Initiated:06/12/2024 Note Completed:06/12/2024 2:25 PM \\[id number]
[2024-06-12] MEDS: LIDOCAINE 2% 2 ML VIAL/AMP(20MG/ML) INFIL ONE (15:27)
[2024-06-12] MEDS: PROPOFOL IV EMULSION 10 MG/ML 20 ML VIAL IV ONE (15:27)
--- NOTE | 2024-06-13 07:25 | Hospitalist Progress Note ---
Date of Service June 13, 2024 Assessment & Plan (1) Abdominal pain: Plan 68-year-old female PMHx diverticulitis, renal calculi, CAD, PVCs, celiac artery compression, insomnia presenting for abdominal pain x 4-5 days. ED evaluation reveals no leukocytosis, stable H&H 11.8/36.5, sodium 133, LFTs WNL, lipase 33; UA WNL with infection; BioFire negative; CTAP without acute findings; CXR without acute findings; gallbladder ultrasound cholelithiasis without evidence of acute cholecystitis, small hepatic cyst unchanged, unchanged fatty infiltrate of liver; EKG NSR at 63 bpm. Sent by GI office, BP 88/58 and recheck 93/58 with reports of feeling dizzy. Worse after eating reported. * 4 recent visit regarding abdominal pain, initially [facility] (06/06) for concerns of PUD/gastritis/esophagitis and discharged on Carafate, pepcid, and PPI. Evaluated by PCP 06/08 and trialed on zofran in addition. GI + general surgery evaluate patient for gallstones. Seen by GI day of arrival and increased famotidine, omeprazole, carafate, and started miralax; was found to be hypotensive during appointment. CT without obstruction or acute findings, revealing moderate retained stool. History of gastritis, celiac artery compression syndrome, and diverticulitis. Suspect symptoms combination of [place]. #Abdominal pain Hx PUD. Pain worse after eating since this past Saturday. No recent NSAID use (but does have Fioricet for migraines) but no bleeding/melena reported and hgb stable. No leukocytosis/fever or significant electrolyte abn Prior [facility] CTAP w/ small stones, no keshia. Similar finding on admission CTAP, RUQ w/o stones noted but also no acute keshia (notes small hepatic cyst) LFTs remain wnl and lipase was 33 GI consulted Remains on PPI and pepcid BID. Carafate on hold per patient preference CLEMA completed 06/11 without acute keshia but noted delayed visualization of small bowel activity, nonspecific but ?sphincter spasm/dysfunction or partial CBD obstruction could be related NPO at midnight, IVF ordered MRCP for this morning without evidence for acute keshia/biliary dilatation or pancreatic duct dilatation. ?passed stone (reports sister passed one in the past). Planning for EGD this afternoon for additional eval, further recs pending but patient does appear improved and ?if needed time for medications to work. Did move bowels as well (now reporting was loose, probably from prior constipation, ?underling irritable bowel) Possible dc in AM pending EGD/tolerance of diet 06/13 -- MRCP negative, EGD w/ some erythema but no ulcers. Diet advanced last night to see if improvement. Zofran available. Pepcid/protonix BID Biopsy from EGD pending ?possible dc Hypotension - in GI office, resolved w/ IVF and continues while NPO for EGD. BP 120/53 #Palpitations reported issue, TSH wnl in the past 30 days and remains on metoprolol. tele stable/HR controlled #Insomnia Ambien continued, reported better sleep last night #Migraines Fioricet, Venlafaxine, Riboflavin, magnesium avialable, does report some headache with carafate and continues on hold improvement in headache today and better sleep last evening VTE prophylaxis: SCDs, avoid chemoproph for now w/ concerns possible PUD vs other/possible EGD in AM. Ambulation encouraged Dispo: continued inpatient stay, EGD this afternoon and further recs pending however hopeful dc 06/13 pending course Admission and Anticipated Discharge Date Admission Date: June 09, 2024 Results & Data Results & Data Vital Signs (Past 12 Hours) Vital Signs Temp Pulse Pulse Resp BP Pulse Ox O2 Del Method 06/13/24 07:17 64 06/13/24 03:27 36.5 C 67 16 119/66 97 Room Air 06/12/24 22:36 36.3 C L 63 16 113/67 95 Room Air 06/12/24 21:45 65 PG Care Time/CCT Total # of Minutes Spent Total Time Spent with Patient: Total time spent is greater than 50% in coordination of care (as documented) at patient's floor/unit and/or counseling patient: Coding Diagnoses Abdominal pain R10.9
[2024-06-13 07:50] VITALS: BP 121/72; PULSE 72; RESP 18; TEMP 97.9; O2SAT 96
[2024-06-13] MEDS ORDERED: ONDANSETRON 4 MG OD TAB PO PRN (08:12)
--- NOTE | 2024-06-13 10:42 | Discharge Summary ---
Discharge Summary Date of Service June 13, 2024 Principal Dx & Hospital Course #1 = Principal Diagnosis (1) Abdominal pain: Plan 68-year-old female PMHx diverticulitis, renal calculi, CAD, PVCs, celiac artery compression, insomnia presenting for abdominal pain x 4-5 days. after 4 recent visits to other institutions and [facility] on 06/06 for ongoing epigastric/RUQ pain CTAP without acute findings, CXR negative US GB noted stones, small hepatic cyst unchanged/fatty liver, NO ACUTE ANGELIC EKG NSR 63bpm, no CP Pain reported worse with eating despite PPI once daily/pepcid and carafate by OSH and GI consulted and IVF provided and LFTs remained wnl and lipase 33 and underwent HIDA for further eval which did not note acute angelic but did note "delayed visualization of small bowel activity, nonspecific but ?sphincter spasm/dysfunction or partial CBD obstruction could be related" and MRCP obtained which did NOT show any acute angelic/biliary dilatation or pancreatic duct dilatation. ?passed stone (reports sister passed one in the past). EGD eventually performed 06/12 which did not show any ulceration but some erythema/bulboduodeopathy, small hernia and nonobstructing schatzki ring but otherwise normal Was continued on pepcid BID, protonix BID. Carafate was given but reported issues with headache and was stopped and no ulcer/ok to not continue at [facility] Was advaned to regular food with stable control and had rx for zofran ODT at home per her report and continued protonix 40mg BID and pepcid 20mg PO BID at [facility] and can f/u with PCP/GI for eval any irritable bowel in follow up. Do suspect also has component of anxiety/depression playing a role. Also did report recent purchase THC gummies for her chronic knee pain and prior use CBD and discussed additives to online medications as well as THC can worsen abdo lisa pain/cyclic vomiting/hyperemesis and she is going to plan on stopping taking these in follow up. Notable she did inquire prior to dc about family hx Hodgkin's Lymphoma/brain cancer and some memory issues herself (nonfocal on exam and again, suspect THC recently used could have contributed) but no significant lymphopenia or lymphocytosis on differential and support provided and encouraged follow up discussions with PCP in follow up. Also encouraged to get her bowels moving regularly as constipation no doubtly playing a role and improvement since moving them as well. Hypotension- in GI office, resolved w/ IVF and stable OFF 121/72 prior to discharge with advancement and tolerance of diet with continued metoprolol #Palpitations -reported issue, TSH wnl in the past 30 days and remained on metoprolol. tele stable/HR controlled and suspect component of anxiety as well. Does have thyroid nodule but not at size for aspiration but can f/u with PCP to consider/further discussions #Insomnia -Ambien continued, reported better sleep last night and encouraged adequate sleep for mental health #Migraines - hx of such, improved with tx above/supportive care. can have INGRAM from zofran as well. No focal findings Notes For Next Care Provider encouraged avoidance of THC/gummies to worsen pain (has been using for knee pain) GI f/u if ongoing issues for possible irritable bowel --? underlying fibromyalgia. Do note neuro outpt note from 11/22/22 with trial of effexor for her migraines and did note that she refused on occasion while inpatient w/ worsened pain following and could consider further increasing in follow up for underlying anxiety/depresion (noting could make anxiety sx worse though and was not done inpatient) consideration for additional thyroid testing given family hx lymphoma however no lymphocytosis or lymphopenia on admission, no enlarged lymph nodes on CTAP or concerns for metastatic disease given her strong concerns for underlying malignancy Medication Changes From Visit Protonix 40mg PO BID Pepcid 40mg PO BID Stop omeprazole/carafate STOP THC gummies Admission HPI Per Admitting Provider 68-year-old female PMHx diverticulitis, renal calculi, CAD, PVCs, celiac artery compression, insomnia 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 Patient was seen at outpatient GI appointment on the day of arrival in which she was found to be hypotensive and this is why she was encouraged to come to the ED. States that she has been having abdominal pain that comes in waves but over the past 5 days, the pain worsened and became more severe. She started to experience sharp pain in her central abdomen that did not originally radiate, but then as the days progressed it started to move to the RUQ. States that she has had an "ulcerated stomach" identified approximately 2 years ago on endoscopy, but no other concerns since then. 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 She then saw her PCP 1 day ADVERTISING EDITOR who encouraged her to follow up with GI. On the day of arrival patient was seen by GI and initially was to be managed as outpatient with a bowel regimen and her usual medications, but when they checked her BP, she was hypotensive in the 80s. States that her current pain is still sharp and located throughout her abdomen now. Has had issues with constipation in the past. Has had episodes of nausea without vomiting. Does feel that her symptoms revolve around eating, stating that she starts to have pain and nausea as soon as she eats but she has not had any vomiting. Did have some dizziness the day of arrival but states it is mainly with positional changes and she reports poor intake over the days leading to admission. Denies F/C. No chest pain, SOB, palpitations, numbness/tingling, INGRAM, or URI symptoms. States she tries to stay away from IBU and takes Tylenol and CBD for pain/headache. ED evaluation reveals no leukocytosis, stable H&H 11.8/36.5, sodium 133, LFTs WNL, lipase 33; UA WNL with infection; BioFire negative; CTAP without acute findings; CXR without acute findings; gallbladder ultrasound cholelithiasis without evidence of acute cholecystitis, small hepatic cyst unchanged, unchanged fatty infiltrate of liver; EKG NSR at [address] Nguyễn's attestation for adjustments/additions to treatment plan. Admission Exam Per Admitting Provider General: No acute distress Skin: Warm and dry Head: Normocephalic, atraumatic Eyes: PERRL, conjunctivae clear, sclera non-icteric ENT: External ear and ear canal without swelling; nose atraumatic; good dentition, tongue normal appearance, pharynx normal Neck: Supple, no LAD Cardio: RRR, no M/G/R, S1 and S2 normal Resp: No respiratory distress, Lungs CTA in all lobes bilaterally, no wheezes, rales, or rhonchi Abdomen: Soft, symmetric, tenderness to palpation L side abdomen, slight tenderness at epigastric region; No masses or hepatosplenomegaly; Bowel sounds normoactive MSK: No deformities; pulses palpable and equal; no edema. Neuro: Awake, alert; Sensation intact bilaterally; CN grossly intact Psych: Appropriate mood and affect; good judgement and insight. Fidgeting throughout visit. Discharge Exam General: 68 yo female visiting with her roommate, appears better today but ongoing epigastric pain HEENT: Head atraumatic, normocephalic, mm improved trachea midline Resp: clear, no wheezing/rales, on room air CV; RRR, no m/r/g, no pitting edema GI: +BS, decreased epigastric tenderness, no overt guarding/rebound and abdomen remains SOFT MSK/Neuro: nonfocal, moves all extremities, not confused Psych: AOx3, anxious at times Discharge Plan Discharge Items Patient Disposition: Home - Self-Care Reason For Visit: ABDOMINAL PAIN Discharge Diagnosis: Gastritis Condition on Discharge: Good Goals: You have been hospitalized for an acute medical problem. During your stay at [facility], we have made an effort to correct the problem that brought you to the hospital while keeping you as comfortable as possible. Medications were used to bring your condition under control and your discharge instructions will include directions for any medications you should take after leaving the hospital. Please make sure you see your Primary Care Provider as part of your follow up plan. Activity: As commented below Non-emergency contact: Primary Care Provider and Cable Respooler Call non-emergency contact if: you have any medication questions, your symptoms worsen, your pain is worsening and you have a fever Follow-up/Referrals: Samina Duran PA-C [Physician Burring Machine Operator] - (2-3 weeks) Paula Kc MD [Primary Care Provider] - 06/22/24 11:30 am Diet: Heart Healthy Addtl Attending Provider Instructions: You have been hospitalized for abdominal pain and GI was consulted and we did several tests to ensure no issues with your gallbladder and have been negative EGD (scope) for upper GI tract did NOT show any ulcers but did show inflammation in duodenum (part of distal stomach), consistent with gastritis and should continue protonix twice daily and pepcid twice daily. It may take up to a full week for results and as discussed would AVOID THC gummies as they can make GI symptoms worse. Can use your already prescribed zofran for nausea but be cautious of spicy foods and avoid NSAIDs (ibuprofen, naproxen, aleeve) as these can make gastritis worse. You should follow up with primary care in the next week to monitor your status. You can follow up with GI for evaluation of irritable bowel if ongoing issues despite treatment. Please return to the ER if unable to keep down oral intake/maintain hydration, worsened abdominal pain or fever or for any other symptoms concerning for you. It has been a pleasure being a part of the medical team providing for you while you have been in the hospital. Take care! Continue protonix twice daily, pepcid twice daily. ?need for H Pylori treatment. Biopsies pending (prior biopsy negative for H pylori, no recent NSAID use but does use fioricet for migraines) Pending Studies at Discharge: Yes Studies:: Biopsy from EGD Stand-Alone Forms: My [facility], Smoking Cessation Medications and DC Order Prescriptions: New famotidine [Pepcid] 40 mg tablet 40 mg PO BID Qty: 60 0RF pantoprazole 40 mg tablet,delayed release (DR/EC) 40 mg PO BID Qty: 60 0RF Continued cholecalciferol (vitamin D3) 25 mcg (1,000 unit) capsule 25 mcg PO QPM magnesium oxide 400 mg (241.3 mg magnesium) tablet 400 mg PO QPM metoprolol succinate 25 mg tablet extended release 24 hr 12.5 mg PO QPM Qty: 90 3RF Rx Instructions: Take 1/2 tablet by mouth daily in the evening. venlafaxine 25 mg tablet 25 mg PO BID Qty: 180 3RF acyclovir 200 mg capsule 200 mg PO QPM Qty: 90 3RF [id number] [Fioricet] 50-300-40 mg capsule 1 cap PO Q8H PRN (Reason: pain) Qty: 30 0RF aspirin 81 mg tablet,delayed release (DR/EC) 81 mg PO HS riboflavin (vitamin B2) 100 mg tablet 200 mg PO QPM ketoconazole 2 % shampoo 1 applic topical .COMPLEX Qty: 120 4RF Rx Instructions: Wash scalp 2 times weekly. Let sit for 3-5 minutes prior to rinsing.; ondansetron 4 mg tablet,disintegrating 4 mg PO Q8H PRN (Reason: nausea and vomiting) Qty: 20 0RF triamcinolone acetonide [Nasacort] 55 mcg aerosol,spray 2 spray intranasal DAILY PRN (Reason: Nasal Congestion) Rx Instructions: administer into each nostril mecobalamin (vitamin B12) 500 mcg tablet,chewable 500 mcg PO DAILY CBD 2 tab PO HS Patient Comments: Takes 50-100mg a day Rx Instructions: GUMMIES FOR KNEE PAIN melatonin 3 mg Tablet 3 mg PO HS zolpidem [Ambien] 5 mg tablet 5 mg PO HS PRN (Reason: Sleep) Rx Instructions: (may repeat dose x 1 as needed) Discontinued sucralfate 1 gram tablet 1 g PO ACHS Qty: 136 0RF famotidine 20 mg tablet 40 mg PO BID Rx Instructions: PER PT "NEW ORDER" omeprazole 20 mg capsule,delayed release(DR/EC) 40 mg PO HS Rx Instructions: PER PT "NEW ORDER". Discharge Orders: Discharge Order (Routine); Ordered 06/13/24 Ordered By: Katelyn Mike/Other Patient Handouts: Famotidine Oral Tablet, Pantoprazole Delayed Release Oral Tablet Admission Data Admit Date/Time: 06/09/24 19:31 Attending Provider: Ilya Amaya Admit Provider: Suzi Nguyễn Primary Care Provider: Paula Kc Other Providers: Raman Silva; Ziggy Means Other Interventions: Discharge Summary Assessment (RN) Last Done: 06/13/24 11:18 Hospital Stay Data Consultations 06/09/24 17:53 ED Decision to Admit Stat 06/09/24 18:40 Consult Gastroenterology Routine Procedures Performed Operation Date: 06/12/24 16:30 Actual Procedures p EGD Biopsy Cytology - Ziggy Means MD Diagnostic Imagining Performed Abdomen/Pelvis CT 06/09/24 14:[address] WITH IV CONTRAST CT DOSE: 1134.83 mGy.cm HISTORY: Abd pain, nausea, hypotension (prehospital) TECHNIQUE: Multiaxial CT images of the abdomen and pelvis were performed following the IV administration of 90 cc of Optiray, A dose lowering technique was utilized adhering to the principles of ALARA. COMPARISON STUDY: 05/29/2019 FINDINGS: ABDOMEN: Small cyst lateral right hepatic lobe is stable. Otherwise the liver, gallbladder, spleen, pancreas, and adrenal glands are unremarkable. Kidneys show no hydronephrosis or calculi. There are mild atherosclerotic calcifications. No abdominal aortic aneurysm. Pelvis: Uterus and adnexa are grossly unremarkable. Urinary bladder is decompressed. There is moderate retained stool. There is mild colonic diverticulosis. No acute diverticulitis. No bowel inflammation or obstruction. Normal appendix. No free fluid, free air, or abscess. No enlarged adenopathy. Osseous structures: No acute osseous findings. IMPRESSION: No acute findings. ACT 112: Negative or not required by law. The above report was generated using voice recognition software. It may contain grammatical, syntax or spelling errors. Electronically signed by: Benoit Worrell M.D. 06/09/2024 4:00 PM Chest X-Ray 06/09/24 14:26 XR chest 1V portable CLINICAL HISTORY: Upper abd pain COMPARISON STUDY: 11/14/2021 FINDINGS: Heart size and pulmonary vasculature are normal. No effusion, c onsolidation, or pneumothorax. IMPRESSION: No acute findings. ACT 112: Negative or not required by law. Electronically signed by: Benoit Worrell M.D. 06/09/2024 2:48 PM Gallbladder Ultrasound 06/09/24 16:09 Clinical history: Right upper quadrant pain Technique: Sonography was performed of the right upper quadrant of the abdomen Comparison is made to the liver ultrasound dated 05/29/2023 Findings: There is fatty infiltration of the liver. There is an unchanged 1.7 cm simple appearing cyst in the right hepatic lobe anteriorly. No definite liver mass is seen. There is normal directional flow in the main portal vein Multiple gallstones are present. The gallbladder wall is of normal thickness. No definite sonographic Mercedes sign was detected. There is no intrahepatic or extrahepatic bile duct dilatation. The common bile duct measures 5 mm The right kidney demonstrates normal size and echogenicity. There is no hydronephrosis. No definite renal calculus or mass is seen The visualized pancreas, aorta, and IVC appear unremarkable. No ascites is seen Impression: 1. Cholelithiasis without evidence of acute cholecystitis 2. Small hepatic cyst, unchanged 3. Unchanged fatty infiltration of the liver Electronically signed by George Garcia 06-09-2024 5:34 PM Hepatobiliary Scan Nuclear Medicine 06/10/24 10:25 NUCLEAR MEDICINE HEPATOBILIARY SCAN CLINICAL HISTORY: Abdominal pain. COMPARISON: CT of the abdomen and pelvis and right upper quadrant ultrasound June 09, 2024. TECHNIQUE: 5.1 mCi of technetium 99m Choletec IV was injected at 1:34 PM on June 10, 2024. Immediately following injection, imaging of the abdomen was carried out for 60 minutes in the anterior projection. FINDINGS: Hepatic uptake of radiotracer is prompt and homogeneous. Activity is identified within the gallbladder at 10 minutes. Common bile duct activity is confidently identified at 60 minutes. Small bowel activity was identified at 120 minutes. IMPRESSION: 1. No evidence for acute cholecystitis. 2. Delayed visualization of small bowel activity, a nonspecific finding which can be due to sphincter spasm, sphincter dysfunction or partial common bile duct obstruction. Findings could be correlated with obstructive liver function tests. ACT 112: Negative or not required by law. Electronically signed by: Jignesh Fontenot M.D. 06/10/2024 3:47 PM Cholangiopancreatography MRI 06/12/24 07:18 MRCP CLINICAL HISTORY: epigastric pain; abnormal HIDA TECHNIQUE: Utilizing a 3 Noemí magnet and dedicated coil, multiplanar, multiecho imaging of the upper abdomen was performed utilizing heavily T2 weighted pulsing sequences without IV contrast. COMPARISON STUDY: CT of the abdomen and pelvis and right upper quadrant ultrasound June 09, 2024. FINDINGS: There is no intra or extrahepatic biliary ductal dilatation. The common bile duct measures 5 mm in caliber. No common bile duct calculi are identified. Course and caliber of the main pancreatic duct are normal. The small calcified gallstones on CT of June 09, 2024 are not well-visualized by MRI. No gallbladder wall thickening. No pericholecystic fluid is present. A 1.7 cm right hepatic lobe cyst is noted. There are no suspicious hepatic lesions on unenhanced exam. Spleen, adrenal glands, kidneys and pancreas are unremarkable. There is no hydronephrosis. No abdominal lymphadenopathy or ascites is present. Caliber of visualized small and large bowel are normal. IMPRESSION: 1. No biliary ductal dilatation. No common bile duct calculi identified. 2. No pancreatic ductal dilatation. 3. Small calcified gallstones on CT of June 09, 2024 not well-visualized by MRI. No evidence for acute cholecystitis. ACT 112: Negative or not required by law. Electronically signed by: Jignesh Fontenot M.D. 06/12/2024 10:[address] Means 06/12 Findings: - The examined jejunum was normal. Biopsies were taken with a cold forceps for histology. - Patchy mildly erythematous mucosa was found in the duodenal bulb. No erosions/ulcerations seen. - The exam of the duodenum was otherwise normal. - Biopsies were taken with a cold forceps for histology. - The entire examined stomach was normal. No retained food or fluid. Pylorus patent. A number of benign appearing fundic gland polyps. Gastric biopsies were taken with a cold forceps for histology. - A 2 cm hiatal hernia was present. - A non-obstructing Schatzki ring was found at the gastroesophageal junction along with some distal esophageal scarring. The esophagus was otherwise normal. Impression: - Erythematous bulboduodenopathy. - 2 cm hiatal hernia. - Non-obstructing Schatzki ring. Otherwise normal exam. Discharge Instructions Given to Patient (Per Discharging Provider) You have been hospitalized for abdominal pain and GI was consulted and we did several tests to ensure no issues with your gallbladder and have been negative EGD (scope) for upper GI tract did NOT show any ulcers but did show inflammation in duodenum (part of distal stomach), consistent with gastritis and should continue protonix twice daily and pepcid twice daily. It may take up to a full week for results and as discussed would AVOID THC gummies as they can make GI symptoms worse. Can use your already prescribed zofran for nausea but be cautious of spicy foods and avoid NSAIDs (ibuprofen, naproxen, aleeve) as these can make gastritis worse. You should follow up with primary care in the next week to monitor your status. You can follow up with GI for evaluation of irritable bowel if ongoing issues despite treatment. Please return to the ER if unable to keep down oral intake/maintain hydration, worsened abdominal pain or fever or for any other symptoms concerning for you. It has been a pleasure being a part of the medical team providing for you while you have been in the hospital. Take care! Continue protonix twice daily, pepcid twice daily. ?need for H Pylori treatment. Biopsies pending (prior biopsy negative for H pylori, no recent NSAID use but does use fioricet for migraines) Supervising Physician Co-Signing Physician Notes The patient was not seen by me. The chart was reviewed. Case discussed with RAY Ghotra. Agree with assessment and plan Total Time Total Time Spent Total Time Spent (In Minutes): 65 Coding Level of Care Code 78134 INP/OBS DISCH >30 MIN Diagnoses Abdominal pain R10.9
== END 2024-06-13 11:44 | disposition home or self-care (01) ==
LOC: ED 12:07 → 2N 19:31 → INTOOBSV 19:31 → SUATTDRO 19:31 → 2N 20:16